=== PATIENT | female | born 1935 | race Caucasian/White ===

== ENCOUNTER → 2016-05-16 | Outpatient (CLI) | payer MEDICARE ==
[2016-05-16 10:50] LABS: ANION GAP 11 (5-19); BLOOD UREA NITROGEN 20 mg/dL (7-20); CALCIUM 9.3 mg/dL (8.4-10.2); CARBON DIOXIDE 30 mmol/L (22-30); CHLORIDE 89 mmol/L (98-107); CHOLESTEROL 194.05 mg/dL (0-200); CREATININE RESULT 0.63 mg/dL (0.52-1.25); Direct HDL 91 mg/dL (>40); GLUCOSE 81 mg/dL (75-110); POTASSIUM 4.8 mmol/L (3.6-5.0); SODIUM 129.7 mmol/L (137-145); TRIGLYCERIDES 104 mg/dL (<150)
[2016-05-16 11:01] LABS: DIRECT LDL 84 mg/dL (<100)
== END ==
LOC: OD 08:13
PROVIDERS: ATTEND Internal Medicine Cardiovascular Disease
DX: Z79.899 Other long term (current) drug therapy (principal)
CPT/HCPCS: 36415; 80048; 80061

== ENCOUNTER → 2016-06-08 | Outpatient (CLI) | payer MEDICARE | LOC: WI 14:21 | PROVIDERS: ATTEND Family Medicine | DX: Z12.31 Encounter for screening mammogram for malignant neoplasm of breast (principal) | CPT/HCPCS: 77067; G0202 ==

== ENCOUNTER 2016-06-21 21:18 | Emergency (ER) | payer MEDICARE ==
[2016-06-21 22:17] LABS: HEMATOCRIT 33.5 % (36.0-47.0); HEMOGLOBIN 11.6 g/dL (12.0-15.5); HGB HCT DIFFERENCE 1.3
[2016-06-21 22:37] LABS: MEAN CORPUSCULAR HEMOGLOBIN 34.2 pg (27.0-33.4); MEAN CORPUSCULAR HGB CONC 34.7 g/dL (32.0-36.0); MEAN CORPUSCULAR VOLUME 99 fl (80-97); RED CELL DISTRIBUTION WIDTH 12.6 % (11.5-14.0); WHITE BLOOD COUNT 9.6 10^3/uL (4.0-10.5)
[2016-06-21 22:41] LABS: BAND NEUTROPHILS % (MANUAL) 1 % (3-5); BASOPHILS % (MANUAL) 0 % (0-2); EOSINOPHILS % (MANUAL) 1 % (0-6); LYMPHOCYTES % (MANUAL) 15 % (13-45); TOTAL CELLS COUNTED 100
[2016-06-21 22:43] LABS: PLATELET CLUMPS PRESENT; RBC MORPHOLOGY COMMENT NORMO-CYTIC/CHROMIC
[2016-06-21 23:32] LABS: ALANINE AMINOTRANSFERASE 41 U/L (9-52); ALBUMIN 3.8 g/dL (3.5-5.0); ALKALINE PHOSPHATASE 106 U/L (38-126); ANION GAP 10 (5-19); ASPARTATE AMINO TRANSFERASE 29 U/L (14-36); BILIRUBIN,TOTAL 0.3 mg/dL (0.2-1.3); BLOOD UREA NITROGEN 22 mg/dL (7-20); CALCIUM 9.5 mg/dL (8.4-10.2); CARBON DIOXIDE 28 mmol/L (22-30); CHLORIDE 87 mmol/L (98-107); CREATINE KINASE 39 U/L (30-135); CREATININE RESULT 0.75 mg/dL (0.52-1.25); GLUCOSE 132 mg/dL (75-110); POTASSIUM 4.3 mmol/L (3.6-5.0); SODIUM 125.2 mmol/L (137-145); TOTAL PROTEIN 6.5 g/dL (6.3-8.2)
[2016-06-21 23:44] LABS: TROPONIN I < 0.012 ng/mL
[2016-06-22] MEDS ORDERED: NORMAL SALINE 1000 ML 1,000 ML IV ONE (01:01)
[2016-06-22 01:37] LABS: APPEARANCE,URINE CLOUDY; BILIRUBIN,URINE NEGATIVE (NEGATIVE); GLUCOSE, URINE NEGATIVE (NEGATIVE); KETONES,URINE NEGATIVE (NEGATIVE); LEUKOCYTE ESTERASE,URINE MODERATE (NEGATIVE); NITRITE,URINE NEGATIVE (NEGATIVE); PROTEIN,URINE 100 mg/dL (NEGATIVE); URINE SPECIFIC GRAVITY 1.009; UROBILINOGEN,URINE NEGATIVE mg/dL (<2.0)
[2016-06-22] MEDS ORDERED: CEPHALEXIN 500 MG CAPSULE PO ONE (03:54)
--- NOTE | 2016-06-22 03:57 | ER Document Report ---
ED General - General Chief Complaint: Syncope Stated Complaint: DIZZY Notes: Patient is an 80-year-old female with past medical history of hyponatremia, seizures, hypertension and paroxysmal atrial fibrillation who presents after an episode of syncope today. States this she was going from a sitting to standing position after urinating. Her states that she then began to lose consciousness and he helped her slide down a wall and gently sit on the floor. She's had multiple episodes of similar syncope in the past. This episode did occur approximately 45 minutes to one hour after taking her dose of metoprolol. She denies any preceding symptoms of chest pain, shortness of breath nausea or vomiting. States is identical to her prior episodes of passing out. At the time of my evaluation she denies any acute complaints. She has not seen her primary care doctor regarding today's concerns. Nothing is noted to increase the frequency of these episodes of syncope or prevent them. States that she's been eating and drinking adequately at home. TRAVEL OUTSIDE OF THE [place] IN LAST 30 DAYS: No - Related Data Allergies/Adverse Reactions: lisinopril Adverse Reaction (Verified 06/21/16 23:05) cough Past Medical History - General Information source: Patient, Parent - Social History Smoking Status: Never Smoker Frequency of alcohol use: None Drug Abuse: None Lives with: Spouse/Significant other Family History: Reviewed & Not Pertinent - Past Medical History Cardiac Medical History: Reports: Hx Atrial Fibrillation, Hx Hypercholesterolemia, Hx Hypertension Denies: Hx Congestive Heart Failure, Hx DVT, Hx Pulmonary Embolism Pulmonary Medical History: Denies: Hx Asthma, Hx COPD Neurological Medical History: Reports: Hx Seizures Endocrine Medical History: Reports: Hx Hypothyroidism. Denies: Hx Diabetes Mellitus Type 1, Hx Diabetes Mellitus Type 2, Hx Hyperthyroidism GI Medical History: Denies: Hx Cirrhosis, Hx Gastroesophageal Reflux Disease, Hx Hepatitis Musculoskeltal Medical History: Reports Hx Arthritis Psychiatric Medical History: Denies: Hx Depression Infectious Medical History: Denies: Hx Hepatitis Past Surgical History: Reports: Hx Cholecystectomy, Hx Hysterectomy, Hx Orthopedic Surgery - bilateral knee - Immunizations Immunizations up to date: Yes Hx Diphtheria, Pertussis, Tetanus Vaccination: Yes Hx Pneumococcal Vaccination: 02/11/14 Review of Systems - Review of Systems Notes: Constitutional: Negative for fever. HENT: Negative for sore throat. Eyes: Negative for visual changes. Cardiovascular: Negative for chest pain. Positive for syncope Respiratory: Negative for shortness of breath. Gastrointestinal: Negative for abdominal pain, vomiting or diarrhea. Genitourinary: Negative for dysuria. Musculoskeletal: Negative for back pain. Skin: Negative for rash. Neurological: Negative for headaches, weakness or numbness. 10 point ROS negative except as marked above and in HPI. Physical Exam - Vital signs Vitals: Temp 98.3 F 06/21/16 21:20 Interpretation: Normal Notes: PHYSICAL EXAMINATION: GENERAL: Well-appearing, well-nourished and in no acute distress. HEAD: Atraumatic, normocephalic. EYES: Pupils equal round and reactive to light, extraocular movements intact, sclera anicteric, conjunctiva are normal. ENT: nares patent, oropharynx clear without exudates. Moist mucous membranes. NECK: Normal range of motion, supple without lymphadenopathy LUNGS: Breath sounds clear to auscultation bilaterally and equal. No wheezes rales or rhonchi. HEART: Regular rate and rhythm without murmurs ABDOMEN: Soft, nontender, normoactive bowel sounds. No guarding, no rebound. No masses appreciated. EXTREMITIES: Normal range of motion, no pitting or edema. No cyanosis. NEUROLOGICAL: No focal neurological deficits. Moves all extremities spontaneously and on command. PSYCH: Normal mood, normal affect. SKIN: Warm, Dry, normal turgor, no rashes or lesions noted. Course - Re-evaluation Re-evalutation: 06/22/16 03:51 Presentation of syncope of unclear etiology. Patient normotensive, alert, without focal neurologic deficits at time of arrival. Denies syncope was during exertion. No preceding symptoms of palpitations, chest pain, or shortness of breath. Patient asymptomatic at time of arrival. EKG is without evidence of HCOM , right heart strain, ST changes to suggest ischemia, prolong QTc, delta wave, epsilon wave, or Brugada syndrome. Patient denies any family history of sudden cardiac , personal history of of structural heart disease. Patient denies any symptoms to suggest an acute PE, CO, TAD, SAH, seizure, or acute GI bleed as the etiology of their syncope today. On exam, no murmurs to suggest critical aortic stenosis as possible etiology. Of note, patient's symptoms occurred approximately one hour after taking metoprolol and I suspect this medication is likely contributed to her repeated episodes of syncope. I've encouraged the family discussed with the primary care doctor with discontinuing this medication as opposed to attempting aggressive blood pressure control. Based on overall clinical history, exam findings, vitals, and patients appearance, I feel it is safe for patient to be discharged home at this time with close outpatient follow-up and strict return precautions. Patient is in agreement with this plan, has verbalized indications for return to ED, and questions have been answered. - Vital Signs Vital signs: Temp Pulse Resp BP Pulse Ox 97.7 F 64 12 131/66 H 100 06/22/16 03:45 06/21/16 23:55 06/22/16 03:01 06/22/16 03:01 06/22/16 03:01 - Laboratory Result Diagrams: 06/21/16 22:08 06/21/16 23:12 Laboratory results interpreted by me: 06/21/16 06/21/16 06/22/16 22:08 23:12 01:10 RBC 3.40 L Hgb 11.6 L Hct 33.5 L MCV 99 H MCH 34.2 H Band Neutrophils % 1 L Sodium 125.2 L Chloride 87 L BUN 22 H Glucose 132 H Urine Protein 100 H Urine Blood SMALL H Ur Leukocyte Esterase MODERATE H - EKG Interpretation by Me Additional EKG results interpreted by me: 06/22/16 03:52 Sinus rhythm. Rate 67. No ST elevations or depressions. QTC is 427. Discharge - Discharge Clinical Impression: Hyponatremia, Medication adverse effect Syncope Qualifiers: Syncope type: unspecified Qualified Code(s): R55 - Syncope and collapse Urinary tract infection Qualifiers: Urinary tract infection type: acute cystitis Hematuria presence: without hematuria Qualified Code(s): N30.00 - Acute cystitis without hematuria Condition: Good Disposition: HOME, SELF-CARE Additional Instructions: You were seen today after an episode of passing out. Your EKG here is normal. At this time, we do not feel that your episode of passing out was from any life- threatening cause. I do believe the medication your taking call metoprolol is john to your episodes of passing out and you should discuss with your primary doctor about discontinuing this medicine. Please drink plenty of fluids over the next several days. Return to emergency department if you have any further episodes of syncope, headache, weakness, numbness, chest pain, or shortness of breath. Please follow up closely with your primary care physician. Prescriptions: Cephalexin Monohydrate [Keflex 500 mg Capsule] 500 mg PO QID #20 capsule Referrals: BENOIT DUPONT MD [Primary Care Provider] - Follow up tomorrow
[2016-06-22 04:36] VITALS: BP 158/76
--- NOTE | 2016-06-22 08:20 | EKG REPORT ---
SEVERITY:- OTHERWISE NORMAL ECG - SINUS OR ECTOPIC ATRIAL RHYTHM BORDERLINE LEFT AXIS DEVIATION : Confirmed by: Usha Root MD 22-Jun-2016 08:19:23
== END 2016-06-22 04:10 | disposition home or self-care (01) ==
LOC: ER 21:18
DX: E87.1 Hypo-osmolality and hyponatremia (principal); N30.00 Acute cystitis without hematuria; R55 Syncope and collapse; T50.995A Adverse effect of other drugs, medicaments and biological substances, initial encounter; R42 Dizziness and giddiness; I48.91 Unspecified atrial fibrillation; E78.00 Pure hypercholesterolemia, unspecified; I10 Essential (primary) hypertension; E03.9 Hypothyroidism, unspecified; Z90.49 Acquired absence of other specified parts of digestive tract; Z90.710 Acquired absence of both cervix and uterus
CPT/HCPCS: 93005; 99284; 36415; 87086; 82553; 82550; 85025; 80053; 81001; 84484; 93010; J7030

== ENCOUNTER → 2016-07-03 | Outpatient (CLI) | payer MEDICARE ==
[2016-07-03 09:40] LABS: ALANINE AMINOTRANSFERASE 44 U/L (9-52); ALBUMIN 3.9 g/dL (3.5-5.0); ALKALINE PHOSPHATASE 115 U/L (38-126); ASPARTATE AMINO TRANSFERASE 31 U/L (14-36); BILIRUBIN,TOTAL 0.4 mg/dL (0.2-1.3); TOTAL PROTEIN 6.9 g/dL (6.3-8.2); TRIGLYCERIDES 79 mg/dL (<150)
[2016-07-03 09:46] LABS: ANION GAP 11 (5-19); BLOOD UREA NITROGEN 18 mg/dL (7-20); CALCIUM 9.8 mg/dL (8.4-10.2); CARBON DIOXIDE 29 mmol/L (22-30); CHLORIDE 89 mmol/L (98-107); CREATININE RESULT 0.63 mg/dL (0.52-1.25); GLUCOSE 88 mg/dL (75-110); POTASSIUM 4.8 mmol/L (3.6-5.0); SODIUM 128.9 mmol/L (137-145)
[2016-07-03 09:50] LABS: DIRECT LDL 53 mg/dL (<100)
[2016-07-03 09:55] LABS: Direct HDL 113 mg/dL (>40)
== END ==
LOC: OD 08:23
PROVIDERS: ATTEND Internal Medicine Cardiovascular Disease
DX: E78.00 Pure hypercholesterolemia, unspecified (principal); Z79.899 Other long term (current) drug therapy
CPT/HCPCS: 36415; 80048; 80061; 80076

== ENCOUNTER 2016-07-09 21:19 | Inpatient (IN) | payer MEDICARE ==
--- NOTE | 2016-07-09 21:37 | ER Document Report ---
ED Medical Screen (RME) - General Stated Complaint: RAPID HEART RATE Mode of Arrival: Wheelchair Information source: Patient Notes: Patient presents to the emergency department with reports of rapid heart rate that started last afternoon. She denies chest pain. Denies fever vomiting diarrhea. Reports shortness of breath. History of A. fib. EKG ST. HR 150-160' s. I have greeted and performed a rapid initial assessment of this patient. A comprehensive ED assessment and evaluation of the patient, analysis of test results and completion of the medical decision making process will be conducted by additional ED providers. TRAVEL OUTSIDE OF THE [place] IN LAST 30 DAYS: No - Related Data Allergies/Adverse Reactions: lisinopril Adverse Reaction (Verified 06/21/16 23:05) cough Past Medical History - Past Medical History Cardiac Medical History: Reports: Hx Atrial Fibrillation, Hx Hypercholesterolemia, Hx Hypertension Denies: Hx Congestive Heart Failure, Hx DVT, Hx Pulmonary Embolism Pulmonary Medical History: Denies: Hx Asthma, Hx COPD Neurological Medical History: Reports: Hx Seizures Endocrine Medical History: Reports: Hx Hypothyroidism. Denies: Hx Diabetes Mellitus Type 1, Hx Diabetes Mellitus Type 2, Hx Hyperthyroidism GI Medical History: Denies: Hx Cirrhosis, Hx Gastroesophageal Reflux Disease, Hx Hepatitis Musculoskeltal Medical History: Reports Hx Arthritis Psychiatric Medical History: Denies: Hx Depression Infectious Medical History: Denies: Hx Hepatitis Past Surgical History: Reports: Hx Cholecystectomy, Hx Hysterectomy, Hx Orthopedic Surgery - bilateral knee - Immunizations Immunizations up to date: Yes Hx Diphtheria, Pertussis, Tetanus Vaccination: Yes
[2016-07-09] MEDS ORDERED: DILTIAZEM HCL INJ 25 MG/5 ML VIAL IV ONE (21:48)
[2016-07-09] MEDS ORDERED: DILTIAZEM HCL/D5W 125 ML IV PRN (21:48)
[2016-07-09] MEDS ORDERED: NORMAL SALINE 1000 ML 1,000 ML IV ONE (21:48)
--- NOTE | 2016-07-09 21:54 | ER Document Report ---
ED Cardiac <RENATA DENNEY - Last Filed: 07/10/16 02:07> - General Mode of Arrival: Wheelchair Information source: Patient, Relative - TRAVEL OUTSIDE OF THE [place] IN LAST 30 DAYS: No - HPI Patient complains to provider of: Other - rapid heart rate Associated symptoms: Other - See above <PEREZPARISAKISHORE - Last Filed: 07/15/16 10:15> - General Chief Complaint: Irregular Pulse Stated Complaint: RAPID HEART RATE Notes: This 80-year-old female patient comes to the emergency room with rapid heart rate that started around 7 PM this evening. Her gave her diltiazem 120 mg prior to arrival. She does have a history of paroxysmal atrial fibrillation. She has some mild dementia and tremor without a diagnosis for the tremor yet. It may well be Parkinson's. She denies any chest pain, or shortness of breath. EKG in the emergency room shows atrial fibrillation with a ventricular response rate of 154. She was given IV fluids, 15 mg of Cardizem IV bolus, and converted to normal sinus rhythm. Her primary care provider is Dr. Apodaca in her information systems coordinator is Dr. Edilberto Koo. (RENAAT DENNEY) Patient is an 80 year old female, with a past medical history including dementia , HTN and A-Fib, who presents to the emergency department complaining of rapid heart rate onset at 1900 this evening. reports he administered 120mg of Diltiazem at 2000. Patient denies any chest pain or chest pressure. Patient denies being on any fluid pills and has no history of CHF. Patient does not know what her tremor is diagnosed as, is unsure if it is Parkinson's. Per patient saw Dr. Franklin last week and was told she was normal. PCP: Dr. Apodaca Cash Van Salesperson: Dr. Franklin (PEREZKISHORE) - Related Data Allergies/Adverse Reactions: lisinopril Adverse Reaction (Verified 07/10/16 02:34) cough Home Medications: Current Home Medications Aspirin [Aspirin 81 mg Chewable Tablet] 81 mg PO QAM 07/10/16 [History] Carbamazepine [Tegretol 200 mg Tablet] 200 mg PO TID@0800,1500,2200 07/10/16 [ History] Docusate Sodium [Colace 100 mg Capsule] 100 mg PO BID@0800,2200 07/10/16 [ History] Ezetimibe [Zetia 10 mg Tablet] 10 mg PO DAILY@1900 07/10/16 [History] Gabapentin [Neurontin 100 mg Capsule] 100 mg PO TID@0800,1500,2200 07/10/16 [ History] Levothyroxine Sodium [Synthroid 0.05 mg Tablet] 50 mcg PO DAILY@0700 07/10/16 [ History] Memantine HCl [Namenda Xr] 7 mg PO QHS 07/10/16 [History] Rosuvastatin Calcium [Crestor 20 mg Tablet] 20 mg PO Q48H 07/10/16 [History] Zinc Sulfate [Zinc-220 Capsule] 220 mg PO QAM 07/10/16 [History] Past Medical History - General Information source: Patient - Social History Smoking Status: Never Smoker Chew tobacco use (# tins/day): No Frequency of alcohol use: None Drug Abuse: None Family History: Reviewed & Not Pertinent Patient has suicidal ideation: No Patient has homicidal ideation: No - Past Medical History Cardiac Medical History: Reports: Hx Atrial Fibrillation, Hx Hypercholesterolemia, Hx Hypertension Neurological Medical History: Reports: Hx Seizures Endocrine Medical History: Reports: Hx Hypothyroidism Musculoskeltal Medical History: Reports Hx Arthritis Past Surgical History: Reports: Hx Cholecystectomy, Hx Hysterectomy, Hx Orthopedic Surgery - bilateral knee replacement - Immunizations Immunizations up to date: Yes Hx Diphtheria, Pertussis, Tetanus Vaccination: Yes Hx Pneumococcal Vaccination: 02/11/14 <KISHORE PEREZ - Last Filed: 07/15/16 10:15> Review of Systems - Review of Systems Constitutional: No symptoms reported EENT: No symptoms reported Cardiovascular: See HPI, Heart racing. denies: Chest pain Respiratory: No symptoms reported Gastrointestinal: No symptoms reported Genitourinary: No symptoms reported Female Genitourinary: No symptoms reported Musculoskeletal: No symptoms reported Skin: No symptoms reported Hematologic/Lymphatic: No symptoms reported Neurological/Psychological: No symptoms reported -: Yes All other systems reviewed and negative <KISHORE PEREZ - Last Filed: 07/15/16 10:15> Physical Exam - Vital signs Interpretation: Tachycardic - General General appearance: Appears well, Alert - HEENT Head: Normocephalic, Atraumatic - Respiratory Respiratory status: No respiratory distress Chest status: Nontender Breath sounds: Normal Chest palpation: Normal - Cardiovascular Rhythm: Tachycardia Heart sounds: Normal auscultation Murmur: No - Abdominal Inspection: Normal Distension: No distension Bowel sounds: Normal Tenderness: Nontender - soft Organomegaly: No organomegaly - Extremities General upper extremity: Normal inspection General lower extremity: Normal inspection. No: Edema - Neurological Neuro grossly intact: Yes Cognition: Normal Orientation: AAOx4 - mildly demented Dora Coma Scale Eye Opening: Spontaneous Dora Coma Scale Verbal: Oriented Dory Coma Scale Motor: Obeys Commands Dory Coma Scale Total: 15 Speech: Normal - Psychological Associated symptoms: Normal affect, Normal mood - Skin Skin Temperature: Warm Skin Moisture: Dry Skin Color: Normal <KISHORE PEREZ - Last Filed: 07/15/16 10:15> - Vital signs Vitals: Temp Pulse Resp BP Pulse Ox 98.3 F 158 H 16 101/68 98 07/09/16 21:35 07/09/16 21:35 07/09/16 21:35 07/09/16 21:35 07/09/16 21:35 Course - Laboratory Result Diagrams: 07/09/16 21:53 07/09/16 21:53 - EKG Interpretation by Me EKG shows normal: [place], Intervals, QRS Complexes. abnormal: ST-T Waves - Minimal inferior ST depression Rate: Tachycardia - 154 Rhythm: A.Fib - Consults Dr. Pierce Time consulted: 02:00 Consulted provider: will come to ER <RENATA DENNEY - Last Filed: 07/10/16 02:07> - Laboratory Result Diagrams: 07/12/16 05:49 07/12/16 05:49 <KISHORE PEREZ - Last Filed: 07/15/16 10:15> - Re-evaluation Re-evalutation: 07/10/16 02:03 After the patient received 15 mg of Cardizem IV, she converted to a normal sinus rhythm with an EKG eventually done about 2 hours later which showed a normal sinus rhythm with a rate of 68 and a completely normal EKG. (RENATA DENNEY) - Vital Signs Vital signs: Temp Pulse Resp BP Pulse Ox 98.3 F 74 16 122/48 L 99 07/12/16 09:45 07/12/16 09:45 07/12/16 09:45 07/12/16 09:45 07/12/16 09:45 - Laboratory Laboratory results interpreted by me: 07/09/16 07/09/16 07/10/16 21:53 21:53 02:15 MCV 100 H Seg Neutrophils % 83.1 H Lymphocytes % 12.0 L Sodium 126.0 L Chloride 91 L BUN 22 H Glucose 145 H Urine Protein 100 H Urine Glucose (UA) 50 H Ur Leukocyte Esterase TRACE H 07/10/16 05:15 MCV Seg Neutrophils % Lymphocytes % Sodium 127.7 L Chloride 96 L BUN Glucose Urine Protein Urine Glucose (UA) Ur Leukocyte Esterase Critical Care Note - Critical Care Note Total time excluding time spent on procedures (mins): 30 <RENATA DENNEY - Last Filed: 07/10/16 02:07> Discharge - Discharge Admitting Provider: Hospitalist Unit Admitted: IMCU <RENATA DENNEY - Last Filed: 07/10/16 02:07> <KISHORE PEREZ - Last Filed: 07/15/16 10:15> - Discharge Clinical Impression: Atrial fibrillation with rapid ventricular response, Elevated troponin Disposition: ADMITTED OBSERVATION Scribe Attestation: 07/10/16 02:07 I personally performed the services described in the documentation, reviewed and edited the documentation which was dictated to the scribe in my presence, and it accurately records my words and actions. (RENATA DENNEY) Scribe Documentation - Scribe Written by Monserrat:: [email or web address] Gilbert, 07/09/16, [id number] acting as scribe for :: Samir <KISHORE PEREZ - Last Filed: 07/15/16 10:15>
[2016-07-09 22:10] LABS: PROTHROMBIN TIME 11.8 SEC (11.4-15.4)
[2016-07-09 22:12] LABS: ABSOLUTE LYMPHOCYTES (AUTO) 0.8 10^3/uL (0.5-4.7); ABSOLUTE MONOCYTES (AUTO) 0.3 10^3/uL (0.1-1.4); ABSOLUTE NEUT (AUTO) 5.7 10^3/uL (1.7-8.2); BASOPHILS % (AUTO) 0.6 % (0-2); EOSINOPHILS % (AUTO) 0.2 % (0-6); HEMATOCRIT 37.8 % (36.0-47.0); HEMOGLOBIN 12.5 g/dL (12.0-15.5); HGB HCT DIFFERENCE -0.3; MEAN CORPUSCULAR HEMOGLOBIN 33.1 pg (27.0-33.4); MEAN CORPUSCULAR HGB CONC 33.2 g/dL (32.0-36.0); MEAN CORPUSCULAR VOLUME 100 fl (80-97); MONOCYTES % (AUTO) 4.1 % (3-13); RED BLOOD COUNT 3.79 10^6/uL (3.72-5.28); SEGMENTED NEUTROPHILS % (AUTO) 83.1 % (42-78); WHITE BLOOD COUNT 6.9 10^3/uL (4.0-10.5)
[2016-07-09 22:24] LABS: ALANINE AMINOTRANSFERASE 46 U/L (9-52); ALKALINE PHOSPHATASE 110 U/L (38-126); ANION GAP 11 (5-19); ASPARTATE AMINO TRANSFERASE 35 U/L (14-36); BILIRUBIN,TOTAL 0.4 mg/dL (0.2-1.3); BLOOD UREA NITROGEN 22 mg/dL (7-20); CALCIUM 9.3 mg/dL (8.4-10.2); CARBON DIOXIDE 24 mmol/L (22-30); CHLORIDE 91 mmol/L (98-107); CREATINE KINASE 36 U/L (30-135); CREATININE RESULT 0.66 mg/dL (0.52-1.25); GLUCOSE 145 mg/dL (75-110); POTASSIUM 4.7 mmol/L (3.6-5.0); TOTAL PROTEIN 7.3 g/dL (6.3-8.2)
[2016-07-09 22:34] LABS: CREATINE KINASE MB 1.41 ng/mL (<4.55)
[2016-07-09 22:42] LABS: TROPONIN I 0.086 ng/mL
--- NOTE | 2016-07-09 23:50 | EKG REPORT ---
SEVERITY:- ABNORMAL ECG - SUPRAVENTRICULAR TACHYCARDIA MINIMAL ST DEPRESSION, INFERIOR LEADS : Confirmed by: Rosaura Loera 09-Jul-2016 23:49:35
[2016-07-10 01:47] LABS: CREATINE KINASE MB 1.8 ng/mL (<4.55)
[2016-07-10 01:54] LABS: TROPONIN I 0.207 ng/mL
[2016-07-10 02:52] LABS: APPEARANCE,URINE CLEAR; BILIRUBIN,URINE NEGATIVE (NEGATIVE); GLUCOSE, URINE 50 mg/dL (NEGATIVE); KETONES,URINE NEGATIVE (NEGATIVE); LEUKOCYTE ESTERASE,URINE TRACE (NEGATIVE); NITRITE,URINE NEGATIVE (NEGATIVE); PROTEIN,URINE 100 mg/dL (NEGATIVE); URINE SPECIFIC GRAVITY 1.009; UROBILINOGEN,URINE NEGATIVE mg/dL (<2.0)
[2016-07-10] MEDS ORDERED: ACETAMINOPHEN 325 MG TABLET PO PRN (04:52)
--- NOTE | 2016-07-10 05:17 | PDOC H&P ---
History of Present Illness Admission Date/PCP: 07/10/16 04:[address] Neuro Patient complains of: rapid heart rate History of Present Illness: CHARLES LEBRON is a 80 year old female with underlying known paroxysmal atrial fibrillation, not on chronic anticoagulation, with last episode of rapid ventricular rate 3 years ago, along with underlying history of recurrent syncopal episodes, trigeminal neuralgia, questionable seizure disorder , hypothyroidism, hyperlipidemia, hypertension, who presents to the emergency room for evaluation of above complaint. Noted the onset of rapid heart rate approximately 7 PM the evening of the . At 8 PM, administered 120 mg of oral diltiazem. This is previous prescription, with patient actually having been instructed to stop taking this medication, due to the above-noted history of syncopal episodes. No associated chest pain or chest pressure, nausea vomiting, fever chills, diarrhea or dysuria. Was noted be quite tachycardic upon arrival in the emergency room, felt to be in atrial fibrillation. Was given a 15 mg Cardizem IV bolus in the emergency room, with subsequent conversion to normal sinus rhythm. Has remained in sinus rhythm, again chest pain and pressure free. Concern is for her rising troponin levels. Patient has been discussed with emergency room physician who evaluated the patient. . Laboratory results are listed in [employer] and are reviewed. X-ray summary results are listed below, with full report(s) reviewed. . EKG's reviewed. And compared to a prior tracing from June 21 of this year. Social history/personal habits: . Has children. Lives with . Housewife. No use of alcohol tobacco or illicit drugs. Allergies/adverse reactions are listed in [employer] and are reviewed. Home medications are reviewed from a typed list of medications provided by patient and and [facility]. Home medications initially autopopulated into [email or web address] may not accurately reflect patient's true medications, dosages, and/or frequencies. Compliant with medications. No recent medication changes. REVIEW OF SYSTEMS: Constitutional: No fever or chills. Eyes: Wears glasses. ENT: No swallowing problems or complaints. No hearing problems or complaints. Pulmonary: No current complaints. Cardiovascular: See history and present illness. Gastrointestinal: No current complaints, including nausea or vomiting. Skin: No current complaints, including rashes. Hematologic: Easy bruising. Neurologic: No current complaints, including numbness or tingling. Musculoskeletal: Joint pain from arthritis. Psychiatric: No current complaints, including anxiety or depression. Endocrine: No current complaints, including polyuria. Genitourinary: No current complaints, including dysuria. PHYSICAL EXAMINATION: Temperature 98.3. 5 feet tall. 78.3 kg. BMI 33.7 kg/m. Blood pressure 139/ 65. Pulse 64 and regular. 98 percent saturation on room air. Respirations are 12 and unlabored. Somewhat obese otherwise well-developed elderly female who appears a bit younger than her stated age. Pleasant awake alert and cooperative. No obvious distress other than perhaps mildly anxious. is present at her side with her approval. Skin is warm and dry. No grossly obvious evidence of rash in areas of skin examined. No subcutaneous nodules palpated. ENT: Hearing grossly normal to normal conversation. Tongue midline on protrusion pink and slightly tacky. Eyes: No scleral icterus. Pupils equal and reactive to light at 4 mm. [place] conjunctivae. Neck is supple and nontender to gentle active range of motion and palpation. Midline trachea. No palpable thyroid nodule mass enlargement or tenderness. Lymphatic: No palpable cervical or clavicular nodes. Neck and lymphatic exams limited by patient body habitus. Psychiatric: Reasonable insight into acute and chronic medical issues. Oriented to time location and why here. Lungs: Auscultation reveals clear and equal breath sounds bilaterally. No use of accessory respiratory muscles. Cardiovascular: Heart regular rate and rhythm, without gallop murmur or rub. No carotid or abdominal aortic bruits. No ankle or pedal edema. Faintly palpable dorsalis pedis pulses. Abdomen: soft, slightly obese, nontender with positive bowel sounds. Unable to adequately evaluate abdomen for masses or organomegaly due to body habitus. Extremities: Feet are warm and dry. No calf tenderness to compression. No grossly obvious visual evidence of calf swelling. Gentle manipulation of lower extremities fails to reveal any obvious evidence of injury or instability to knees hips or ankles. Neurologic: Moves upper extremities grossly normally. Patellar reflexes absent. Absent Babinski. Light touch is intact at feet. Dorsiflexion and plantarflexion of feet 5 / 5 and symmetric. Past Medical History Medical History: Other - Please refer to history and physical exam from 2015 for additional information concerning past medical history. Cardiac Medical History: Reports: Atrial Fibrillation, Hyperlipidema, Hypertension Denies: Congestive Heart Failure, DVT, Pulmonary Embolism Pulmonary Medical History: Denies: Asthma, Chronic Obstructive Pulmonary Disease (COPD) Neurological Medical History: Reports: Seizures Endocrine Medical History: Reports: Hypothyroidism Denies: Diabetes Mellitus Type 1, Diabetes Mellitus Type 2, Hyperthyroidism GI Medical History: Denies: Cirrhosis, Gastroesophageal Reflux Disease, Hepatitis Musculoskeltal Medical History: Reports: Arthritis Psychiatric Medical History: Denies: Alcohol Dependency, Depression, General Anxiety Disorder, Substance Abuse, Tobacco Dependency Hematology: Reports: Anemia Past Surgical History Past Surgical History: Reports: Cholecystectomy, Hysterectomy, Orthopedic Surgery - bilateral knee replacement Social History Information Source: Patient, Emergency Med Personnel, [facility] Records Lives with: Spouse/Significant other Smoking Status: Never Smoker Frequency of Alcohol Use: None Hx Recreational Drug Use: No Hx Prescription Drug Abuse: No - Advance Directive Resuscitation Status: Full Code Surrogate healthcare decision maker:: Family History Family History: Reviewed & Not Pertinent Parental Family History Reviewed: Yes Children Family History Reviewed: Yes Sibling(s) Family History Reviewed.: Yes Medication/Allergy Home Medications: RX: Aspirin [Aspirin 81 mg Chewable Tablet] 81 mg PO QAM 07/10/16 RX: Carbamazepine [Tegretol 200 mg Tablet] 200 mg PO TID@0800,1500,2200 RX: Docusate Sodium [Colace 100 mg Capsule] 100 mg PO BID@0800,2200 07/10/16 RX: Ezetimibe [Zetia 10 mg Tablet] 10 mg PO DAILY@1900 07/10/16 RX: Gabapentin [Neurontin 100 mg Capsule] 100 mg PO TID@0800,1500,2200 07/10/16 RX: Levothyroxine Sodium [Synthroid 0.05 mg Tablet] 50 mcg PO DAILY@0700 RX: Memantine HCl [Namenda Xr] 7 mg PO QHS 07/10/16 RX: Rosuvastatin Calcium [Crestor 20 mg Tablet] 20 mg PO Q48H 07/10/16 RX: Zinc Sulfate [Zinc-220 Capsule] 220 mg PO QAM 07/10/16 RX: Metoprolol Tartrate [Lopressor 25 mg Tablet] 25 mg PO DAILY@1900 30 Days Allergies/Adverse Reactions: lisinopril Adverse Reaction (Verified 07/10/16 02:34) cough Physical Exam Vital Signs: Temp Pulse Resp BP Pulse Ox 98.3 F 158 H 19 135/64 H 100 07/09/16 21:35 07/09/16 21:35 07/10/16 02:26 07/10/16 02:26 07/10/16 02:26 Results Impressions: Chest X-Ray 07/10/16 02:02 IMPRESSION: No acute radiographic finding in the chest. Assessment & Plan - Diagnosis (2) Seizure disorder Is this a current diagnosis for this admission?: YesPlan: No recent episode. Seizure precautions.Resume home medications as appropriate once these have been reviewed. (3) Abnormal urinalysis Is this a current diagnosis for this admission?: YesPlan: Urine culture. Will forego antibiotics at this point in time. Treated 3 weeks ago for urinary tract infection with a 5 day regimen of Ceftin. Recent subsequent urine culture at primary care provider's office was negative , according to . (4) Elevated troponin Is this a current diagnosis for this admission?: YesPlan: Not unexpected, given her presenting problem. However, will trend troponins to ensure these begin to decline. Again, remains chest pain-free. I have strongly encouraged patient not to get out of bed without notifying staff , to avoid a fall with injury. Knee high SCDs for DVT prophylaxis, along with subcutaneous Lovenox . Impression and plans were discussed with patient, and , both of whom concur. Time spent in evaluation and management of patient: 63 minutes. (5) HTN (hypertension) Qualifiers: Hypertension type: essential hypertension Qualified Code(s): I10 - Essential (primary) hypertension Is this a current diagnosis for this admission?: YesPlan: Resume home medications as appropriate once these have been reviewed. (6) Hyponatremia Is this a current diagnosis for this admission?: YesPlan: Long-standing problem for patient. Follow-up chemistry. (7) Hypothyroidism Qualifiers: Hypothyroidism type: unspecified Qualified Code(s): E03.9 - Hypothyroidism, unspecified Is this a current diagnosis for this admission?: YesPlan: Will repeat TSH, given patient's episode of SVT. Resume home medications as appropriate once these have been reviewed.
[2016-07-10 05:45] LABS: ANION GAP 8 (5-19); BLOOD UREA NITROGEN 18 mg/dL (7-20); CALCIUM 9.1 mg/dL (8.4-10.2); CARBON DIOXIDE 24 mmol/L (22-30); CHLORIDE 96 mmol/L (98-107); CREATININE RESULT 0.54 mg/dL (0.52-1.25); GLUCOSE 90 mg/dL (75-110); MAGNESIUM 1.9 mg/dL (1.6-2.3); POTASSIUM 4.8 mmol/L (3.6-5.0); SODIUM 127.7 mmol/L (137-145)
[2016-07-10] MEDS ORDERED: (PENDING PHARMACY ID) (Rosuvastatin Calcium [Crestor 20 Mg Tablet] 20 MG) PO SCH (05:45)
[2016-07-10] MEDS: GABAPENTIN 100 MG CAPSULE PO SCH ×3 (05:59→21:52)
[2016-07-10 07:54] LABS: ADD ON TESTING BLD IN LAB ACKNOWLEDGE
[2016-07-10] MEDS ORDERED: CARBAMAZEPINE 100 MG TAB.CHEW PO ONE (08:00)
[2016-07-10] MEDS: ENOXAPARIN SODIUM INJ 40 MG/0.4 ML DISP.SYRIN SUBCUT SCH (08:03)
[2016-07-10] MEDS: LEVOTHYROXINE SODIUM 0.05 MG TABLET PO SCH (08:03)
--- NOTE | 2016-07-10 08:15 | Physician Advisory Note ---
Physician Advisor ProgressNote .: Pursuant to the plan for [facility], I have reviewed the medical record for this patient. Physician Advisor Statement: Possible documentation opportunities if attending agrees: 1. Status - possible change - see below. 2. "Hyponatremia, chronic, likely due to " As always, if concerned about any unstable VS or abnormal labs, please comment on them & note what doing about them, & please document each day the potential clinical problems you are concerned could occur if pt not kept in hospital for tx at this time. Discussion: 80yo female w/ chronic co-morbidities including PAfib, recurrent syncope for which she was taken off Cardizem in past, chr hyponatremia, dementia, HTN, tremor, hypothyroidism, possible sz d/o - presented 3/12 PM to ED w/rapid HR. gave her a dose of Cardizem po prior to arrival. (+) HR 150s, R10, Na 126, BUN 22, Cr 0.66, trop I 0.080, initial EKG looks like SVT at 154. U/A w/tr LE, (+)glc/pro. Attending ordered tele, sz prec.s, serial cardiac enzymes, metoprolol 25mg daily (?new or chronic med?), I/Os. Status: Appropriately brought in as Outpt Obs for Afib RVR, elevated trop I's, for monitoring & serial cardiac enzymes. She was brought in with order for Metoprolol 25mg daily (?chronic med or new? - home meds list not yet in H&P or computer), but no further CCB. Since coming in, she has had rising trop I's, recurrent bradypnea, with occasional O2 sats listed in 80s but without report of increased work of breathing or distress. Repeat EKG in AM shows HR about 60, possible flutter waves. If attending finds these points concerning enough to need further tx/eval in hospital setting for at least another MN to protect pt's health, safety, & medical condition, then pt may be appropriately changed to Inpatient status with clear documentation of attending concerns. If, however, attending determines, after review of today's information, that pt is sufficiently stabilized to safely go home today, she should remain Outpt Obs status. Thanks for your help with documentation accuracy/specificity improvement! Maida Chin MD [facility] Physician Advisor, Fellow of [facility]
[2016-07-10 08:25] LABS: CREATINE KINASE 49 U/L (30-135)
[2016-07-10] MEDS ORDERED: CARBAMAZEPINE 100 MG TAB.CHEW PO SCH (10:00)
[2016-07-10] MEDS: EZETIMIBE 10 MG TABLET PO SCH (10:59)
[2016-07-10] MEDS: ASPIRIN 81 MG TABLET, CHEWABLE PO SCH (10:59)
[2016-07-10] MEDS: DOCUSATE SODIUM 100 MG CAPSULE PO SCH ×2 (11:00→18:48)
[2016-07-10] MEDS: METOPROLOL SUCCINATE 25 MG TAB.SR.24H PO SCH (11:02)
[2016-07-10 11:13] LABS: CREATINE KINASE MB 3.41 ng/mL (<4.55)
[2016-07-10 11:27] LABS: TROPONIN I 0.271 ng/mL
--- NOTE | 2016-07-10 13:56 | EKG REPORT ---
SEVERITY:- ABNORMAL ECG - SINUS RHYTHM : Confirmed by: Rosaura Loera 10-Jul-2016 13:56:03
--- NOTE | 2016-07-10 13:56 | EKG REPORT ---
SEVERITY:- NORMAL ECG - SINUS RHYTHM : Confirmed by: Rosaura Loera 10-Jul-2016 13:56:09
[2016-07-10] MEDS: CARBAMAZEPINE 100 MG TAB.CHEW PO SCH ×2 (14:51→21:52)
[2016-07-10] MEDS: CEFTRIAXONE 1 GM/D5W RTU 1 GM/50 ML RTUPB IV SCH (18:48)
[2016-07-10] MEDS ORDERED: ATORVASTATIN CALCIUM 20 MG TABLET PO SCH (22:00)
[2016-07-10] MEDS ORDERED: MEMANTINE HCL 7 MG PO SCH (22:00)
[2016-07-11] MEDS: CARBAMAZEPINE 100 MG TAB.CHEW PO SCH ×3 (06:00→22:03)
[2016-07-11] MEDS: GABAPENTIN 100 MG CAPSULE PO SCH ×3 (06:00→22:03)
[2016-07-11] MEDS: DOCUSATE SODIUM 100 MG CAPSULE PO SCH ×2 (09:48→18:43)
[2016-07-11] MEDS: ASPIRIN 81 MG TABLET, CHEWABLE PO SCH (09:48)
[2016-07-11] MEDS: LEVOTHYROXINE SODIUM 0.05 MG TABLET PO SCH (09:48)
[2016-07-11] MEDS: EZETIMIBE 10 MG TABLET PO SCH (09:48)
[2016-07-11] MEDS: METOPROLOL SUCCINATE 25 MG TAB.SR.24H PO SCH (09:49)
[2016-07-11] MEDS: ENOXAPARIN SODIUM INJ 40 MG/0.4 ML DISP.SYRIN SUBCUT SCH (09:49)
--- NOTE | 2016-07-11 09:53 | CONSULTATION REPORT E ---
Consultation Report NAME: CHARLES LEBRON : 1935 AGE: 80Y DATE: 07/11/2016 304 A TO: ORLANDO RAMÍREZ M.D. FROM: CARMEN CASANOVA M.D. Requesting Physician CHIEF COMPLAINT: Right heart palpitations. HISTORY OF PRESENT ILLNESS: This 80-year-old female is known to have narrow complex tachycardia on metoprolol 25 mg extended release once daily. She was doing well with last attack being 2-3 years ago when on the day of admission 2016, while resting after dinner, she felt sudden onset of rapid palpitations with a heart rate of 160 and a blood pressure of 157/137 according to the . The gave her 1 STAT dose of Cardizem 120 mg (outdated)and subsequent serial blood pressures went down to 130 systolic. Rapid heart rate never changed and was still going 150 times a minute. She was therefore brought to the ER. In the ER, she was found to have narrow complex tachycardia at 154 BPM and the tentative diagnosis was atrial fibrillation (but this is not atrial fibrillation). She was given IV Cardizem 15 mg bolus and she spontaneously converted to normal sinus rhythm 68 BPM, subsequently admitted for further treatment. She denied any associated symptoms of chest pain, shortness of breath, dizziness, or syncope. No preceding fever, sore throat, or urinary infection or cough. She had no stroke symptoms and no myalgias. It is recorded that patient was last seen on 07/04/2016 in my office for regular followup. At that time, I noted that she had a neuroxardiogenic syncopal episode. On 06/21/2016, she went to the ER and was admitted overnight for observation and was diagnosed as having "dehydration and postural hypotension", none of which could be confirmed on review of her medical records. She was told to stop metoprolol, so she did stop the metoprolol from 06/21/2016 to 07/04/2016. At her office visit I told both patient and that it is unwise and without evidence that her syncopal attack was due to her small dose of metoprolol 25 mg, which she has been taking for years, especially for controlling her PSVT. Moreover, a recent Holter about 4 months ago showed that her heart rate ranged on that Holter monitoring day was between 57 and 107 per minute showing no evidence of severe bradycardia to have caused her dizziness or syncope. Therefore I urged them to resume taking the metoprolol 25mg qd and patient did resume taking the metoprolol either on the or the 8th of this month, 6-7 days prior to this admission. On her admission, patient's vital signs were normal. She did not have any ventricular or atrial ectopies. She stayed in normal sinus rhythm throughout. However, it was noted that her troponin I initially in the ER was 0.086, minimally elevated, and subsequent troponin I went up to 0.207 to 0.307 and then trending down to 0.271. Dr. Cody called me regarding the elevated troponin I. It is recalled the patient denied ever having any chest pains during this episode. In 2007, patient did have a cardiac catheterization for atypical chest pain in the form of chest tightness and underwent cardiac catheterization that showed that she had a 30% lesion in the mid LAD, therefore, patient was treated with medical therapy, including statins and Crestor 20 mg and Zetia 10 mg with good suppression of her cholesterol down to 52 on this combination. Given the fact that it has been 9 years since her last catheterization, it is possible that even with perfect cholesterol suppression the lesion could have become more stenotic continued and she likely had small degree of myocardial necrosis a Type II VT from supply/demand imbalance due to tachycardia mediated CM resulting in ischemia and therefore some myocardial necrosis evidence by cardiac biomarkers. Therefore, I recommended Dr. Cody to order an IV Lexiscan stress MPI since patient is unable to walk on a treadmill. This will be done today. PAST MEDICAL HISTORY: Other medical problems include: 1. Hypertension. 2. Syncopal episodes 1 or 2 times a year usually due to neurocardiogenic syncope. 3. Hypercholesterolemia. 4. No diabetes. No previous VT. No previous stroke. 5. Hypothyroidism. 6. No peripheral artery disease. 7. dementia. 8. Intentional tremors. 9. History of seizures. 10. Trigeminal neuralgia. PREVIOUS SURGERIES: Include: 1. Cholecystectomy. 2. Hysterectomy. 3. Bilateral knee replacements. SOCIAL HISTORY: Patient does not smoke, does not drink, and no use of illicit substances. CURRENT MEDICATIONS: Include: 1. Aspirin. 2. Cholesterol 20 mg. 3. Zocor 10 mg. 4. Tegretol. 5. Neurontin. 6. Toprol XR 25 mg daily. 7. Losartan 100 mg daily. 8. Nitroglycerin p.r.n. 9. Cardizem 120 plain p.r.n. for right heart palpitations. FAMILY HISTORY: Noncontributory. REVIEW OF SYSTEMS: As above in HPI. PHYSICAL EXAMINATION: GENERAL: Finds her to be in no acute distress. VITAL SIGNS: On arrival in the ER the blood pressure is 106/68, heart rate 150 BPM, saturation 99%, temperature 98.3, respirations 10. Most recent blood pressure this morning was 139/61, heart rate 64. No respiratory distress. HEENT: She has a normocephalic skull. Pupils equal and reactive to light and accommodation. Ears, nose, and throat normal. The patient's memory is impaired. History mostly obtained from her at the bedside. NECK: No carotid or vertebral bruits. JVP was not distended. HEART: PMI not palpable. S4 present, sounds normal. Grade 2/6 systolic ejection murmur heard left lower sternal border. CHEST: Normal breath sounds. No adventitious sounds. ABDOMEN: Obesity. No abdominal bruit. No hepatosplenomegaly. EXTREMITIES: Legs showed no edema, there was tibial tenderness on palpation for ankle edema, this is chronic for her. NEUROLOGICAL: Entirely normal. LABORATORY TESTING: Hemoglobin 12.5, white cell count 6.9, platelets 239. The renal function showed BUN 22, creatinine 0.66. Sodium 126-127 and potassium was 4.7. Her TSH was 0.87 on 0.05 mg Synthroid. Her magnesium level was 1.9. Her nonfasting blood sugar was 145. The troponin I was 0.086, increasing to 0.207, increasing to 0.307 and then trending down to 0.271 as of yesterday. 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 Mild ST depression was seen in the inferolateral leads. Subsequently, EKG showed conversion to normal sinus rhythm [address] changes. Chest x-ray showed no cardiomegaly, no congestive heart failure, and no pneumonic consolidation. ASSESSMENT: 1. 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 This is the first recurrence in the last 2-3 years, according to the . It was partly triggered by the withholding of her metoprolol succinate 25 mg for 2 weeks before I found out and recommended they start her back on her Toprol XL. Given the fact that patient's rapid palpitations occurred so rarely, I reserved the option for radiofrequency ablation until her attacks become uncontrollable or become more frequent and more clinically symptomatic. 2. Rising troponin I, trending down. This is most likely a type 2 VT. There is no ST elevation. 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 3. History of syncope, mostly neurocardiogenic syncope, no treatment. Her most recent syncopal attack was misdiagnosed as dehydration, hypovolemia secondary to her small dose of Toprol XL, upon which she was told to stop her metoprolol, but her metoprolol has since been resumed after found out and should be continued for prevention. 4. Hypercholesterolemia, under control. 5. Hypertension, under control. 6. History of trigeminal neuralgia. 7. Dementia. 8. Hypothyroidism, with TSH of 0.87, there is no iatrogenic hyperthyroidism to incite this narrow complex PSVT. RECOMMENDATIONS: 1. Patient will undergo IV Lexiscan MPI, to rule out significant LAD ischemia or progression of other minor coronary arteries in the last 9 years. Further recommendation to follow once we know the result of the stress test. 2. Patient is to continue with metoprolol succinate sustained release 25 mg daily plus her statins and blood pressure medication. DICTATING PHYSICIAN: ORLANDO RAMÍREZ M.D. [id number] PHY#: [id number] ID: [id number] JOB#: [id number] ACCT: [id number] cc:ORLANDO RAMÍREZ M.D. > [facility] CENTERBrown
--- NOTE | 2016-07-11 11:26 | Physician Advisory Note ---
Physician Advisor ProgressNote .: Pursuant to the plan for [facility], I have reviewed the medical record for this patient. Physician Advisor Statement: Summary PA note, including info from PA note: Possible documentation opportunities if attending agrees: 1. Status / Medical necessity - please document clinical reasons pt needed 2nd MN - see below (fitness consultant documentation needs to be echoed by attending for coders to picker / packer dx.s). 2. "Hyponatremia, chronic, likely due to " 3. "PSVT" 4. "Acute Cardiac Ischemia, type 2 (demand ischemia) involving inf-lat wall of heart (likely the ___ artery/-ies)" 5. Did the bradypnea & dropped O2 sats concern attending, too? As always, if concerned about any unstable VS or abnormal labs, please comment on them & note what doing about them, & please document each day the potential clinical problems you are concerned could occur if pt not kept in hospital for tx at this time. Discussion: 80yo female w/ chronic co-morbidities including PAfib, recurrent syncope for which she was taken off Cardizem in past, chr hyponatremia, dementia, HTN, tremor, hypothyroidism, possible sz d/o - presented 3/12 PM to ED w/rapid HR. gave her a dose of Cardizem po prior to arrival. (+) HR 150s, R10, Na 126, BUN 22, Cr 0.66, trop I 0.080, initial EKG looks like SVT at 154. U/A w/tr LE, (+)glc/pro. Attending ordered tele, sz prec.s, serial cardiac enzymes, metoprolol 25mg daily (?new or chronic med?), I/Os. Status: Appropriately brought in as Outpt Obs for Afib RVR, elevated trop I's, for monitoring & serial cardiac enzymes. She was brought in with order for Metoprolol 25mg daily (chronic med), but no further CCB. Since coming in, she had rising & falling trop I's, recurrent bradypnea, with occasional O2 sats listed in 80s but without report of increased work of breathing or distress. Freelance Photographer documents PSVT, likely an AV Ember reentrant tachycardia, with mild ST depreession in inf-lat leads, past mild underlying CAD, possible acute cardiac ischemia, needing to stay another night to get stress testing before determination of safe d/c plan. Pt required continued hospital care & monitoring for a 2nd MN to protect pt's health, safety, & medical condition. Pt appropriate for Inpatient status with clear documentation of concerns by attending. Thanks for your help with documentation accuracy/specificity improvement! Maida Chin MD [facility] Physician Advisor, Fellow of [facility]
[2016-07-11] MEDS ORDERED: REGADENOSON INJ 0.4 MG/5 ML DISP.SYRIN IV ONE (12:43)
--- NOTE | 2016-07-11 17:59 | PDOC PROGRESS REPORT ---
Subjective Progress Note for:: 07/11/16 Subjective:: Patient denies any chest pain however she has had some shortness of breath intermittently. She is scheduled to get a stress test today. Physical Exam Vital Signs: Temp Pulse Resp BP Pulse Ox 98.8 F 70 16 151/60 H 99 07/11/16 15:49 07/11/16 15:49 07/11/16 15:49 07/11/16 15:49 07/11/16 15:49 Intake & Output 07/10/16 07/11/16 07/12/16 06:59 06:59 06:59 Intake Total 1162 100 Output Total 400 Balance 1162 -300 Weight 74.9 kg General appearance: PRESENT: no acute distress Eye exam: PRESENT: conjunctiva pink. ABSENT: scleral icterus Ear exam: PRESENT: normal external ear exam Mouth exam: PRESENT: moist, tongue midline Neck exam: ABSENT: carotid bruit, JVD, lymphadenopathy, thyromegaly Respiratory exam: PRESENT: clear to auscultation herbert. ABSENT: rales, rhonchi, wheezes Cardiovascular exam: PRESENT: RRR. ABSENT: diastolic murmur, rubs, systolic murmur GI/Abdominal exam: PRESENT: normal bowel sounds, soft. ABSENT: distended, guarding, mass, organolmegaly, rebound, tenderness Rectal exam: PRESENT: deferred Extremities exam: ABSENT: calf tenderness, clubbing, pedal edema Neurological exam: PRESENT: awake, oriented to person, oriented to place, oriented to time Psychiatric exam: PRESENT: appropriate affect Skin exam: PRESENT: dry, intact, warm. ABSENT: cyanosis, rash Results Impressions: Chest X-Ray 07/10/16 02:02 IMPRESSION: No acute radiographic finding in the chest. Assessment & Plan - Diagnosis (1) Atrial fibrillation Is this a current diagnosis for this admission?: YesPlan: The patient has had atrial fibrillation along with paroxysmal ventricular tachycardia. She has positive troponins and I'm concerned about whether this may represent cardiac ischemia. The patient has been evaluated by cardiology and we appreciate their input. Patient is scheduled for stress test today. I feel this patient is not safe to go home until the results of the stress test are normal because of her high risk for decompensation especially in light of her episodes of hypoxia. (2) Elevated troponin Is this a current diagnosis for this admission?: YesPlan: This may be related to the tachycardia however patient has a stress test scheduled. (3) Seizure disorder Is this a current diagnosis for this admission?: YesPlan: Patient has remained seizure-free. (4) ARF (acute renal failure) Qualifiers: Acute renal failure type: unspecified Qualified Code(s): N17.9 - Acute kidney failure, unspecified Is this a current diagnosis for this admission?: YesPlan: Resolved (5) Mild dementia Is this a current diagnosis for this admission?: Yes (6) HTN (hypertension) Qualifiers: Hypertension type: essential hypertension Qualified Code(s): I10 - Essential (primary) hypertension Is this a current diagnosis for this admission?: YesPlan: Patient has had episodes of bradycardia and she has been on a beta sim previously. We'll follow cardiology's recommendations regarding beta sim usage (7) Hyponatremia Is this a current diagnosis for this admission?: YesPlan: Patient's sodium has increased overnight. We'll continue to monitor. (8) Hypothyroidism Qualifiers: Hypothyroidism type: unspecified Qualified Code(s): E03.9 - Hypothyroidism, unspecified Is this a current diagnosis for this admission?: YesPlan: Continue with Synthroid. (9) UTI (lower urinary tract infection) Is this a current diagnosis for this admission?: YesPlan: She has been started on Rocephin for the urinary tract infection. Will follow urine cultures. - Time Time Spent with patient: 25-34 minutes - Inpatient Certification Medical Necessity: Need Close Monitoring Due to Risk of Patient Decompensation - Plan Summary Plan Summary: Concerned about the risk for decompensation given the patient's positive troponins and episodes of bradycardia and hypotension. Because of this we will monitor for at least one more midnight hospital.
[2016-07-11] MEDS: CEFTRIAXONE 1 GM/D5W RTU 1 GM/50 ML RTUPB IV SCH (18:43)
[2016-07-11] MEDS ORDERED: ATORVASTATIN CALCIUM 40 MG TABLET PO SCH (22:00)
[2016-07-12 06:02] LABS: ABSOLUTE BASOPHILS # (AUTO) 0.1 10^3/uL (0.0-0.2); ABSOLUTE EOSINOPHILS # (AUTO) 0.1 10^3/uL (0.0-0.6); ABSOLUTE LYMPHOCYTES (AUTO) 0.9 10^3/uL (0.5-4.7); ABSOLUTE MONOCYTES (AUTO) 0.7 10^3/uL (0.1-1.4); ABSOLUTE NEUT (AUTO) 3.6 10^3/uL (1.7-8.2); BASOPHILS % (AUTO) 1.2 % (0-2); EOSINOPHILS % (AUTO) 2.7 % (0-6); HEMATOCRIT 33.6 % (36.0-47.0); HEMOGLOBIN 11.7 g/dL (12.0-15.5); HGB HCT DIFFERENCE 1.5; LYMPHOCYTES % (AUTO) 16.8 % (13-45); MEAN CORPUSCULAR HEMOGLOBIN 34.2 pg (27.0-33.4); MEAN CORPUSCULAR HGB CONC 34.8 g/dL (32.0-36.0); MEAN CORPUSCULAR VOLUME 98 fl (80-97); MONOCYTES % (AUTO) 12.1 % (3-13); RED BLOOD COUNT 3.41 10^6/uL (3.72-5.28); RED CELL DISTRIBUTION WIDTH 12.8 % (11.5-14.0); SEGMENTED NEUTROPHILS % (AUTO) 67.2 % (42-78); WHITE BLOOD COUNT 5.4 10^3/uL (4.0-10.5)
[2016-07-12 06:36] LABS: ANION GAP 9 (5-19); BLOOD UREA NITROGEN 19 mg/dL (7-20); CALCIUM 9.3 mg/dL (8.4-10.2); CARBON DIOXIDE 25 mmol/L (22-30); CHLORIDE 88 mmol/L (98-107); CREATININE RESULT 0.59 mg/dL (0.52-1.25); GLUCOSE 99 mg/dL (75-110); POTASSIUM 4.3 mmol/L (3.6-5.0)
[2016-07-12] MEDS: CARBAMAZEPINE 100 MG TAB.CHEW PO SCH (06:36)
[2016-07-12] MEDS: GABAPENTIN 100 MG CAPSULE PO SCH (06:36)
[2016-07-12 09:51] VITALS: BP 122/48
[2016-07-12] MEDS: ENOXAPARIN SODIUM INJ 40 MG/0.4 ML DISP.SYRIN SUBCUT SCH (10:03)
[2016-07-12] MEDS: DOCUSATE SODIUM 100 MG CAPSULE PO SCH (10:05)
[2016-07-12] MEDS: LEVOTHYROXINE SODIUM 0.05 MG TABLET PO SCH (10:06)
[2016-07-12] MEDS: METOPROLOL SUCCINATE 25 MG TAB.SR.24H PO SCH (10:07)
[2016-07-12] MEDS: ASPIRIN 81 MG TABLET, CHEWABLE PO SCH (10:07)
[2016-07-12] MEDS: EZETIMIBE 10 MG TABLET PO SCH (10:07)
--- NOTE | 2016-07-12 11:53 | PDOC DISCHARGE SUMMARY ---
General - Admit/Disc Date/PCP Admission Date/Primary Care Provider: 07/10/16 14:26 BENOIT DUPONT MD Discharge Date: 07/12/16 - Discharge Diagnosis (1) Atrial fibrillation Is this a current diagnosis for this admission?: Yes (2) Elevated troponin Is this a current diagnosis for this admission?: Yes (3) Seizure disorder Is this a current diagnosis for this admission?: Yes (4) ARF (acute renal failure) Is this a current diagnosis for this admission?: Yes (5) Mild dementia Is this a current diagnosis for this admission?: Yes (6) HTN (hypertension) Is this a current diagnosis for this admission?: Yes (7) Hyponatremia Is this a current diagnosis for this admission?: Yes (8) Hypothyroidism Is this a current diagnosis for this admission?: Yes - Additional Information Resuscitation Status: Full Code Discharge Diet: Cardiac Discharge Activity: Activity As Tolerated, Balance Activity w/Rest Home Medications: Aspirin [Aspirin 81 mg Chewable Tablet] 81 mg PO QAM 07/10/16 Carbamazepine [Tegretol 200 mg Tablet] 200 mg PO TID@0800,1500,0 07/10/16 Docusate Sodium [Colace 100 mg Capsule] 100 mg PO BID@0800,2200 07/10/16 Ezetimibe [Zetia 10 mg Tablet] 10 mg PO DAILY@1900 07/10/16 Gabapentin [Neurontin 100 mg Capsule] 100 mg PO TID@0800,1500,2200 07/10/16 Levothyroxine Sodium [Synthroid 0.05 mg Tablet] 50 mcg PO DAILY@0700 07/10/16 Memantine HCl [Namenda Xr] 7 mg PO QHS 07/10/16 Rosuvastatin Calcium [Crestor 20 mg Tablet] 20 mg PO Q48H 07/10/16 Zinc Sulfate [Zinc-220 Capsule] 220 mg PO QAM 07/10/16 Metoprolol Tartrate [Lopressor 25 mg Tablet] 25 mg PO DAILY@1900 30 Days History of Present Illness History of Present Illness: CHARLES LEBRON is a 80 year old female with a history of atrial fibrillation who presented with tachycardia. The patient prior to this presentation had went to the emergency room and her beta sim was stopped because of a recent episode of near-syncope and questionable hypotension. The patient was found to be in atrial fibrillation when she arrived and had palpitations but did not have any chest pain. She also is noted have elevation of her troponin. Hospital Course Hospital Course: 80-year-old female with a history of paroxysmal atrial fibrillation who presented with tachycardia. The patient had recently stopped her metoprolol 25 cm from physician she saw for a near syncopal episode. She presented and tachycardia and was found to be atrial fibrillation with a rapid ventricular rate. She was treated with diltiazem with resolution of her symptoms. She was restarted back on her metoprolol. She was noted have slight elevation in her troponins although she did not have any chest pain. Patient was seen by Dr. Koo of cardiology in consultation and he ordered a stress test which was negative for any ischemia. He recommended the patient remain on the metoprolol as she had done previously. Patient was thought to possibly have a urinary tract infection of her cultures were negative. Physical Exam Vital Signs: Temp Pulse Resp BP Pulse Ox 98.3 F 74 16 122/48 L 99 07/12/16 09:45 07/12/16 09:45 07/12/16 09:45 07/12/16 09:45 07/12/16 09:45 Intake & Output 07/11/16 07/12/16 07/13/16 06:59 06:59 06:59 Intake Total 1162 1522 Output Total 400 Balance 1162 1122 Weight 74.9 kg 73.1 kg General appearance: PRESENT: no acute distress Eye exam: PRESENT: conjunctiva pink. ABSENT: scleral icterus Mouth exam: PRESENT: moist, tongue midline Neck exam: ABSENT: JVD Respiratory exam: PRESENT: clear to auscultation herbert. ABSENT: rales, rhonchi, wheezes Cardiovascular exam: PRESENT: RRR. ABSENT: diastolic murmur, rubs, systolic murmur GI/Abdominal exam: PRESENT: normal bowel sounds, soft. ABSENT: distended, guarding, mass, organolmegaly, rebound, tenderness Extremities exam: ABSENT: calf tenderness, clubbing, pedal edema Neurological exam: PRESENT: alert, awake, oriented to person, oriented to place Psychiatric exam: PRESENT: appropriate affect Skin exam: PRESENT: dry, intact, warm. ABSENT: cyanosis, rash Results Laboratory Results: 07/12/16 05:49 07/12/16 05:49 07/12/16 07/12/16 05:49 05:49 WBC 5.4 RBC 3.41 L Hgb 11.7 L Hct 33.6 L MCV 98 H MCH 34.2 H MCHC 34.8 RDW 12.8 Plt Count 187 Seg Neutrophils % 67.2 Lymphocytes % 16.8 Monocytes % 12.1 Eosinophils % 2.7 Basophils % 1.2 Absolute Neutrophils 3.6 Absolute Lymphocytes 0.9 Absolute Monocytes 0.7 Absolute Eosinophils 0.1 Absolute Basophils 0.1 Sodium 122.0 L Potassium 4.3 Chloride 88 L Carbon Dioxide 25 Anion Gap 9 BUN 19 Creatinine 0.59 Est GFR ( Amer) > 60 Est GFR (Non-Af Amer) > 60 Glucose 99 Calcium 9.3 Impressions: Chest X-Ray 07/10/16 02:02 IMPRESSION: No acute radiographic finding in the chest. Qualifiers PATEINT BEING DISCHARGED WITH ANY OF THE FOLLOWING DIAGNOSIS?: No Plan Discharge Plan: she is discharged to home in stable condition. She will follow up with her primary care as well as her full time babysitter in 2 weeks. Time Spent: Less than 30 Minutes
--- NOTE | 2016-07-13 15:41 | RADIOLOGY REPORT ---
STRESS TEST REPORT PATIENT NAME: CHARLES LEBRON ROOM#: [id number] DATE OF SERVICE: 07/11/2016 AGE: 80Y ORDER#: [id number] REFERRING MD: REMY MARTINEZ MD INDICATION: Assessment of elevated Troponin I, history of coronary disease, status post spontaneous conversion of AVNRT, rate 158 per minute. PROCEDURE PERFORMED: REST/STRESS SINGLE ISOTOPE CARDIOLITE SPECT IMAGING WITH IV LEXISCAN STRESS AND GATED SPECT IMAGING. CLINICAL HISTORY: This 80-year-old female with known coronary artery disease, with cardiac risk factors of hypertension and hypercholesterolemia, and a history of paroxysmal supraventricular tachycardia 158, post spontaneous conversion, Troponin I was elevated to 0.3, therefore need to assess for coronary artery disease. REPORT: Patient received IV Lexiscan 0.4 mg infused over 10 seconds and flushed. The resting heart rate was 70 bpm and increased to 86 bpm at end infusion. The resting blood pressure was 136/78 and increased to 162/80 at end infusion. Patient had no chest pain symptoms and no shortness of breath. Resting 12-lead EKG showed normal sinus rhythm, 70 bpm, nonspecific T inversions were seen. At end infusion, no increased T inversions were seen in AVL. Myocardial perfusion imaging was performed at rest 60 minutes following the injection of 13.31 mCi of Cardiolite. Ten seconds after the IV Lexiscan injection, patient was injected with 40 mCi of Cardiolite and flushed. Gated post-stress tomographic imaging was performed 60 minutes after stress. FINDINGS: The overall quality of the study is good. The left ventricular cavity is noted to be normal in size on both the rest and stress studies. There is no evidence of abnormal transient ischemic dilatation of the left ventricle. The TID ratio was normal at 0.98. SPECT images showed no evidence of IV Lexiscan induced reversible perfusion defect, and no fixed perfusion defect. The gated SPECT imaging showed normal motion and contraction of all LV segments. The left ventricular ejection fraction was calculated to be 56%. IMPRESSION: MYOCARDIAL PERFUSION IMAGING IS NORMAL. THERE IS NO EVIDENCE OF IV LEXISCAN INDUCED REVERSIBLE PERFUSION DEFECT AND NO FIXED PERFUSION DEFECT. OVERALL LEFT VENTRICULAR SYSTOLIC FUNCTION WAS NORMAL WITH NO REGIONAL WALL MOTION ABNORMALITY. NO PRIOR STUDIES FOR COMPARISON. INTERPRETING PHYSICIAN: ORLANDO RAMÍREZ M.D. /: RUTH TT: [id number] ID: [id number] /: [id number] TD: [id number] JOB: [id number] cc:Yang ERICKSON M.D. > MTDD
== END 2016-07-12 11:35 | disposition home or self-care (01) | DRG 309 ==
LOC: ER 21:19 → UNDOADMOB 07-10 04:05 → EH 07-10 04:05 → UNDOADMOB 07-10 04:53 → EH 07-10 04:53 → 3N 07-10 06:50 → EH 07-10 06:50 → OBSVTOIN 07-10 14:26 → 3N 07-10 14:26
PROVIDERS: ADMIT Family Medicine; ATTEND Family Medicine
DX: I48.0 Paroxysmal atrial fibrillation (principal); E87.1 Hypo-osmolality and hyponatremia; N17.9 Acute kidney failure, unspecified; E03.9 Hypothyroidism, unspecified; E78.5 Hyperlipidemia, unspecified; I10 Essential (primary) hypertension; G40.909 Epilepsy, unspecified, not intractable, without status epilepticus; R74.8 Abnormal levels of other serum enzymes; F03.90 Unspecified dementia, unspecified severity, without behavioral disturbance, psychotic disturbance, mood disturbance, and anxiety; M19.90 Unspecified osteoarthritis, unspecified site; G25.2 Other specified forms of tremor; Z96.653 Presence of artificial knee joint, bilateral; Z90.49 Acquired absence of other specified parts of digestive tract; Z90.710 Acquired absence of both cervix and uterus; Z79.82 Long term (current) use of aspirin; Z79.899 Other long term (current) drug therapy; Z88.8 Allergy status to other drugs, medicaments and biological substances
CPT/HCPCS: 36415; 71010; 78452; 80048; 80053; 81001; 82550; 82553; 83735; 84443; 84484; 85025; 85610; 87086; 93005; 93010; 93017; 96361; 96374; 99291; A9500; G0378; J0696; J1650; J2785; J3490; J7030; Q9969

== ENCOUNTER → 2016-10-25 | Outpatient (CLI) | payer MEDICARE ==
[2016-10-25 16:22] LABS: HEMATOCRIT 35.3 % (36.0-47.0); HGB HCT DIFFERENCE 0.7; MEAN CORPUSCULAR HEMOGLOBIN 32.8 pg (27.0-33.4); MEAN CORPUSCULAR HGB CONC 33.9 g/dL (32.0-36.0); MEAN CORPUSCULAR VOLUME 97 fl (80-97); RED BLOOD COUNT 3.65 10^6/uL (3.72-5.28); RED CELL DISTRIBUTION WIDTH 12.5 % (11.5-14.0); WHITE BLOOD COUNT 6.9 10^3/uL (4.0-10.5)
[2016-10-25 16:44] LABS: ANION GAP 13 (5-19); BLOOD UREA NITROGEN 21 mg/dL (7-20); CALCIUM 9.6 mg/dL (8.4-10.2); CARBON DIOXIDE 26 mmol/L (22-30); CHLORIDE 87 mmol/L (98-107); CREATININE RESULT 0.72 mg/dL (0.52-1.25); GLUCOSE 103 mg/dL (75-110); POTASSIUM 5.1 mmol/L (3.6-5.0); SODIUM 125.6 mmol/L (137-145)
== END ==
LOC: OD 14:53
PROVIDERS: ATTEND Internal Medicine Cardiovascular Disease
DX: R60.9 Edema, unspecified (principal)
CPT/HCPCS: 36415; 80048; 83880; 84443; 85027

== ENCOUNTER → 2016-10-30 | Outpatient (CLI) | payer MEDICARE ==
[2016-10-30 15:35] LABS: ANION GAP 12 (5-19); BLOOD UREA NITROGEN 23 mg/dL (7-20); CALCIUM 9.3 mg/dL (8.4-10.2); CARBON DIOXIDE 28 mmol/L (22-30); CHLORIDE 91 mmol/L (98-107); CREATININE RESULT 0.79 mg/dL (0.52-1.25); GLUCOSE 86 mg/dL (75-110); POTASSIUM 4.5 mmol/L (3.6-5.0); SODIUM 130.7 mmol/L (137-145)
== END ==
LOC: OD 13:37
PROVIDERS: ATTEND Internal Medicine Cardiovascular Disease
DX: R00.2 Palpitations (principal)
CPT/HCPCS: 36415; 80048

== ENCOUNTER → 2016-12-04 | Outpatient (CLI) | payer MEDICARE | LOC: OD 15:40 | PROVIDERS: ATTEND Family Medicine | DX: E03.9 Hypothyroidism, unspecified (principal); Z79.899 Other long term (current) drug therapy | CPT/HCPCS: 36415; 84436; 84443 ==

== ENCOUNTER → 2017-04-26 | Outpatient (CLI) | payer MEDICARE ==
[2017-04-26 13:09] LABS: ANION GAP 9 (5-19); BLOOD UREA NITROGEN 20 mg/dL (7-20); CARBON DIOXIDE 30 mmol/L (22-30); CHLORIDE 94 mmol/L (98-107); GLUCOSE 91 mg/dL (75-110); POTASSIUM 5.2 mmol/L (3.6-5.0); SODIUM 133.1 mmol/L (137-145)
== END ==
LOC: OD 12:19
PROVIDERS: ATTEND Family Medicine
DX: E03.9 Hypothyroidism, unspecified (principal); I10 Essential (primary) hypertension; G50.0 Trigeminal neuralgia; E87.6 Hypokalemia; Z79.899 Other long term (current) drug therapy
CPT/HCPCS: 36415; 80048; 83036

== ENCOUNTER → 2017-06-11 | Outpatient (CLI) | payer MEDICARE ==
--- NOTE | 2017-06-12 06:36 | WOMENS IMAGING REPORT ---
EXAM DESCRIPTION: 3D SCREENING MAMMO BILAT COMPLETED DATE/TIME: 06/11/2017 1:28 pm REASON FOR STUDY: SCREENING MAMMO Z12.31 ENCNTR SCREEN MAMMOGRAM FOR MALIGNANT NEOPLASM OF LACHELLE COMPARISON: 06/08/2016 and 12/25/2012. TECHNIQUE: Standard craniocaudal and mediolateral oblique views of each breast recorded using digita l acquisition and breast tomosynthesis. LIMITATIONS: None. FINDINGS: No masses, calcifications or architectural distortion. No areas of suspicion. Read with the assistance of CAD. .[facility] - R2 Cenova Version 1.3 .[facility] - R2 Cenova Version 1.3 .[facility] - R2 Cenova Version 2.4 .[facility] [place] - R2 Cenova Version 2.4 .[facility] - R2 Speech Pathologist Version 9.2 IMPRESSION: NORMAL MAMMOGRAM. BIRADS 1. BREAST DENSITY: c. The breasts are heterogeneously dense, which may obscure small masses. BIRAD: 1 NEGATIVE RECOMMENDATION: ROUTINE SCREENING COMMENT: The patient has been notified of the results by letter per MQSA requirements. Additional no tification policies are in place for contacting patient with suspicious or incomplete findings. Quality ID #225: The [employer] [place] [employer] recommends an annual screening mammogram for women aged 40 years or over. This facility utilizes a reminder system to ensure that all patients receive reminder letters, and/or direct phone calls for appointments. This includes reminders for routine scr eening mammograms, diagnostic mammograms, or other Breast Imaging Interventions when appropriate. Th is patient will be placed in the appropriate reminder system. The [place] [employer] (ACR) has developed recommendations for screening MRI of the breast s in certain patient populations, to be used in conjunction with mammography. Breast MRI surveillanc e may be appropriate for women with more than 20% lifetime risk of developing breast cancer as deter mined by genetic testing, significant family history of the disease, or history of mantle radiation f or Hodgkins Disease. ACR Practice Guidelines 2008. DBT Technology DBT is a type of tomographic mammography. With conventional mammography, overlapping breast tissue ma y make lesions difficult to detect, even with good compression. DBT uses an x-ray tube that rotates a round the breast, taking images at different angles. These images are then combined to create thin sl ices of the breast that the radiologist can view as a 3D reconstruction. The [employer] unit can perform full-field digital mammograms (2D imaging); or DBT (3D imaging); or both, in a combination mode that quickly performs both the mammogram and the tomosynthesis scan while the breast is still compressed. PQRS 6045F: Fluoroscopic imaging is not utilized for breast tomosynthesis. TECHNICAL DOCUMENTATION: FINDING NUMBER: (1) ASSESSMENT: (1) JOB ID: [id number] [email or web address]- All Rights Reserved
== END ==
LOC: WI 12:57
PROVIDERS: ATTEND Family Medicine
DX: Z12.31 Encounter for screening mammogram for malignant neoplasm of breast (principal)
CPT/HCPCS: 77063; 77067

== ENCOUNTER 2017-06-14 15:28 | Inpatient (IN) | payer MEDICARE ==
--- NOTE | 2017-06-14 15:43 | ER Document Report ---
ED General - General Stated Complaint: WEAKNESS Time Seen by Provider: 06/14/17 15:41 TRAVEL OUTSIDE OF THE [place] IN LAST 30 DAYS: No - HPI Patient complains to provider of: Weakness, fatigue, , fever, cough Notes: 81-year-old female who presents with 1 day history of increasing work of breathing, cough, fever weakness and myalgias. Patient got the flu shot this year but has not been feeling well since yesterday afternoon. Presents with her equally as elderly concern for her well-being. Patient febrile 101.2 prehospital given Tylenol by EMS. Patient not requiring any supplemental oxygen per - Related Data Allergies/Adverse Reactions: lisinopril Adverse Reaction (Verified 06/14/17 16:56) cough Past Medical History - Social History Smoking Status: Unknown if Ever Smoked Family History: Reviewed & Not Pertinent - Past Medical History Cardiac Medical History: Reports: Hx Atrial Fibrillation, Hx Hypercholesterolemia, Hx Hypertension Denies: Hx Congestive Heart Failure, Hx DVT, Hx Pulmonary Embolism Pulmonary Medical History: Denies: Hx Asthma, Hx COPD Neurological Medical History: Reports: Hx Seizures Endocrine Medical History: Reports: Hx Hypothyroidism. Denies: Hx Diabetes Mellitus Type 1, Hx Diabetes Mellitus Type 2, Hx Hyperthyroidism Renal/ Medical History: Denies: Hx Peritoneal Dialysis GI Medical History: Denies: Hx Cirrhosis, Hx Gastroesophageal Reflux Disease, Hx Hepatitis Musculoskeltal Medical History: Reports Hx Arthritis Psychiatric Medical History: Denies: Hx Depression Infectious Medical History: Denies: Hx Hepatitis Past Surgical History: Reports: Hx Cholecystectomy, Hx Hysterectomy, Hx Orthopedic Surgery - bilateral knee replacement - Immunizations Immunizations up to date: Yes Hx Diphtheria, Pertussis, Tetanus Vaccination: Yes Hx Pneumococcal Vaccination: 02/11/14 Review of Systems - Review of Systems Constitutional: Fever, Weakness. denies: No symptoms reported EENT: No symptoms reported Cardiovascular: No symptoms reported Respiratory: Cough Gastrointestinal: No symptoms reported Genitourinary: No symptoms reported Female Genitourinary: No symptoms reported Musculoskeletal: No symptoms reported Skin: No symptoms reported Hematologic/Lymphatic: No symptoms reported Neurological/Psychological: No symptoms reported Physical Exam - Notes Notes: PHYSICAL EXAMINATION: GENERAL: Well-appearing, well-nourished and in mild acute distress. HEAD: Atraumatic, normocephalic. EYES: Pupils equal round and reactive to light, extraocular movements intact, sclera anicteric, conjunctiva are normal. ENT: nares patent, oropharynx clear without exudates. Moist mucous membranes. NECK: Normal range of motion, supple without lymphadenopathy LUNGS: Breath sounds clear to auscultation bilaterally and equal. No wheezes rales or rhonchi. HEART: Regular rate and rhythm without murmurs ABDOMEN: Soft, nontender, normoactive bowel sounds. No guarding, no rebound. No masses appreciated. EXTREMITIES: Normal range of motion, no pitting or edema. No cyanosis. NEUROLOGICAL: Cranial nerves grossly intact. Normal speech, normal gait. Normal sensory and motor exams. PSYCH: Normal mood, normal affect. SKIN: Warm, Dry, normal turgor, no rashes or lesions noted. Course - Re-evaluation Re-evalutation: 06/14/17 15:49 Elderly female presents febrile with productive cough. Will order sepsis workup including appropriate fluid resuscitation. 06/14/17 17:07 Elderly female presents febrile and tachycardic. Given fluid resuscitation blood cultures drawn. Patient's lactic acid 2.3 no leukocytosis. Patient's chest x-ray does not get read as a focal infiltrate but she auscultates if she has a pneumonia. Patient be started on ceftriaxone and azithromycin and admitted to the hospital for close management of her pneumonia. - Laboratory Result Diagrams: 06/14/17 16:19 06/14/17 16:19 Laboratory results interpreted by me: 06/14/17 06/14/17 06/14/17 16:19 16:19 16:19 RBC 3.31 L Hgb 11.0 L Hct 32.2 L MCV 98 H Seg Neutrophils % 80.0 H Lymphocytes % 9.9 L Sodium 127.3 L Chloride 92 L Est GFR (Non-Af Amer) 58 L Glucose 170 H Lactic Acid 2.5 H - EKG Interpretation by Me Additional EKG results interpreted by me: 06/14/17 16:32 Normal sinus rhythm 94 bpm, no ST elevations or depressions, no pathologic T- wave inversions. Discharge - Discharge Clinical Impression: Pneumonia Clinical Impression: (Ruled Out): Pneumonia allergic Condition: Stable Disposition: ADMITTED INPATIENT Admitting Provider: Errol Figueroa Onime
[2017-06-14] MEDS ORDERED: NORMAL SALINE 1000 ML 1,000 ML IV ONE (15:47)
[2017-06-14] MEDS ORDERED: IPRATROPIUM/ALBUTEROL 0.5-2.5 MG/3 ML AMPUL NEB ONE (15:47)
[2017-06-14 16:36] LABS: ABSOLUTE LYMPHOCYTES (AUTO) 0.7 10^3/uL (0.5-4.7); ABSOLUTE MONOCYTES (AUTO) 0.6 10^3/uL (0.1-1.4); ABSOLUTE NEUT (AUTO) 5.5 10^3/uL (1.7-8.2); BASOPHILS % (AUTO) 0.5 % (0-2); EOSINOPHILS % (AUTO) 0.2 % (0-6); HEMATOCRIT 32.2 % (36.0-47.0); LYMPHOCYTES % (AUTO) 9.9 % (13-45); MEAN CORPUSCULAR HEMOGLOBIN 33.1 pg (27.0-33.4); MEAN CORPUSCULAR VOLUME 98 fl (80-97); MONOCYTES % (AUTO) 9.4 % (3-13); PLATELET COUNT 176 10^3/uL (150-450); RED BLOOD COUNT 3.31 10^6/uL (3.72-5.28); RED CELL DISTRIBUTION WIDTH 13.1 % (11.5-14.0); TOTAL CELLS COUNTED % (AUTO) 100 %; WHITE BLOOD COUNT 6.8 10^3/uL (4.0-10.5)
--- NOTE | 2017-06-14 16:40 | RADIOLOGY REPORT (SQ) ---
EXAM DESCRIPTION: CHEST SINGLE VIEW COMPLETED DATE/TIME: 06/14/2017 4:11 pm REASON FOR STUDY: fever COMPARISON: June 2016 EXAM PARAMETERS: NUMBER OF VIEWS: One view. TECHNIQUE: Single frontal radiographic view of the chest acquired. RADIATION DOSE: NA LIMITATIONS: Patient has made a lesser inspiration. FINDINGS: LUNGS AND PLEURA: No opacities, masses or pneumothorax. No pleural effusion. MEDIASTINUM AND HILAR STRUCTURES: No masses. Contour normal. HEART AND VASCULAR STRUCTURES: Heart normal in size. Normal vasculature. BONES: No acute findings. HARDWARE: None in the chest. OTHER: No other significant finding. IMPRESSION: NO ACUTE RADIOGRAPHIC FINDING IN THE CHEST. TECHNICAL DOCUMENTATION: JOB ID: [id number] [employer]- All Rights Reserved
[2017-06-14 16:48] LABS: A TYPE INFLUENZA AG NEGATIVE (NEGATIVE); B INFLUENZA AG NEGATIVE (NEGATIVE)
[2017-06-14 16:52] LABS: ALANINE AMINOTRANSFERASE 31 U/L (9-52); ALBUMIN 3.8 g/dL (3.5-5.0); ALKALINE PHOSPHATASE 90 U/L (38-126); ANION GAP 10 (5-19); ASPARTATE AMINO TRANSFERASE 28 U/L (14-36); BILIRUBIN,DIRECT 0.2 mg/dL (0.0-0.4); BILIRUBIN,TOTAL 0.2 mg/dL (0.2-1.3); BLOOD UREA NITROGEN 19 mg/dL (7-20); CALCIUM 9.3 mg/dL (8.4-10.2); CARBON DIOXIDE 25 mmol/L (22-30); CHLORIDE 92 mmol/L (98-107); GLUCOSE 170 mg/dL (75-110); POTASSIUM 4.3 mmol/L (3.6-5.0); SODIUM 127.3 mmol/L (137-145); TOTAL PROTEIN 6.7 g/dL (6.3-8.2)
[2017-06-14] MEDS ORDERED: CEFTRIAXONE INJ 1000 MG VIAL IV ONE (17:02)
[2017-06-14] MEDS ORDERED: AZITHROMYCIN INJ 500 MG VIAL IV ONE (17:03)
[2017-06-14] MEDS: NORMAL SALINE 1000 ML 1,000 ML IV PRN (20:22)
[2017-06-14] MEDS ORDERED: ENOXAPARIN SODIUM INJ 40 MG/0.4 ML DISP.SYRIN SUBCUT ONE (20:30)
[2017-06-14] MEDS: GABAPENTIN 300 MG CAPSULE PO SCH (21:10)
[2017-06-14] MEDS: METOPROLOL TARTRATE 25 MG TABLET PO SCH (21:10)
[2017-06-14 22:57] LABS: APPEARANCE,URINE SLIGHTLY-CLOUDY; BILIRUBIN,URINE NEGATIVE (NEGATIVE); COLOR,URINE YELLOW; GLUCOSE, URINE 50 mg/dL (NEGATIVE); KETONES,URINE NEGATIVE (NEGATIVE); LEUKOCYTE ESTERASE,URINE MODERATE (NEGATIVE); NITRITE,URINE NEGATIVE (NEGATIVE); PROTEIN,URINE 100 mg/dL (NEGATIVE); UROBILINOGEN,URINE NEGATIVE mg/dL (<2.0)
[2017-06-15] MEDS ORDERED: ACETAMINOPHEN 325 MG TABLET PO STA (04:58)
[2017-06-15] MEDS: GABAPENTIN 300 MG CAPSULE PO SCH ×3 (05:08→22:05)
[2017-06-15 07:50] LABS: ABSOLUTE LYMPHOCYTES (AUTO) 0.8 10^3/uL (0.5-4.7); ABSOLUTE MONOCYTES (AUTO) 0.5 10^3/uL (0.1-1.4); ABSOLUTE NEUT (AUTO) 2.9 10^3/uL (1.7-8.2); BASOPHILS % (AUTO) 0.7 % (0-2); EOSINOPHILS % (AUTO) 0.2 % (0-6); HEMOGLOBIN 9.7 g/dL (12.0-15.5); LYMPHOCYTES % (AUTO) 18.1 % (13-45); MEAN CORPUSCULAR HEMOGLOBIN 33.4 pg (27.0-33.4); MEAN CORPUSCULAR HGB CONC 34.6 g/dL (32.0-36.0); MEAN CORPUSCULAR VOLUME 97 fl (80-97); MONOCYTES % (AUTO) 12.1 % (3-13); PLATELET COUNT 160 10^3/uL (150-450); RED CELL DISTRIBUTION WIDTH 12.8 % (11.5-14.0); SEGMENTED NEUTROPHILS % (AUTO) 68.9 % (42-78); TOTAL CELLS COUNTED % (AUTO) 100 %; WHITE BLOOD COUNT 4.2 10^3/uL (4.0-10.5)
[2017-06-15 08:14] LABS: ALANINE AMINOTRANSFERASE 33 U/L (9-52); ALBUMIN 3.3 g/dL (3.5-5.0); ALKALINE PHOSPHATASE 85 U/L (38-126); ANION GAP 8 (5-19); ASPARTATE AMINO TRANSFERASE 28 U/L (14-36); BILIRUBIN,DIRECT 0.1 mg/dL (0.0-0.4); BILIRUBIN,TOTAL 0.1 mg/dL (0.2-1.3); BLOOD UREA NITROGEN 14 mg/dL (7-20); CALCIUM 8.3 mg/dL (8.4-10.2); CARBON DIOXIDE 24 mmol/L (22-30); CHLORIDE 99 mmol/L (98-107); GLUCOSE 102 mg/dL (75-110); POTASSIUM 3.9 mmol/L (3.6-5.0); SODIUM 130.7 mmol/L (137-145); TOTAL PROTEIN 5.8 g/dL (6.3-8.2)
--- NOTE | 2017-06-15 08:34 | RADIOLOGY REPORT (SQ) ---
EXAM DESCRIPTION: CHEST PA/LAT COMPLETED DATE/TIME: 06/15/2017 8:13 am REASON FOR STUDY: suspected pneumonia COMPARISON: 03/17/2016 EXAM PARAMETERS: NUMBER OF VIEWS: two views TECHNIQUE: Digital Frontal and Lateral radiographic views of the chest acquired. RADIATION DOSE: NA LIMITATIONS: none FINDINGS: LUNGS AND PLEURA: No opacities, masses or pneumothorax. No pleural effusion. MEDIASTINUM AND HILAR STRUCTURES: No masses or contour abnormalities. HEART AND VASCULAR STRUCTURES: Heart normal size. No evidence for failure. BONES: No acute findings. HARDWARE: None in the chest. OTHER: No other significant finding. IMPRESSION: NO SIGNIFICANT RADIOGRAPHIC FINDING IN THE CHEST. TECHNICAL DOCUMENTATION: JOB ID: [id number] [email or web address]- All Rights Reserved
[2017-06-15] MEDS ORDERED: CEFTRIAXONE 1 GM/D5W RTU 1 GM/50 ML RTUPB IV SCH (10:00)
--- NOTE | 2017-06-15 11:08 | EKG REPORT ---
SEVERITY:- OTHERWISE NORMAL ECG - SINUS OR ECTOPIC ATRIAL RHYTHM : Confirmed by: Rosaura Loera 15-Jun-2017 11:07:38
[2017-06-15] MEDS: ENOXAPARIN SODIUM INJ 40 MG/0.4 ML DISP.SYRIN SUBCUT SCH (12:04)
[2017-06-15] MEDS: IPRATROPIUM/ALBUTEROL 0.5-2.5 MG/3 ML AMPUL NEB PRN ×2 (14:27→22:15)
[2017-06-15] MEDS: ACETAMINOPHEN 325 MG TABLET PO PRN ×2 (15:46→23:40)
[2017-06-15] MEDS ORDERED: CEFTRIAXONE SODIUM 1,000 MG in DEXTROSE 5%-WATER 100 ML IV SCH (18:00)
[2017-06-15] MEDS: AZITHROMYCIN 500 MG in DEXTROSE 5%-WATER 250 ML IV SCH (19:24)
--- NOTE | 2017-06-15 20:56 | PDOC PROGRESS REPORT ---
Subjective Progress Note for:: 06/15/17 Subjective:: Patient states she is doing better than when she came in. She is still with recurrent fevers. Still with cough, dry. No chest pain or significant shortness of breath, no diarrhea, denies dysuria or urinary frequency. Reason For Visit: SUSPECTED PNEUMONIA,HYPONATREMIA Physical Exam Vital Signs: Temp Pulse Resp BP Pulse Ox 103.0 F H 95 19 167/75 H 95 06/15/17 15:45 06/15/17 15:45 06/15/17 15:45 06/15/17 15:45 06/15/17 15:45 Intake & Output 06/14/17 06/15/17 06/16/17 06:59 06:59 06:59 Intake Total 200 1200 Output Total 250 Balance -50 1200 Weight 58.3 kg GEN: NAD, well-developed, well-nourished CV: RRR, NL S1S2 LUNGS: Right basilar crackles, decreased breath sounds left base; good air movement bilaterally ABDOMEN Soft, NT, +BS EXTERMITIES: No e/c/c NEURO: Alert, oriented 3, no focal weakness Results Laboratory Results: 06/15/17 07:27 06/15/17 07:27 06/14/17 06/14/17 06/15/17 22:15 22:35 07:27 WBC 4.2 RBC 2.90 L Hgb 9.7 L Hct 28.0 L MCV 97 MCH 33.4 MCHC 34.6 RDW 12.8 Plt Count 160 Seg Neutrophils % 68.9 Lymphocytes % 18.1 Monocytes % 12.1 Eosinophils % 0.2 Basophils % 0.7 Absolute Neutrophils 2.9 Absolute Lymphocytes 0.8 Absolute Monocytes 0.5 Absolute Eosinophils 0.0 Absolute Basophils 0.0 Sodium Potassium Chloride Carbon Dioxide Anion Gap BUN Creatinine Est GFR ( Amer) Est GFR (Non-Af Amer) Glucose Lactic Acid 1.9 Calcium Total Bilirubin AST ALT Alkaline Phosphatase Total Protein Albumin TSH Urine Color YELLOW Urine Appearance SLIGHTLY-CLOUDY Urine pH 5.0 Ur Specific [place] 1.010 Urine Protein 100 H Urine Glucose (UA) 50 H Urine Ketones NEGATIVE Urine Blood NEGATIVE Urine Nitrite NEGATIVE Ur Leukocyte Esterase MODERATE H Urine WBC (Auto) 54 Urine RBC (Auto) 2 06/15/17 06/15/17 07:27 07:27 WBC RBC Hgb Hct MCV MCH MCHC RDW Plt Count Seg Neutrophils % Lymphocytes % Monocytes % Eosinophils % Basophils % Absolute Neutrophils Absolute Lymphocytes Absolute Monocytes Absolute Eosinophils Absolute Basophils Sodium 130.7 L Potassium 3.9 Chloride 99 Carbon Dioxide 24 Anion Gap 8 BUN 14 Creatinine 0.72 Est GFR ( Amer) > 60 Est GFR (Non-Af Amer) > 60 Glucose 102 Lactic Acid Calcium 8.3 L Total Bilirubin 0.1 L AST 28 ALT 33 Alkaline Phosphatase 85 Total Protein 5.8 L Albumin 3.3 L TSH 0.64 Urine Color Urine Appearance Urine pH Ur Specific [place] Urine Protein Urine Glucose (UA) Urine Ketones Urine Blood Urine Nitrite Ur Leukocyte Esterase Urine WBC (Auto) Urine RBC (Auto) Impressions: Chest X-Ray 06/15/17 07:00 IMPRESSION: NO SIGNIFICANT RADIOGRAPHIC FINDING IN THE CHEST. Assessment & Plan - Diagnosis (1) Sepsis Is this a current diagnosis for this admission?: Yes Plan: This is suspected, but becoming less likely. Follow-up chest x-ray negative. Patient may very well have a viral syndrome. Will continue empiric Levaquin and Zithromax for now. Blood and urine cultures negative to date. Will continue to follow. (2) Pneumonia Qualifiers: Pneumonia type: due to unspecified organism Is this a current diagnosis for this admission?: Yes Plan: As in sepsis above. This is also suspected. (3) Hyponatremia Is this a current diagnosis for this admission?: Yes Plan: Improvement. Continue normal saline IV. Follow-up Chem-7 in a.m.
[2017-06-15] MEDS: NORMAL SALINE 1000 ML 1,000 ML IV PRN (22:05)
[2017-06-15] MEDS: METOPROLOL TARTRATE 25 MG TABLET PO SCH (23:38)
[2017-06-16] MEDS: IPRATROPIUM/ALBUTEROL 0.5-2.5 MG/3 ML AMPUL NEB PRN ×2 (03:07→11:57)
[2017-06-16 05:10] LABS: ABSOLUTE LYMPHOCYTES (AUTO) 1.2 10^3/uL (0.5-4.7); ABSOLUTE MONOCYTES (AUTO) 0.6 10^3/uL (0.1-1.4); ABSOLUTE NEUT (AUTO) 3.5 10^3/uL (1.7-8.2); BASOPHILS % (AUTO) 0.5 % (0-2); EOSINOPHILS % (AUTO) 0.2 % (0-6); HEMATOCRIT 28.5 % (36.0-47.0); HEMOGLOBIN 9.8 g/dL (12.0-15.5); LYMPHOCYTES % (AUTO) 21.7 % (13-45); MEAN CORPUSCULAR HEMOGLOBIN 33.4 pg (27.0-33.4); MEAN CORPUSCULAR HGB CONC 34.4 g/dL (32.0-36.0); MEAN CORPUSCULAR VOLUME 97 fl (80-97); MONOCYTES % (AUTO) 11.6 % (3-13); PLATELET COUNT 159 10^3/uL (150-450); RED BLOOD COUNT 2.94 10^6/uL (3.72-5.28); RED CELL DISTRIBUTION WIDTH 12.8 % (11.5-14.0); TOTAL CELLS COUNTED % (AUTO) 100 %; WHITE BLOOD COUNT 5.3 10^3/uL (4.0-10.5)
[2017-06-16 05:25] LABS: ANION GAP 7 (5-19); BLOOD UREA NITROGEN 11 mg/dL (7-20); CALCIUM 8.7 mg/dL (8.4-10.2); CARBON DIOXIDE 27 mmol/L (22-30); CHLORIDE 100 mmol/L (98-107); GLUCOSE 107 mg/dL (75-110); POTASSIUM 3.8 mmol/L (3.6-5.0); SODIUM 134.2 mmol/L (137-145)
[2017-06-16] MEDS: GABAPENTIN 300 MG CAPSULE PO SCH ×3 (06:50→21:26)
[2017-06-16] MEDS: ENOXAPARIN SODIUM INJ 40 MG/0.4 ML DISP.SYRIN SUBCUT SCH (10:34)
[2017-06-16] MEDS: CARBAMAZEPINE 200 MG TABLET PO SCH ×2 (11:15→17:20)
[2017-06-16] MEDS: CEFTRIAXONE SODIUM 1,000 MG in NORMAL SALINE 100 ML IV SCH (17:20)
[2017-06-16] MEDS: AZITHROMYCIN 500 MG in DEXTROSE 5%-WATER 250 ML IV SCH (17:21)
--- NOTE | 2017-06-16 18:10 | PDOC PROGRESS REPORT ---
Subjective Progress Note for:: 06/16/17 Subjective:: Continues to improve slowly. No f/c. at bedside. No more fevers. No n/v. Reason For Visit: SUSPECTED PNEUMONIA,HYPONATREMIA Physical Exam Vital Signs: Temp Pulse Resp BP Pulse Ox 99.9 F 96 18 144/74 H 96 06/16/17 15:35 06/16/17 15:35 06/16/17 15:35 06/16/17 15:35 06/16/17 15:35 Intake & Output 06/15/17 06/16/17 06/17/17 06:59 06:59 06:59 Intake Total 200 1200 2234 Output Total 250 Balance -50 1200 2234 Weight 58.3 kg 58.3 kg GEN: NAD, well-developed, well-nourished CV: RRR, NL S1S2 LUNGS: Right basilar crackles, decreased breath sounds left base; good air movement bilaterally ABDOMEN Soft, NT, +BS EXTERMITIES: No e/c/c NEURO: Alert, oriented 3, no focal weakness Results Laboratory Results: 06/16/17 04:49 06/16/17 04:49 06/16/17 06/16/17 04:49 04:49 WBC 5.3 RBC 2.94 L Hgb 9.8 L Hct 28.5 L MCV 97 MCH 33.4 MCHC 34.4 RDW 12.8 Plt Count 159 Seg Neutrophils % 66.0 Lymphocytes % 21.7 Monocytes % 11.6 Eosinophils % 0.2 Basophils % 0.5 Absolute Neutrophils 3.5 Absolute Lymphocytes 1.2 Absolute Monocytes 0.6 Absolute Eosinophils 0.0 Absolute Basophils 0.0 Sodium 134.2 L Potassium 3.8 Chloride 100 Carbon Dioxide 27 Anion Gap 7 BUN 11 Creatinine 0.70 Est GFR ( Amer) > 60 Est GFR (Non-Af Amer) > 60 Glucose 107 Calcium 8.7 Impressions: Chest X-Ray 06/15/17 07:00 IMPRESSION: NO SIGNIFICANT RADIOGRAPHIC FINDING IN THE CHEST. Assessment & Plan - Diagnosis (1) Sepsis Is this a current diagnosis for this admission?: Yes Plan: This is suspected, but now less likely. Follow-up chest x-ray was negative. Patient may very well have a viral syndrome. Will continue empiric Ceftriaxone and Zithromax for now. Blood and urine cultures negative to date. Will continue to follow. (2) Pneumonia Qualifiers: Pneumonia type: due to unspecified organism Is this a current diagnosis for this admission?: Yes Plan: As in sepsis above. This is also suspected. (3) Hyponatremia Is this a current diagnosis for this admission?: Yes Plan: Improvement. Continue normal saline IV. Follow-up Chem-7 in a.m.
[2017-06-16] MEDS: METOPROLOL TARTRATE 25 MG TABLET PO SCH (21:27)
[2017-06-17] MEDS: CARBAMAZEPINE 200 MG TABLET PO SCH ×5 (00:01→23:22)
[2017-06-17] MEDS: GABAPENTIN 300 MG CAPSULE PO SCH ×3 (05:55→21:02)
[2017-06-17] MEDS: NORMAL SALINE 1000 ML 1,000 ML IV PRN (05:56)
[2017-06-17 06:02] LABS: ABSOLUTE LYMPHOCYTES (AUTO) 0.9 10^3/uL (0.5-4.7); ABSOLUTE MONOCYTES (AUTO) 0.5 10^3/uL (0.1-1.4); BASOPHILS % (AUTO) 0.7 % (0-2); EOSINOPHILS % (AUTO) 0.9 % (0-6); HEMATOCRIT 29.3 % (36.0-47.0); HEMOGLOBIN 10.2 g/dL (12.0-15.5); LYMPHOCYTES % (AUTO) 26.4 % (13-45); MEAN CORPUSCULAR HEMOGLOBIN 33.3 pg (27.0-33.4); MEAN CORPUSCULAR HGB CONC 34.7 g/dL (32.0-36.0); MEAN CORPUSCULAR VOLUME 96 fl (80-97); MONOCYTES % (AUTO) 14.3 % (3-13); PLATELET COUNT 158 10^3/uL (150-450); RED BLOOD COUNT 3.05 10^6/uL (3.72-5.28); RED CELL DISTRIBUTION WIDTH 12.6 % (11.5-14.0); SEGMENTED NEUTROPHILS % (AUTO) 57.7 % (42-78); TOTAL CELLS COUNTED % (AUTO) 100 %; WHITE BLOOD COUNT 3.5 10^3/uL (4.0-10.5)
[2017-06-17 06:35] LABS: ANION GAP 8 (5-19); BLOOD UREA NITROGEN 9 mg/dL (7-20); CALCIUM 8.6 mg/dL (8.4-10.2); CARBON DIOXIDE 26 mmol/L (22-30); CHLORIDE 98 mmol/L (98-107); GLUCOSE 97 mg/dL (75-110); POTASSIUM 3.5 mmol/L (3.6-5.0)
[2017-06-17] MEDS: ENOXAPARIN SODIUM INJ 40 MG/0.4 ML DISP.SYRIN SUBCUT SCH (09:39)
[2017-06-17] MEDS: IPRATROPIUM/ALBUTEROL 0.5-2.5 MG/3 ML AMPUL NEB PRN ×2 (10:40→21:33)
[2017-06-17] MEDS ORDERED: LOSARTAN POTASSIUM 50 MG TABLET PO ONE (12:30)
[2017-06-17] MEDS: AZITHROMYCIN 500 MG in DEXTROSE 5%-WATER 250 ML IV SCH (17:09)
[2017-06-17] MEDS: CEFTRIAXONE SODIUM 1,000 MG in NORMAL SALINE 100 ML IV SCH (17:09)
--- NOTE | 2017-06-17 17:27 | PDOC PROGRESS REPORT ---
Subjective Progress Note for:: 06/17/17 Subjective:: Continues to improve. No more fevers. No n/v. Blood pressure was running high and will medication was not resumed. Tolerating some p.o.'s, will decrease IV fluid. Reason For Visit: SUSPECTED PNEUMONIA,HYPONATREMIA Physical Exam Vital Signs: Temp Pulse Resp BP Pulse Ox 98.6 F 82 16 167/84 H 94 06/17/17 15:45 06/17/17 15:45 06/17/17 15:45 06/17/17 15:45 06/17/17 15:45 Intake & Output 06/16/17 06/17/17 06/18/17 06:59 06:59 06:59 Intake Total 1200 2634 354 Balance 1200 2634 354 Weight 58.3 kg 58.4 kg GEN: NAD, well-developed, well-nourished CV: RRR, NL S1S2 LUNGS: Few basilar crackles, good air movement ABDOMEN Soft, NT, +BS EXTERMITIES: No e/c/c NEURO: Alert, oriented to name and place, no focal weakness Results Laboratory Results: 06/17/17 05:14 06/17/17 05:14 06/17/17 06/17/17 05:14 05:14 WBC 3.5 L RBC 3.05 L Hgb 10.2 L Hct 29.3 L MCV 96 MCH 33.3 MCHC 34.7 RDW 12.6 Plt Count 158 Seg Neutrophils % 57.7 Lymphocytes % 26.4 Monocytes % 14.3 H Eosinophils % 0.9 Basophils % 0.7 Absolute Neutrophils 2.0 Absolute Lymphocytes 0.9 Absolute Monocytes 0.5 Absolute Eosinophils 0.0 Absolute Basophils 0.0 Sodium 132.0 L Potassium 3.5 L Chloride 98 Carbon Dioxide 26 Anion Gap 8 BUN 9 Creatinine 0.64 Est GFR ( Amer) > 60 Est GFR (Non-Af Amer) > 60 Glucose 97 Calcium 8.6 Impressions: Chest X-Ray 06/15/17 07:00 IMPRESSION: NO SIGNIFICANT RADIOGRAPHIC FINDING IN THE CHEST. Assessment & Plan - Diagnosis (1) Sepsis Is this a current diagnosis for this admission?: Yes Plan: This is suspected, but now less likely. Follow-up chest x-ray was negative. Patient may very well have a viral illness. Will continue empiric Ceftriaxone and Zithromax for now. Blood cultures were negative after 48 hours. (2) Pneumonia Qualifiers: Pneumonia type: due to unspecified organism Is this a current diagnosis for this admission?: Yes Plan: As in sepsis above. This is also suspected. (3) Hyponatremia Is this a current diagnosis for this admission?: Yes Plan: Improved. Continue normal saline IV, but I have decreased dose. Potassium borderline normal. Will treat with KCl follow-up Chem-7 in a.m. (4) Fever Plan: Improved, continue to monitor. Supportive care. (5) Viral syndrome Is this a current diagnosis for this admission?: Yes Plan: Suspect, continue supportive care.
[2017-06-17] MEDS ORDERED: POTASSIUM CHLORIDE 20 MEQ/15 ML UDCUP PO ONE (18:00)
[2017-06-17] MEDS: METOPROLOL TARTRATE 25 MG TABLET PO SCH (21:02)
[2017-06-17] MEDS ORDERED: NORMAL SALINE 1000 ML 1,000 ML IV PRN (22:44)
[2017-06-18] MEDS: CARBAMAZEPINE 200 MG TABLET PO SCH ×2 (05:14→11:09)
[2017-06-18] MEDS: GABAPENTIN 300 MG CAPSULE PO SCH (05:15)
[2017-06-18 05:27] LABS: ABSOLUTE LYMPHOCYTES (AUTO) 1.1 10^3/uL (0.5-4.7); ABSOLUTE MONOCYTES (AUTO) 0.4 10^3/uL (0.1-1.4); ABSOLUTE NEUT (AUTO) 2.3 10^3/uL (1.7-8.2); BASOPHILS % (AUTO) 0.8 % (0-2); EOSINOPHILS % (AUTO) 1.1 % (0-6); HEMATOCRIT 28.7 % (36.0-47.0); HEMOGLOBIN 9.9 g/dL (12.0-15.5); LYMPHOCYTES % (AUTO) 28.9 % (13-45); MEAN CORPUSCULAR HEMOGLOBIN 33.1 pg (27.0-33.4); MEAN CORPUSCULAR HGB CONC 34.6 g/dL (32.0-36.0); MEAN CORPUSCULAR VOLUME 96 fl (80-97); MONOCYTES % (AUTO) 10.3 % (3-13); PLATELET COUNT 147 10^3/uL (150-450); RED BLOOD COUNT 2.99 10^6/uL (3.72-5.28); RED CELL DISTRIBUTION WIDTH 12.9 % (11.5-14.0); SEGMENTED NEUTROPHILS % (AUTO) 58.9 % (42-78); TOTAL CELLS COUNTED % (AUTO) 100 %; WHITE BLOOD COUNT 3.9 10^3/uL (4.0-10.5)
[2017-06-18 05:43] LABS: ANION GAP 9 (5-19); BLOOD UREA NITROGEN 11 mg/dL (7-20); CALCIUM 8.4 mg/dL (8.4-10.2); CARBON DIOXIDE 28 mmol/L (22-30); CHLORIDE 98 mmol/L (98-107); GLUCOSE 100 mg/dL (75-110); POTASSIUM 3.3 mmol/L (3.6-5.0)
[2017-06-18] MEDS ORDERED: LEVOTHYROXINE SODIUM 0.05 MG TABLET PO SCH (06:00)
[2017-06-18 08:03] VITALS: BP 150/66
[2017-06-18] MEDS: ENOXAPARIN SODIUM INJ 40 MG/0.4 ML DISP.SYRIN SUBCUT SCH (09:35)
[2017-06-18] MEDS ORDERED: LOSARTAN POTASSIUM 50 MG TABLET PO SCH (10:00)
[2017-06-18] MEDS ORDERED: POTASSIUM CHLORIDE 20 MEQ/15 ML UDCUP PO ONE (10:41)
[2017-06-18] MEDS: IPRATROPIUM/ALBUTEROL 0.5-2.5 MG/3 ML AMPUL NEB PRN (10:42)
--- NOTE | 2017-07-30 11:08 | PDOC DISCHARGE SUMMARY ---
General - Admit/Disc Date/PCP Admission Date/Primary Care Provider: 06/14/17 17:39 BENOIT DUPONT MD Discharge Date: 06/18/17 - Discharge Diagnosis (1) Sepsis Is this a current diagnosis for this admission?: Yes (2) Pneumonia Is this a current diagnosis for this admission?: Yes (3) Hyponatremia Is this a current diagnosis for this admission?: Yes (5) Viral syndrome Is this a current diagnosis for this admission?: Yes - Additional Information Resuscitation Status: Full Code Discharge Diet: Cardiac Discharge Activity: Activity As Tolerated Prescriptions: Albuterol Sulfate [Proair HFA] 2 puff IH Q4 PRN #1 inhaler PRN Reason: Azithromycin 500 mg PO DAILY #3 tablet Prednisone 20 mg PO DAILY #5 tablet Home Medications: Benzonatate [Tessalon Perles 100 mg Capsule] 200 mg PO Q8HP PRN 06/14/17 Carbamazepine [Tegretol 200 mg Tablet] 200 mg PO Q6 06/14/17 Docusate Sodium [Colace 100 mg Capsule] 100 mg PO BIDP PRN 06/14/17 Ezetimibe [Zetia 10 mg Tablet] 10 mg PO DAILY 06/14/17 Gabapentin [Neurontin 300 mg Capsule] 300 mg PO Q8 06/14/17 Ketoconazole [Nizoral 2% Shampoo 120 ml Bottle] 1 applic TP Q7D 06/14/17 Levothyroxine Sodium [Synthroid] 50 mcg PO QAM 06/14/17 Losartan Potassium [Cozaar 100 mg Tablet] 100 mg PO DAILY 06/14/17 Metoprolol Tartrate [Lopressor 25 mg Tablet] 25 mg PO QPM 06/14/17 Rosuvastatin Calcium [Crestor 20 mg Tablet] 20 mg PO DAILY 06/14/17 Acetaminophen [Tylenol 325 mg Tablet] 650 mg PO Q4HP PRN tablet 06/18/17 Albuterol Sulfate [Proair HFA] 2 puff IH Q4 PRN #1 inhaler 06/18/17 Azithromycin 500 mg PO DAILY #3 tablet 06/18/17 Prednisone 20 mg PO DAILY #5 tablet 06/18/17 History of Present Illness History of Present Illness: Patient presented as in HPI by admission below: "CHARLES LEBRON is a 81 year old female who presented with shortness of breath for 1-2 days. She reports cough, that is intermittently productive. Reports weakness and myalgia and some dizziness. No chest pain or palpitations. She reports fever. She reports getting the flu shot. No clear sick contacts. She presented to the ED where evaluation significant for hyponatremia and abnormal lung exam, although chest x-ray and white blood cell is currently appear normal. Patient also has an abnormal lactic acid level. She was suspected of having pneumonia and possible sepsis and received a dose of Rocephin and Zithromax as well as IV fluid bolus. She was referred to the hospitalist for admission. She denies orthopnea or PND or lower extremity swelling." Hospital Course Hospital Course: Patient was admitted to the hospitalist service and managed as follows: (3) Hyponatremia Is this a current diagnosis for this admission?: Yes Plan: Improved. Likely secondary to dehydration and was treated with normal saline IV. (4) Fever Plan: Improved, likely secondary to viral illness. (5) Viral syndrome Is this a current diagnosis for this admission?: Yes Plan: Suspect cause of symptoms, treated with supportive care. (1) Sepsis Is this a current diagnosis for this admission?: Yes Plan: This was suspected, but now less likely. Follow-up chest x-ray was negative. Patient may very well have had a viral illness. In any case, was managed with empiric Ceftriaxone and Zithromax. Blood cultures were negative after 72 hours. (2) Pneumonia Qualifiers: Pneumonia type: due to unspecified organism Is this a current diagnosis for this admission?: Yes Plan: Was suspected by admission but now less likely as in sepsis above. Physical Exam Vital Signs: Temp Pulse Resp BP Pulse Ox 98.0 F 75 20 150/66 H 96 06/18/17 10:53 06/18/17 10:53 06/18/17 10:53 06/18/17 10:53 06/18/17 10:53 GEN: NAD, well-developed, well-nourished CV: RRR, NL S1S2 LUNGS: CTA bilaterally, good air movement ABDOMEN Soft, NT, +BS EXTERMITIES: No e/c/c NEURO: Alert, oriented to name and place, no focal weakness Results Laboratory Results: 06/18/17 05:00 06/18/17 05:00 Impressions: Chest X-Ray 06/15/17 07:00 IMPRESSION: NO SIGNIFICANT RADIOGRAPHIC FINDING IN THE CHEST. Qualifiers - * PATEINT BEING DISCHARGED WITH ANY OF THE FOLLOWING DIAGNOSIS?: No Plan Discharge Plan: Patient discharged in stable condition. F/u with pcp within 1 week. Time Spent: Greater than 30 Minutes
== END 2017-06-18 11:38 | disposition home or self-care (01) | DRG 871 ==
LOC: ER 15:28 → EH 17:39 → 4W 19:57
PROVIDERS: ADMIT Family Medicine; ATTEND Family Medicine
DX: A41.89 Other specified sepsis (principal); J18.9 Pneumonia, unspecified organism; E87.1 Hypo-osmolality and hyponatremia; I48.91 Unspecified atrial fibrillation; E78.00 Pure hypercholesterolemia, unspecified; I10 Essential (primary) hypertension; E03.9 Hypothyroidism, unspecified; B34.9 Viral infection, unspecified
CPT/HCPCS: 36415; 71045; 71046; 80048; 80053; 81001; 83605; 84443; 84484; 85025; 87040; 87804; 93005; 93010; 94640; 96360; 99285; J0456; J0696; J1650; J7030; J7060; J7620

== ENCOUNTER → 2017-07-19 | Outpatient (CLI) | payer MEDICARE ==
[2017-07-19 10:42] LABS: ANION GAP 7 (5-19); BLOOD UREA NITROGEN 17 mg/dL (7-20); CALCIUM 9.6 mg/dL (8.4-10.2); CARBON DIOXIDE 29 mmol/L (22-30); CHLORIDE 94 mmol/L (98-107); CHOLESTEROL 175.99 mg/dL (0-200); GLUCOSE 94 mg/dL (75-110); POTASSIUM 5.2 mmol/L (3.6-5.0); SODIUM 129.5 mmol/L (137-145); TRIGLYCERIDES 96 mg/dL (<150)
[2017-07-19 10:52] LABS: DIRECT LDL 61 mg/dL (<100)
== END ==
LOC: OD 09:22
PROVIDERS: ATTEND Internal Medicine Cardiovascular Disease
DX: E78.00 Pure hypercholesterolemia, unspecified (principal); I10 Essential (primary) hypertension; E87.1 Hypo-osmolality and hyponatremia; E87.5 Hyperkalemia
CPT/HCPCS: 36415; 80048; 80061

== ENCOUNTER → 2017-12-25 | Outpatient (CLI) | payer MEDICARE ==
[2017-12-25 12:18] LABS: HEMATOCRIT 36.5 % (36.0-47.0); HEMOGLOBIN 12.4 g/dL (12.0-15.5); MEAN CORPUSCULAR HEMOGLOBIN 32.3 pg (27.0-33.4); MEAN CORPUSCULAR VOLUME 95 fl (80-97); PLATELET COUNT 243 10^3/uL (150-450); RED BLOOD COUNT 3.84 10^6/uL (3.72-5.28); RED CELL DISTRIBUTION WIDTH 13.1 % (11.5-14.0); WHITE BLOOD COUNT 4.8 10^3/uL (4.0-10.5)
[2017-12-25 12:49] LABS: ALANINE AMINOTRANSFERASE 33 U/L (9-52); ALBUMIN 4.5 g/dL (3.5-5.0); ALKALINE PHOSPHATASE 143 U/L (38-126); ANION GAP 15 (5-19); ASPARTATE AMINO TRANSFERASE 31 U/L (14-36); BILIRUBIN,DIRECT 0.4 mg/dL (0.0-0.4); BILIRUBIN,TOTAL 0.4 mg/dL (0.2-1.3); BLOOD UREA NITROGEN 18 mg/dL (7-20); CALCIUM 9.5 mg/dL (8.4-10.2); CARBON DIOXIDE 27 mmol/L (22-30); CHLORIDE 89 mmol/L (98-107); CHOLESTEROL 175.83 mg/dL (0-200); GLUCOSE 101 mg/dL (75-110); POTASSIUM 4.7 mmol/L (3.6-5.0); TOTAL PROTEIN 8.2 g/dL (6.3-8.2); TRIGLYCERIDES 103 mg/dL (<150)
[2017-12-25 13:00] LABS: DIRECT LDL 56 mg/dL (<100)
[2017-12-25 13:06] LABS: ANION GAP 15 (5-19); BLOOD UREA NITROGEN 18 mg/dL (7-20); CALCIUM 9.5 mg/dL (8.4-10.2); CARBON DIOXIDE 27 mmol/L (22-30); CHLORIDE 89 mmol/L (98-107); CHOLESTEROL 175.83 mg/dL (0-200); DIRECT LDL 56 mg/dL (<100); GLUCOSE 101 mg/dL (75-110); POTASSIUM 4.7 mmol/L (3.6-5.0); TRIGLYCERIDES 103 mg/dL (<150)
== END ==
LOC: OD 10:42
PROVIDERS: ATTEND Family Medicine
DX: E03.9 Hypothyroidism, unspecified (principal); I10 Essential (primary) hypertension; E87.6 Hypokalemia; Z79.899 Other long term (current) drug therapy; E78.00 Pure hypercholesterolemia, unspecified; E87.5 Hyperkalemia; R22.40 Localized swelling, mass and lump, unspecified lower limb; R06.02 Shortness of breath; R07.89 Other chest pain
CPT/HCPCS: 36415; 80048; 80061; 80076; 83036; 83880; 84436; 84443; 85027

== ENCOUNTER → 2018-02-19 | Outpatient (CLI) | payer MEDICARE ==
[2018-02-19 10:59] LABS: ANION GAP 11 (5-19); BLOOD UREA NITROGEN 20 mg/dL (7-20); CALCIUM 9.4 mg/dL (8.4-10.2); CARBON DIOXIDE 26 mmol/L (22-30); CHLORIDE 95 mmol/L (98-107); GLUCOSE 95 mg/dL (75-110); SODIUM 131.5 mmol/L (137-145)
== END ==
LOC: OD 09:15
PROVIDERS: ATTEND Family Medicine
DX: G50.0 Trigeminal neuralgia (principal); E87.1 Hypo-osmolality and hyponatremia; R55 Syncope and collapse; Z79.899 Other long term (current) drug therapy
CPT/HCPCS: 36415; 80048; 80156

== ENCOUNTER → 2018-04-25 | Outpatient (CLI) | payer MEDICARE ==
[2018-04-25 11:12] LABS: ALANINE AMINOTRANSFERASE 26 U/L (9-52); ALBUMIN 4.2 g/dL (3.5-5.0); ALKALINE PHOSPHATASE 123 U/L (38-126); ASPARTATE AMINO TRANSFERASE 33 U/L (14-36); BILIRUBIN,DIRECT 0.3 mg/dL (0.0-0.4); BILIRUBIN,TOTAL 0.3 mg/dL (0.2-1.3); TOTAL PROTEIN 7.5 g/dL (6.3-8.2)
== END ==
LOC: OD 08:35
PROVIDERS: ATTEND Internal Medicine Cardiovascular Disease
DX: I10 Essential (primary) hypertension (principal); R94.5 Abnormal results of liver function studies
CPT/HCPCS: 36415; 80076

== ENCOUNTER → 2018-06-26 | Outpatient (CLI) | payer MEDICARE ==
--- NOTE | 2018-06-26 13:59 | WOMENS IMAGING REPORT ---
EXAM DESCRIPTION: 3D SCREENING MAMMO BILAT COMPLETED DATE/TIME: 06/26/2018 1:30 pm REASON FOR STUDY: Z12.31 ENCOUNTER FOR SCREENING MAMMOGRAM FOR MALIGNANT NEOPLASM OF BREAST Z12.31 ENCNTR SCREEN MAMMOGRAM FOR MALIGNANT NEOPLASM OF LACHELLE COMPARISON: 2012- 2017 TECHNIQUE: Standard craniocaudal and mediolateral oblique views of each breast recorded using digita l acquisition and breast tomosynthesis. LIMITATIONS: None. FINDINGS: Findings present which are benign by mammographic criteria. No suspicious masses, calcifi cations or architectural distortion. Pertinent benign findings: Stable calcifications. Read with the assistance of CAD. .[facility] - R2 Cenova Version 1.3 .[facility] - R2 Cenova Version 2.1 .[facility] - R2 Cenova Version 2.4 .[facility] [place] - R2 Cenova Version 2.4 .[facility] - R2 [employer] Specialist Version 9.2 Benign mammographic findings may include one or more of the following: Smooth masses, popcorn/rim/co arse calcifications, asymmetries, post-procedure changes, and lesions with long-standing stability. IMPRESSION: BENIGN MAMMOGRAPHIC FINDINGS. BIRADS 2 BREAST DENSITY: b. There are scattered areas of fibroglandular density. BIRAD: 2 BENIGN FINDING(S) RECOMMENDATION: RECOMMENDATION: ROUTINE SCREENING COMMENT: The patient has been notified of the results by letter per [place] requirements. Additional no tification policies are in place for contacting patient with suspicious or incomplete findings. Quality ID #[id number]: The [employer] recommends an annual screening mammogram for women aged 40 years or over. This facility utilizes a reminder system to ensure that all patients receive reminder letters, and/or direct phone calls for appointments. This includes reminders for routine scr eening mammograms, diagnostic mammograms, or other Breast Imaging Interventions when appropriate. Th is patient will be placed in the appropriate reminder system. The [employer] (ACR) has developed recommendations for screening MRI of the breast s in certain patient populations, to be used in conjunction with mammography. Breast MRI surveillanc e may be appropriate for women with more than 20% lifetime risk of developing breast cancer as deter mined by genetic testing, significant family history of the disease, or history of mantle radiation f or Hodgkins Disease. ACR Practice Guidelines 2008. DBT Technology DBT is a type of tomographic mammography. With conventional mammography, overlapping breast tissue ma y make lesions difficult to detect, even with good compression. DBT uses an x-ray tube that rotates a round the breast, taking images at different angles. These images are then combined to create thin sl ices of the breast that the radiologist can view as a 3D reconstruction. The [employer] unit can perform full-field digital mammograms (2D imaging); or DBT (3D imaging); or both, in a combination mode that quickly performs both the mammogram and the tomosynthesis scan while the breast is still compressed. PQRS 6045F: Fluoroscopic imaging is not utilized for breast tomosynthesis. TECHNICAL DOCUMENTATION: FINDING NUMBER: (1) ASSESSMENT: (1) JOB ID: [id number] [employer]- All Rights Reserved Reading location - IP/workstation name: [email or web address]
== END ==
LOC: WI 13:05
PROVIDERS: ATTEND Family Medicine
DX: Z12.31 Encounter for screening mammogram for malignant neoplasm of breast (principal)
CPT/HCPCS: 77063; 77067

== ENCOUNTER → 2018-07-27 | Outpatient (CLI) | payer MEDICARE ==
[2018-07-27 11:39] LABS: HEMATOCRIT 32.9 % (36.0-47.0); HEMOGLOBIN 11.5 g/dL (12.0-15.5); MEAN CORPUSCULAR HEMOGLOBIN 33.6 pg (27.0-33.4); MEAN CORPUSCULAR HGB CONC 35.1 g/dL (32.0-36.0); MEAN CORPUSCULAR VOLUME 96 fl (80-97); PLATELET COUNT 214 10^3/uL (150-450); RED BLOOD COUNT 3.44 10^6/uL (3.72-5.28); RED CELL DISTRIBUTION WIDTH 12.7 % (11.5-14.0); WHITE BLOOD COUNT 4.5 10^3/uL (4.0-10.5)
[2018-07-27 11:52] LABS: BLOOD UREA NITROGEN 18 mg/dL (7-20); CALCIUM 9.4 mg/dL (8.4-10.2); GLUCOSE 97 mg/dL (75-110)
[2018-07-27 11:53] LABS: ALANINE AMINOTRANSFERASE 26 U/L (9-52); ALBUMIN 3.8 g/dL (3.5-5.0); ALKALINE PHOSPHATASE 120 U/L (38-126); ANION GAP 8 (5-19); ASPARTATE AMINO TRANSFERASE 25 U/L (14-36); BILIRUBIN,DIRECT 0.3 mg/dL (0.0-0.4); BILIRUBIN,TOTAL 0.4 mg/dL (0.2-1.3); CARBON DIOXIDE 28 mmol/L (22-30); CHLORIDE 95 mmol/L (98-107); CHOLESTEROL 163.07 mg/dL (0-200); TOTAL PROTEIN 6.9 g/dL (6.3-8.2); TRIGLYCERIDES 87 mg/dL (<150)
[2018-07-27 12:03] LABS: DIRECT LDL 62 mg/dL (<100)
== END ==
LOC: OD 10:33
PROVIDERS: ATTEND Internal Medicine Cardiovascular Disease
DX: R00.2 Palpitations (principal); E78.00 Pure hypercholesterolemia, unspecified; Z79.899 Other long term (current) drug therapy
CPT/HCPCS: 36415; 80048; 80061; 80076; 85027

== ENCOUNTER → 2018-08-16 | Outpatient (CLI) | payer MEDICARE ==
[2018-08-16 10:37] LABS: ABSOLUTE RETICS # 0.042 10^6/uL (0.028-0.122); HEMATOCRIT 35.1 % (36.0-47.0); HEMOGLOBIN 11.8 g/dL (12.0-15.5); MEAN CORPUSCULAR HEMOGLOBIN 32.5 pg (27.0-33.4); MEAN CORPUSCULAR HGB CONC 33.7 g/dL (32.0-36.0); MEAN CORPUSCULAR VOLUME 96 fl (80-97); PLATELET COUNT 222 10^3/uL (150-450); RED BLOOD COUNT 3.65 10^6/uL (3.72-5.28); RED CELL DISTRIBUTION WIDTH 12.9 % (11.5-14.0); RETICULOCYTE COUNT (AUTO) 1.14 % (0.66-2.85); WHITE BLOOD COUNT 3.8 10^3/uL (4.0-10.5)
[2018-08-16 11:06] LABS: ANION GAP 11 (5-19); BLOOD UREA NITROGEN 21 mg/dL (7-20); CALCIUM 9.6 mg/dL (8.4-10.2); CARBON DIOXIDE 28 mmol/L (22-30); CHLORIDE 94 mmol/L (98-107); GLUCOSE 94 mg/dL (75-110); POTASSIUM 4.9 mmol/L (3.6-5.0)
== END ==
LOC: OD 09:36
PROVIDERS: ATTEND Internal Medicine Cardiovascular Disease
DX: D64.9 Anemia, unspecified (principal); E87.5 Hyperkalemia
CPT/HCPCS: 36415; 80048; 85027; 85045

== ENCOUNTER → 2018-09-28 | Outpatient (CLI) | payer MEDICARE ==
[2018-09-28 10:59] LABS: HEMATOCRIT 34.4 % (36.0-47.0); HEMOGLOBIN 11.6 g/dL (12.0-15.5); MEAN CORPUSCULAR HEMOGLOBIN 32.5 pg (27.0-33.4); MEAN CORPUSCULAR HGB CONC 33.8 g/dL (32.0-36.0); MEAN CORPUSCULAR VOLUME 96 fl (80-97); PLATELET COUNT 226 10^3/uL (150-450); RED BLOOD COUNT 3.58 10^6/uL (3.72-5.28); RED CELL DISTRIBUTION WIDTH 13.5 % (11.5-14.0); WHITE BLOOD COUNT 3.8 10^3/uL (4.0-10.5)
== END ==
LOC: OD 09:52
PROVIDERS: ATTEND Physician Assistant
DX: D64.9 Anemia, unspecified (principal)
CPT/HCPCS: 36415; 85027

== ENCOUNTER → 2018-11-02 | Outpatient (CLI) | payer MEDICARE ==
[2018-11-02 09:49] LABS: HEMATOCRIT 35.1 % (36.0-47.0); HEMOGLOBIN 11.8 g/dL (12.0-15.5); MEAN CORPUSCULAR HEMOGLOBIN 32.3 pg (27.0-33.4); MEAN CORPUSCULAR HGB CONC 33.7 g/dL (32.0-36.0); MEAN CORPUSCULAR VOLUME 96 fl (80-97); PLATELET COUNT 201 10^3/uL (150-450); RED BLOOD COUNT 3.65 10^6/uL (3.72-5.28); RED CELL DISTRIBUTION WIDTH 13.4 % (11.5-14.0); WHITE BLOOD COUNT 3.6 10^3/uL (4.0-10.5)
[2018-11-02 10:00] LABS: APPEARANCE,URINE CLEAR; BILIRUBIN,URINE NEGATIVE (NEGATIVE); COLOR,URINE STRAW; GLUCOSE, URINE NEGATIVE (NEGATIVE); KETONES,URINE NEGATIVE (NEGATIVE); PROTEIN,URINE 30 mg/dL (NEGATIVE); URINE SPECIFIC GRAVITY 1.013; UROBILINOGEN,URINE NEGATIVE mg/dL (<2.0)
[2018-11-02 10:01] LABS: LEUKOCYTE ESTERASE,URINE NEGATIVE (NEGATIVE); NITRITE,URINE NEGATIVE (NEGATIVE)
[2018-11-02 10:10] LABS: IRON(TIBC) 103.3 ug/dL (37-170)
== END ==
LOC: OD 08:49
PROVIDERS: ATTEND Internal Medicine Cardiovascular Disease
DX: D64.9 Anemia, unspecified (principal)
CPT/HCPCS: 36415; 81001; 82272; 82728; 83540; 83550; 84466; 85027

== ENCOUNTER 2019-02-16 13:17 | Emergency (ER) | payer MEDICARE ==
[2019-02-16] MEDS ORDERED: ONDANSETRON HCL INJ/PF 4 MG/2 ML SDV IV ONE (14:17)
[2019-02-16] MEDS ORDERED: NORMAL SALINE 1000 ML 1,000 ML IV ONE ×2 (14:17→15:56)
[2019-02-16 14:25] LABS: ABSOLUTE EOSINOPHILS # (AUTO) 0.1 10^3/uL (0.0-0.6); ABSOLUTE LYMPHOCYTES (AUTO) 1.5 10^3/uL (0.5-4.7); ABSOLUTE MONOCYTES (AUTO) 0.3 10^3/uL (0.1-1.4); ABSOLUTE NEUT (AUTO) 6.7 10^3/uL (1.7-8.2); BASOPHILS % (AUTO) 0.5 % (0-2); EOSINOPHILS % (AUTO) 0.8 % (0-6); HEMATOCRIT 37.7 % (36.0-47.0); HEMOGLOBIN 12.6 g/dL (12.0-15.5); MEAN CORPUSCULAR HEMOGLOBIN 32.3 pg (27.0-33.4); MEAN CORPUSCULAR HGB CONC 33.6 g/dL (32.0-36.0); MEAN CORPUSCULAR VOLUME 96 fl (80-97); MONOCYTES % (AUTO) 3.5 % (3-13); RED BLOOD COUNT 3.91 10^6/uL (3.72-5.28); RED CELL DISTRIBUTION WIDTH 13.9 % (11.5-14.0); SEGMENTED NEUTROPHILS % (AUTO) 78.2 % (42-78); TOTAL CELLS COUNTED % (AUTO) 100 %; WHITE BLOOD COUNT 8.6 10^3/uL (4.0-10.5)
--- NOTE | 2019-02-16 14:27 | ER Document Report ---
ED General - General Chief Complaint: Nausea/Vomiting Stated Complaint: NAUSEA,VOMITING Time Seen by Provider: 02/16/19 14:13 TRAVEL OUTSIDE OF THE [place] IN LAST 30 DAYS: No - HPI Notes: Patient is an 83-year-old female with a history of dementia, paroxysmal atrial Fibrillation (on baby asa), Hyperlipidema, Hypertension who presents with complaining of nausea and vomiting after she ate around 1130 this morning. states that she is otherwise been well and just finished a course of steroids for a rash yesterday. She has been sleeping well with normal urinations/BM's. She has not been complaining of any pain or discomfort. Denies any headache, fever, neck pain, changes in vision/sp eech/mentation/hearing, URI, sore throat, chest pain, palpitations, syncope, cough, shortness of breath, wheeze, dyspnea, abdominal pain, diarrhea, urinary retention, dysuria, hematuria, back pain, or rash. - Related Data Allergies/Adverse Reactions: lisinopril Adverse Reaction (Verified 06/14/17 16:56) cough Home Medications: Namenda. Carbamzapine. Gabapentin. Losartan. Metoprolol. Rosuvastatin. Ezetimibe. Lasix. Colace. Flonase. Cozaae. Lofibra. Microzide. Atorvastatin Past Medical History - Social History Smoking Status: Unknown if Ever Smoked Family History: Reviewed & Not Pertinent Patient has suicidal ideation: No Patient has homicidal ideation: No - Past Medical History Cardiac Medical History: Reports: Hx Atrial Fibrillation, Hx Hypercholesterolemia, Hx Hypertension Denies: Hx Congestive Heart Failure, Hx DVT, Hx Pulmonary Embolism Pulmonary Medical History: Denies: Hx Asthma, Hx COPD Neurological Medical History: Reports: Hx Seizures Endocrine Medical History: Reports: Hx Hypothyroidism. Denies: Hx Diabetes Mellitus Type 1, Hx Diabetes Mellitus Type 2, Hx Hyperthyroidism Renal/ Medical History: Denies: Hx Peritoneal Dialysis GI Medical History: Denies: Hx Cirrhosis, Hx Gastroesophageal Reflux Disease, Hx Hepatitis Musculoskeletal Medical History: Reports Hx Arthritis Psychiatric Medical History: Denies: Hx Depression Infectious Medical History: Denies: Hx Hepatitis Past Surgical History: Reports: Hx Cholecystectomy, Hx Hysterectomy, Hx Orthopedic Surgery - bilateral knee replacement - Immunizations Immunizations up to date: Yes Hx Diphtheria, Pertussis, Tetanus Vaccination: Yes Hx Pneumococcal Vaccination: 02/11/14 Review of Systems - Review of Systems -: Yes All other systems reviewed and negative Physical Exam - Vital signs Vitals: Temp Pulse Resp BP Pulse Ox 98 F 72 12 132/49 H 96 02/16/19 13:30 02/16/19 13:30 02/16/19 13:30 02/16/19 13:30 02/16/19 13:30 - Notes Notes: PHYSICAL EXAMINATION: GENERAL: no acute distress. A&O. Answers questions appropriately. Baseline per spouse. HEAD: Atraumatic, normocephalic. EYES: Pupils equal round and reactive to light, extraocular movements intact, sclera anicteric, conjunctiva are normal. ENT: Nares patent and without discharge. oropharynx clear without exudates. No tonsilar hypertrophy or erythema. Moist mucous membranes. NECK: Normal range of motion, supple without lymphadenopathy LUNGS: Breath sounds clear to auscultation bilaterally and equal. No wheezes rales or rhonchi. HEART: Regular rate and rhythm without murmurs, rubs, gallops. ABDOMEN: Soft, nontender, nondistended abdomen. No guarding, no rebound. Normal bowel sounds present. No CVA tenderness bilaterally. Marley neg. No tenderness at [place]. Musculoskeletal: FROM to passive/active. Strength 5+/5. Extremities: No cyanosis, clubbing, or edema b/l. Peripheral pulses 2+. Capillary refill less than 3 seconds. NEUROLOGICAL: Cranial nerves grossly intact. Normal speech, normal gait. PSYCH: Normal mood, normal affect. SKIN: Warm, Dry, normal turgor, no rashes or lesions noted. Course - Re-evaluation Re-evalutation: 02/16/19 18:28 Patient is an afebrile, well-hydrated, 83-year-old female who presents to the emergency department with nausea and vomiting, since resolved. She was also found to have red blood in her stool while here in the emergency department. It was somewhat mixed with the brown stool otherwise. Vitals are currently accepta ble without significant tachycardia, tachypnea, or hypoxia. Pt's abd soft and non-tender throughout. Patient is nontoxic-appearing and is tolerating p.o. without difficulty. She has not had any episodes of emesis throughout her stay. Patient was given fluids as well as nausea medicines. Patient states that she is feeling much better. Labs are otherwise acceptable and is hemodynamically stable. Patient has not had constant rectal bleeding. I have reviewed options with the patient and spouse and they would prefer to call her family doctor in the morning as well as a GI doctor for possible outpatient colonoscopy. They are aware that with any worsening bleeding, fatigue, dizziness, fever, or any other worsening symptoms to return the emergency department. Both are in agreement. Low suspicion/risk for acute appendicitis, bowel obstruction, acute cholecystitis, acute cholangitis, perforated diverticulitis, incarcerated hernia, pancreatitis, perforated ulcer, peritonitis, sepsis, pelvic inflammatory disease, tubo-ovarian abscess, or other systemic emergent condition at this time. Patient is aware that her condition can change from initial presentation and she needs to monitor symptoms closely and seek medical attention if any acute changes. Conservative measures otherwise for symptoms. Recheck with your PCM tomorrow. Call GI for consult and probable colonoscopy. Return to the ED with any worsening/concerning symptoms otherwise as reviewed in discharge. Spouse/Patient in agreement. - Vital Signs Vital signs: Temp Pulse Resp BP Pulse Ox 98 F 72 12 140/75 H 71 L 02/16/19 13:30 02/16/19 13:30 02/16/19 16:04 02/16/19 16:04 02/16/19 16:04 - Laboratory Result Diagrams: 02/16/19 13:45 02/16/19 13:45 Laboratory results interpreted by me: 02/16/19 02/16/19 02/16/19 13:45 13:45 17:08 Seg Neutrophils % 78.2 H Sodium 128.7 L Chloride 92 L BUN 26 H Est GFR (MDRD) Non-Af 53 L Glucose 168 H Urine Protein 100 H Discharge - Discharge Clinical Impression: Hematochezia Nausea and vomiting Qualifiers: Vomiting type: unspecified Vomiting Intractability: non-intractable Qualified Code(s): R11.2 - Nausea with vomiting, unspecified Condition: Stable Disposition: HOME, SELF-CARE Instructions: Vomiting ([facility]) Additional Instructions: Maintain adequate fluid and food intake [place] diet ([employer] Bananas, rice, apples, toast, etc Zofran as needed tylenol if needed Monitor for any worsening symptoms or worsening bleeding Make sure you are staying hydrated enough to urinate and have normal BM's Recheck with your PCM tomorrow* Call and schedule consult with Gastroenterology for probable outpatient colonoscopy* Return to the ED with any worsening symptoms and/or development of fever, headache, chest pain, palpitations, syncope, shortness of breath, trouble breathing, abdominal pain, n/v/d, worsening blood in stool/urine, weakness, dizziness, or other worsening symptoms that are concerning to you. Prescriptions: Ondansetron [Zofran Odt 4 mg Tablet] 1 - 2 tab PO Q4H PRN #15 tab.rapdis PRN Reason: For Nausea/Vomiting Forms: Elevated Blood Pressure Referrals: JEFF LOMAX MD [ACTIVE STAFF] - Follow up as needed ESTIVEN VANCE MD [ACTIVE STAFF] - Follow up as needed BENOIT DUPONT MD [HONORARY] - Follow up tomorrow
[2019-02-16 14:44] LABS: PLATELET COUNT 268 10^3/uL (150-450)
[2019-02-16 14:57] LABS: ALBUMIN 4.2 g/dL (3.5-5.0); ALKALINE PHOSPHATASE 90 U/L (38-126); ANION GAP 11 (5-19); ASPARTATE AMINO TRANSFERASE 35 U/L (14-36); BILIRUBIN,DIRECT 0.2 mg/dL (0.0-0.4); BILIRUBIN,TOTAL 0.5 mg/dL (0.2-1.3); BLOOD UREA NITROGEN 26 mg/dL (7-20); CARBON DIOXIDE 26 mmol/L (22-30); CHLORIDE 92 mmol/L (98-107); GLUCOSE 168 mg/dL (75-110); POTASSIUM 4.2 mmol/L (3.6-5.0)
--- NOTE | 2019-02-16 15:24 | RADIOLOGY REPORT (SQ) ---
EXAM DESCRIPTION: CHEST SINGLE VIEW COMPLETED DATE/TIME: 02/16/2019 3:07 pm REASON FOR STUDY: n/v COMPARISON: 06/15/2017. EXAM PARAMETERS: NUMBER OF VIEWS: One view. TECHNIQUE: Single frontal radiographic view of the chest acquired. RADIATION DOSE: NA LIMITATIONS: None. FINDINGS: LUNGS AND PLEURA: No opacities, masses or pneumothorax. No pleural effusion. MEDIASTINUM AND HILAR STRUCTURES: No masses. Contour normal. HEART AND VASCULAR STRUCTURES: Heart normal in size. Normal vasculature. BONES: No acute findings. Degenerative changes in the spine and shoulders. HARDWARE: None in the chest. OTHER: No other significant finding. IMPRESSION: NO ACUTE RADIOGRAPHIC FINDING IN THE CHEST. TECHNICAL DOCUMENTATION: JOB ID: [id number] [employer]- All Rights Reserved Reading location - IP/workstation name: [email or web address]
[2019-02-16] MEDS ORDERED: METOCLOPRAMIDE HCL INJ/PF 10 MG/2 ML SDV IV ONE (15:57)
[2019-02-16 17:22] LABS: APPEARANCE,URINE SLIGHTLY-CLOUDY; BILIRUBIN,URINE NEGATIVE (NEGATIVE); COLOR,URINE YELLOW; GLUCOSE, URINE NEGATIVE (NEGATIVE); KETONES,URINE NEGATIVE (NEGATIVE); PROTEIN,URINE 100 mg/dL (NEGATIVE); URINE SPECIFIC GRAVITY 1.014; UROBILINOGEN,URINE NEGATIVE mg/dL (<2.0)
[2019-02-16 19:19] VITALS: BP 142/60
== END 2019-02-16 19:21 | disposition home or self-care (01) ==
LOC: ER 13:17
DX: K92.1 Melena (principal); R11.2 Nausea with vomiting, unspecified; I48.91 Unspecified atrial fibrillation; I10 Essential (primary) hypertension; E03.9 Hypothyroidism, unspecified; Z90.49 Acquired absence of other specified parts of digestive tract; Z90.710 Acquired absence of both cervix and uterus
CPT/HCPCS: 99284; 96361; 96374; 36415; 83690; 85025; 80053; 81001; 71045; J2765; J7030

== ENCOUNTER 2019-08-28 16:33 | Emergency (ER) | payer MEDICARE ==
[2019-08-28] MEDS ORDERED: ACETAMINOPHEN 325 MG SUPP.RECT PR ONE (16:49)
--- NOTE | 2019-08-28 16:54 | ER Document Report ---
ED General - General Stated Complaint: GENERAL WEAKNESS Mode of Arrival: Medic Information source: Patient, Emergency Med Personnel Cannot obtain history due to: Altered mental status Notes: Patient is an 83-year-old female presenting to the emergency department via EMS from home chief complaint of syncopal episode. When speaking with the patient she is slightly confused unsure if this is baseline or not patient states that she does not know why she passed out she cannot relate activities prior to or after the event. EMS state that the patient did have a mild fever of 100.6 in route and she received Tylenol. Remainder of history of present illness and review of systems is limited secondary to patient's confusion. TRAVEL OUTSIDE OF THE [place] IN LAST 30 DAYS: No - HPI Onset: Just prior to arrival Onset/Duration: Sudden Quality of pain: No pain Severity: None Pain Level: 0 Associated symptoms: Fever Exacerbated by: Denies Relieved by: Denies Similar symptoms previously: No Recently seen / treated by doctor: No - Related Data Allergies/Adverse Reactions: lisinopril Adverse Reaction (Verified 06/14/17 16:56) cough Past Medical History - General Information source: Patient Cannot obtain history due to: Altered mental status - Social History Smoking Status: Unknown if Ever Smoked Chew tobacco use (# tins/day): No Frequency of alcohol use: None Drug Abuse: None Family History: Reviewed & Not Pertinent Patient has suicidal ideation: No Patient has homicidal ideation: No - Past Medical History Cardiac Medical History: Reports: Hx Atrial Fibrillation, Hx Hypercholesterolemia, Hx Hypertension Denies: Hx Congestive Heart Failure, Hx DVT, Hx Pulmonary Embolism Pulmonary Medical History: Denies: Hx Asthma, Hx COPD Neurological Medical History: Reports: Hx Seizures, Other - Dementia Endocrine Medical History: Reports: Hx Hypothyroidism. Denies: Hx Diabetes Mellitus Type 1, Hx Diabetes Mellitus Type 2, Hx Hyperthyroidism Renal/ Medical History: Denies: Hx Peritoneal Dialysis GI Medical History: Denies: Hx Cirrhosis, Hx Gastroesophageal Reflux Disease, Hx Hepatitis Musculoskeletal Medical History: Reports Hx Arthritis Psychiatric Medical History: Denies: Hx Depression Infectious Medical History: Denies: Hx Hepatitis Past Surgical History: Reports: Hx Cholecystectomy, Hx Hysterectomy, Hx Orthopedic Surgery - bilateral knee replacement - Immunizations Immunizations up to date: Yes Hx Diphtheria, Pertussis, Tetanus Vaccination: Yes Hx Pneumococcal Vaccination: 02/11/14 Review of Systems - Review of Systems -: Yes ROS unobtainable due to patient's medical condition Physical Exam - Vital signs Vitals: Temp 98.9 F 08/28/19 16:33 - Notes Notes: PHYSICAL EXAMINATION: GENERAL: Patient is an 83-year-old female presenting to the emergency department secondary to syncopal episode able to answer basic questions appropriately in no acute distress HEAD: Atraumatic, normocephalic. EYES: Pupils equal round and reactive to light, extraocular movements intact, sclera anicteric, conjunctiva are normal. ENT: nares patent, oropharynx clear without exudates. Tachy mucous membranes. NECK: Normal range of motion, supple without lymphadenopathy, no appreciable JVD LUNGS: Lungs clear to auscultation bilaterally and equal. No wheezes rales or rhonchi. HEART: Regular rate and rhythm without murmurs ABDOMEN: Soft, nontender, normal bowel sounds. No guarding, no rebound. No masses appreciated. EXTREMITIES: Active full range of motion, no pitting or edema. No cyanosis. 2+ pulses x4 NEUROLOGICAL: Patient answers basic questions as to name and month and day but is confused as to year and her overall age. She does follow commands intermittently correctly. Patient has not ambulated because of history of syncopal episode. Patient has no focal neurologic deficits other than as stated above SKIN: Warm, Dry, and intact. Normal turgor, no rashes or lesions noted. Course - Re-evaluation Re-evalutation: 08/28/19 20:07 Nursing staff advised me that they are able to contact the patient's family members and found out the patient does have a history of dementia. When they discussed with the family the patient's presenting behaviors of confusion they state that this is her baseline they just wanted the patient evaluated because of the fall. Patient does continue to rest comfortably in hospital bed I have reviewed EKG radiologic studies and laboratory studies and find no significant abnormalities. At this point in time the patient will be discharged back home. I recommend that the family follow-up with the patient's primary care provider in the next several days. - Vital Signs Vital signs: Temp Pulse Resp BP Pulse Ox 98.9 F 13 134/71 H 08/28/19 16:59 08/28/19 17:00 08/28/19 16:45 - Laboratory Result Diagrams: 08/28/19 17:01 04/30/20 17:01 Laboratory results interpreted by me: 08/28/19 08/28/19 08/28/19 17:01 17:01 17:01 RBC 3.33 L Hgb 10.9 L Hct 31.0 L Lymph % (Auto) 11.8 L Seg Neutrophils % 78.3 H Sodium 128.8 L Chloride 91 L BUN 26 H Est GFR (MDRD) Non-Af 54 L Glucose 123 H AST 42 H Alkaline Phosphatase 141 H NT-Pro-B Natriuret Pep 496 H Urine Blood 08/28/19 17:01 RBC Hgb Hct Lymph % (Auto) Seg Neutrophils % Sodium Chloride BUN Est GFR (MDRD) Non-Af Glucose AST Alkaline Phosphatase NT-Pro-B Natriuret Pep Urine Blood SMALL H - Diagnostic Test Radiology reviewed: Reports reviewed - EKG Interpretation by Me EKG shows normal: Sinus rhythm Rate: Normal Rhythm: NSR When compared to previous EKG there are: Previous EKG unavailable Discharge - Discharge Clinical Impression: Mild dementia Syncope Qualifiers: Syncope type: unspecified Qualified Code(s): R55 - Syncope and collapse Condition: Stable Disposition: HOME, SELF-CARE Additional Instructions: Please follow-up with your primary care provider in the next several days. Return to the emergency department for worsening symptoms.
[2019-08-28 17:44] LABS: ABSOLUTE BASOPHILS # (AUTO) 0.1 10^3/uL (0.0-0.2); ABSOLUTE EOSINOPHILS # (AUTO) 0.1 10^3/uL (0.0-0.6); ABSOLUTE LYMPHOCYTES (AUTO) 0.8 10^3/uL (0.5-4.7); ABSOLUTE MONOCYTES (AUTO) 0.5 10^3/uL (0.1-1.4); ABSOLUTE NEUT (AUTO) 5.2 10^3/uL (1.7-8.2); BASOPHILS % (AUTO) 1.6 % (0-2); HEMOGLOBIN 10.9 g/dL (12.0-15.5); LYMPHOCYTES % (AUTO) 11.8 % (13-45); MEAN CORPUSCULAR HEMOGLOBIN 32.6 pg (27.0-33.4); MEAN CORPUSCULAR HGB CONC 35.1 g/dL (32.0-36.0); MEAN CORPUSCULAR VOLUME 93 fl (80-97); MONOCYTES % (AUTO) 7.3 % (3-13); PLATELET COUNT 316 10^3/uL (150-450); RED BLOOD COUNT 3.33 10^6/uL (3.72-5.28); SEGMENTED NEUTROPHILS % (AUTO) 78.3 % (42-78); TOTAL CELLS COUNTED % (AUTO) 100 %; WHITE BLOOD COUNT 6.7 10^3/uL (4.0-10.5)
--- NOTE | 2019-08-28 17:45 | RADIOLOGY REPORT (SQ) ---
EXAM DESCRIPTION: CT HEAD WITHOUT IMAGES COMPLETED DATE/TIME: 08/28/2019 5:32 pm REASON FOR STUDY: Altered Mental Status s/p Fall COMPARISON: 03/17/2016 TECHNIQUE: Axial images acquired through the brain without intravenous contrast. Images reviewed wi th bone, brain and subdural windows. Additional sagittal and coronal reconstructions were generated. Images stored on PACS. All CT scanners at this facility use dose modulation, iterative reconstruction, and/or weight based d osing when appropriate to reduce radiation dose to as low as reasonably achievable (ALARA). [facility]: Dose Right [facility]: CareDose [facility]: Dose Right [facility]: Teradose 4D [facility]: mediaBunker RADIATION DOSE: CT Rad equipment meets quality standard of care and radiation dose reduction techniq ues were employed. CTDIvol: 53.2 mGy. DLP: 964 mGy-cm.mGy. LIMITATIONS: None. FINDINGS: VENTRICLES: Prominent. CEREBRUM: No masses. No hemorrhage. No midline shift. Areas of low density in the white matter mos t likely due to chronic micro-vascular ischemic change. No evidence for acute infarction. CEREBELLUM: No masses. No hemorrhage. No alteration of density. No evidence for acute infarction. EXTRAAXIAL SPACES: Age-related involutional change. No fluid collections. No masses. ORBITS AND GLOBE: No intra- or extraconal masses. Normal contour of globe without masses. CALVARIUM: No acute fracture. Postsurgical changes in the right occipital bone. PARANASAL SINUSES: No fluid or mucosal thickening. SOFT TISSUES: No mass or hematoma. OTHER: No other significant finding. IMPRESSION: CHRONIC CHANGES OF ATROPHY AND MICROVASCULAR ISCHEMIA. NO ACUTE PROCESS. EVIDENCE OF ACUTE STROKE: NO. TECHNICAL DOCUMENTATION: JOB ID: [id number] Quality ID # [id number]: Final reports with documentation of one or more dose reduction techniques (e.g., Au tomated exposure control, adjustment of the mA and/or kV according to patient size, use of iterative reconstruction technique) 2010 [employer]- All Rights Reserved Reading location - IP/workstation name: [email or web address]
[2019-08-28 17:46] LABS: PARTIAL THROMBOPLASTIN TIME 29.5 SEC (23.5-35.8); PROTHROMBIN TIME 14.2 SEC (11.4-15.4)
--- NOTE | 2019-08-28 17:50 | RADIOLOGY REPORT (SQ) ---
EXAM DESCRIPTION: CHEST SINGLE VIEW IMAGES COMPLETED DATE/TIME: 08/28/2019 5:38 pm REASON FOR STUDY: fever ams COMPARISON: 02/16/2019. EXAM PARAMETERS: NUMBER OF VIEWS: One view. TECHNIQUE: Single frontal radiographic view of the chest acquired. RADIATION DOSE: NA LIMITATIONS: None. FINDINGS: LUNGS AND PLEURA: No opacities, masses or pneumothorax. No pleural effusion. MEDIASTINUM AND HILAR STRUCTURES: No masses. Contour normal. HEART AND VASCULAR STRUCTURES: Heart upper limits of normal in size. Normal vasculature. BONES: No acute findings. Degenerative changes in the spine. HARDWARE: None in the chest. OTHER: No other significant finding. IMPRESSION: NO ACUTE RADIOGRAPHIC FINDING IN THE CHEST. TECHNICAL DOCUMENTATION: JOB ID: [id number] 2010 [employer]- All Rights Reserved Reading location - IP/workstation name: [email or web address]
[2019-08-28 17:57] LABS: ALBUMIN 3.8 g/dL (3.5-5.0); ALKALINE PHOSPHATASE 141 U/L (38-126); ANION GAP 8 (5-19); ASPARTATE AMINO TRANSFERASE 42 U/L (14-36); BILIRUBIN,DIRECT 0.2 mg/dL (0.0-0.4); BILIRUBIN,TOTAL 0.6 mg/dL (0.2-1.3); BLOOD UREA NITROGEN 26 mg/dL (7-20); CARBON DIOXIDE 30 mmol/L (22-30); CHLORIDE 91 mmol/L (98-107); GLUCOSE 123 mg/dL (75-110); TOTAL PROTEIN 7.9 g/dL (6.3-8.2)
[2019-08-28 18:09] LABS: CREATINE KINASE MB 0.69 ng/mL (<4.55); TROPONIN I 0.015 ng/mL
--- NOTE | 2019-08-28 18:27 | EKG REPORT ---
SEVERITY:- NORMAL ECG - SINUS RHYTHM : Confirmed by: Usha Root MD 28-Aug-2019 18:26:36
[2019-08-28 19:32] LABS: APPEARANCE,URINE CLEAR; BILIRUBIN,URINE NEGATIVE (NEGATIVE); COLOR,URINE YELLOW; GLUCOSE, URINE NEGATIVE (NEGATIVE); KETONES,URINE NEGATIVE (NEGATIVE); LEUKOCYTE ESTERASE,URINE NEGATIVE (NEGATIVE); NITRITE,URINE NEGATIVE (NEGATIVE); PROTEIN,URINE NEGATIVE (NEGATIVE); URINE SPECIFIC GRAVITY 1.009; UROBILINOGEN,URINE NEGATIVE mg/dL (<2.0)
[2019-08-28 21:14] VITALS: BP 118/55
== END 2019-08-28 21:28 | disposition home or self-care (01) ==
LOC: ER 16:33
DX: F03.90 Unspecified dementia, unspecified severity, without behavioral disturbance, psychotic disturbance, mood disturbance, and anxiety (principal); R55 Syncope and collapse; R53.1 Weakness; R41.0 Disorientation, unspecified; R50.9 Fever, unspecified; Z79.899 Other long term (current) drug therapy; Z88.8 Allergy status to other drugs, medicaments and biological substances
CPT/HCPCS: 36415; 70450; 71045; 80053; 81001; 82553; 83605; 83880; 84484; 85025; 85610; 85730; 87040; 93005; 93010; 99285

== ENCOUNTER → 2019-09-04 | Outpatient (CLI) | payer MEDICARE ==
[2019-09-04 11:11] LABS: HEMATOCRIT 33.5 % (36.0-47.0); HEMOGLOBIN 11.7 g/dL (12.0-15.5); MEAN CORPUSCULAR HEMOGLOBIN 32.4 pg (27.0-33.4); MEAN CORPUSCULAR HGB CONC 34.9 g/dL (32.0-36.0); MEAN CORPUSCULAR VOLUME 93 fl (80-97); PLATELET COUNT 320 10^3/uL (150-450); RED BLOOD COUNT 3.61 10^6/uL (3.72-5.28); RED CELL DISTRIBUTION WIDTH 13.2 % (11.5-14.0); WHITE BLOOD COUNT 6.1 10^3/uL (4.0-10.5)
[2019-09-04 11:34] LABS: ALBUMIN 3.7 g/dL (3.5-5.0); ALKALINE PHOSPHATASE 130 U/L (38-126); ANION GAP 11 (5-19); ASPARTATE AMINO TRANSFERASE 34 U/L (14-36); BILIRUBIN,DIRECT 0.1 mg/dL (0.0-0.4); BILIRUBIN,TOTAL 0.5 mg/dL (0.2-1.3); BLOOD UREA NITROGEN 19 mg/dL (7-20); CALCIUM 9.3 mg/dL (8.4-10.2); CARBON DIOXIDE 29 mmol/L (22-30); CHLORIDE 91 mmol/L (98-107); CHOLESTEROL 156.71 mg/dL (0-200); GLUCOSE 116 mg/dL (75-110); POTASSIUM 4.3 mmol/L (3.6-5.0); TOTAL PROTEIN 7.4 g/dL (6.3-8.2); TRIGLYCERIDES 96 mg/dL (<150)
[2019-09-04 11:49] LABS: DIRECT LDL 68 mg/dL (<100)
== END ==
LOC: OD 10:36
PROVIDERS: ATTEND Internal Medicine Cardiovascular Disease
DX: E78.00 Pure hypercholesterolemia, unspecified (principal); I10 Essential (primary) hypertension; R06.02 Shortness of breath; R00.2 Palpitations; Z79.899 Other long term (current) drug therapy
CPT/HCPCS: 36415; 80048; 80061; 80076; 83880; 84443; 85027

== ENCOUNTER 2019-09-11 15:49 | Inpatient (IN) | payer MEDICARE ==
--- NOTE | 2019-09-11 16:16 | ER Document Report ---
ED Medical Screen (RME) - General Chief Complaint: Weakness Stated Complaint: WEAKNESS Time Seen by Provider: 09/11/19 16:06 Primary Care Provider: ORLANDO RAMÍREZ MD [Primary Care Provider] - Follow up as needed Mode of Arrival: Wheelchair Information source: Relative Notes: HPI: 83-year-old female presents to the emergency room with spouse who states that patient has not been eating and drinking for the past 24 hours. Has a history of trigeminal neuralgia taking her normal medications without any difficulty. Patient does not voice any complaints. PE: Oriented x2, knows her name and that she is at the hospital. No acute distress noted. Patient voices no complaints. Lungs are clear to auscultation without rales , rhonchi or wheezes, heart regular rate rhythm without murmurs rubs or gallops. I have greeted and performed a rapid initial assessment of this patient. A comprehensive ED assessment and evaluation of the patient, analysis of test results and completion of medical decision making process will be conducted by an additional ED providers. TRAVEL OUTSIDE OF THE [place] IN LAST 30 DAYS: No - Related Data Allergies/Adverse Reactions: lisinopril Adverse Reaction (Verified 09/11/19 16:06) cough Past Medical History - Past Medical History Cardiac Medical History: Reports: Hx Atrial Fibrillation, Hx Hypercholesterolemia, Hx Hypertension Denies: Hx Congestive Heart Failure, Hx DVT, Hx Pulmonary Embolism Pulmonary Medical History: Denies: Hx Asthma, Hx COPD Neurological Medical History: Reports: Hx Seizures Endocrine Medical History: Reports: Hx Hypothyroidism. Denies: Hx Diabetes Mellitus Type 1, Hx Diabetes Mellitus Type 2, Hx Hyperthyroidism Renal/ Medical History: Denies: Hx Peritoneal Dialysis GI Medical History: Denies: Hx Cirrhosis, Hx Gastroesophageal Reflux Disease, Hx Hepatitis Musculoskeltal Medical History: Reports Hx Arthritis Psychiatric Medical History: Denies: Hx Depression Infectious Medical History: Denies: Hx Hepatitis Past Surgical History: Reports: Hx Cholecystectomy, Hx Hysterectomy, Hx Orthopedic Surgery - bilateral knee replacement - Immunizations Immunizations up to date: Yes Hx Diphtheria, Pertussis, Tetanus Vaccination: Yes Physical Exam - Vital signs Vitals: Temp Pulse Resp BP Pulse Ox 98.5 F 84 18 118/60 96 09/11/19 15:56 09/11/19 15:56 09/11/19 15:56 09/11/19 15:56 09/11/19 15:56 Course - Vital Signs Vital signs: Temp Pulse Resp BP Pulse Ox 98.5 F 84 18 118/60 96 09/11/19 15:56 09/11/19 15:56 09/11/19 15:56 09/11/19 15:56 09/11/19 15:56 Doctor's Discharge - Discharge Referrals: ORLANDO RAMÍREZ MD [Primary Care Provider] - Follow up as needed
[2019-09-11] MEDS ORDERED: RINGERS SOLUTION,LACTATED 1,000 ML IV ONE (16:17)
[2019-09-11 17:44] LABS: ABSOLUTE EOSINOPHILS # (AUTO) 0.1 10^3/uL (0.0-0.6); ABSOLUTE LYMPHOCYTES (AUTO) 0.7 10^3/uL (0.5-4.7); ABSOLUTE MONOCYTES (AUTO) 0.4 10^3/uL (0.1-1.4); ABSOLUTE NEUT (AUTO) 4.1 10^3/uL (1.7-8.2); BASOPHILS % (AUTO) 0.7 % (0-2); EOSINOPHILS % (AUTO) 1.9 % (0-6); HEMATOCRIT 27.7 % (36.0-47.0); HEMOGLOBIN 9.7 g/dL (12.0-15.5); MEAN CORPUSCULAR HEMOGLOBIN 32.1 pg (27.0-33.4); MEAN CORPUSCULAR HGB CONC 34.9 g/dL (32.0-36.0); MEAN CORPUSCULAR VOLUME 92 fl (80-97); MONOCYTES % (AUTO) 7.5 % (3-13); PLATELET COUNT 298 10^3/uL (150-450); RED BLOOD COUNT 3.02 10^6/uL (3.72-5.28); RED CELL DISTRIBUTION WIDTH 13.3 % (11.5-14.0); SEGMENTED NEUTROPHILS % (AUTO) 75.9 % (42-78); TOTAL CELLS COUNTED % (AUTO) 100 %; WHITE BLOOD COUNT 5.4 10^3/uL (4.0-10.5)
[2019-09-11 18:02] LABS: ALBUMIN 3.1 g/dL (3.5-5.0); ALKALINE PHOSPHATASE 113 U/L (38-126); ANION GAP 8 (5-19); ASPARTATE AMINO TRANSFERASE 34 U/L (14-36); BILIRUBIN,DIRECT 0.3 mg/dL (0.0-0.4); BILIRUBIN,TOTAL 0.5 mg/dL (0.2-1.3); BLOOD UREA NITROGEN 17 mg/dL (7-20); CALCIUM 8.5 mg/dL (8.4-10.2); CARBON DIOXIDE 29 mmol/L (22-30); CHLORIDE 91 mmol/L (98-107); GLUCOSE 103 mg/dL (75-110); POTASSIUM 4.2 mmol/L (3.6-5.0); TOTAL PROTEIN 6.4 g/dL (6.3-8.2)
--- NOTE | 2019-09-11 18:35 | ER Document Report ---
ED General - General Chief Complaint: General Weakness Stated Complaint: WEAKNESS Time Seen by Provider: 09/11/19 16:06 Mode of Arrival: Wheelchair TRAVEL OUTSIDE OF THE [place] IN LAST 30 DAYS: No - HPI Notes: Patient is an 83-year-old female with a history of trigeminal neuralgia, dementia, who is brought to the emergency department for evaluation of possible dehydration. Patient's is the primary historian, and he is her primary nitric acid plant operator as well. He states that over the last several days she seemed to have a flare of her trigeminal neuralgia. She normally takes her Tegretol 3 times daily, she started taking it 4 times daily yesterday. During the course of this flare, the patient seems to not want to swallow. He states that this is happened in the past. He is unsure as to whether or not this is entirely related to the trigeminal neuralgia, or whether this may be secondary to her dementia. He states she is concerned she was dehydrated, and notes that during a visit to Dr. Apodaca's office a few weeks ago, she was noted to be hyponatremic. The patient herself states that she is not in any pain at this time. She took her pain medication, including Tegretol and Neurontin, this afternoon. - Related Data Allergies/Adverse Reactions: lisinopril Adverse Reaction (Verified 09/11/19 16:06) cough Home Medications: gabapentin, diltiazem, metoprolol, levothyroxine, losartan, rosuvastatin, tegretol Past Medical History - General Information source: Relative - Social History Smoking Status: Former Smoker Chew tobacco use (# tins/day): No Frequency of alcohol use: None Drug Abuse: None Family History: Reviewed & Not Pertinent Patient has homicidal ideation: No - Past Medical History Cardiac Medical History: Reports: Hx Atrial Fibrillation, Hx Hypercholesterolemia, Hx Hypertension Denies: Hx Congestive Heart Failure, Hx DVT, Hx Pulmonary Embolism Pulmonary Medical History: Denies: Hx Asthma, Hx COPD Neurological Medical History: Reports: Hx Seizures, Other - Trigeminal neuralgia Endocrine Medical History: Reports: Hx Hypothyroidism. Denies: Hx Diabetes Mellitus Type 1, Hx Diabetes Mellitus Type 2, Hx Hyperthyroidism Renal/ Medical History: Denies: Hx Peritoneal Dialysis GI Medical History: Denies: Hx Cirrhosis, Hx Gastroesophageal Reflux Disease, Hx Hepatitis Musculoskeletal Medical History: Reports Hx Arthritis Psychiatric Medical History: Denies: Hx Depression Infectious Medical History: Denies: Hx Hepatitis Past Surgical History: Reports: Hx Cholecystectomy, Hx Hysterectomy, Hx Orthopedic Surgery - bilateral knee replacement - Immunizations Immunizations up to date: Yes Hx Diphtheria, Pertussis, Tetanus Vaccination: Yes Hx Pneumococcal Vaccination: 02/11/14 Review of Systems - Review of Systems Constitutional: Malaise, Weakness EENT: Other - Facial pain Neurological/Psychological: See HPI -: Yes All other systems reviewed and negative Physical Exam - Vital signs Vitals: Temp Pulse Resp BP Pulse Ox 98.5 F 84 18 118/60 96 09/11/19 15:56 09/11/19 15:56 09/11/19 15:56 09/11/19 15:56 09/11/19 15:56 - Notes Notes: This is a pleasant 83-year-old female who appears her stated age. She is lying flat in the bed. She has a very blank facial expression, moves exceedingly slowly, but is able to follow directions. Head is normocephalic and atraumatic, pupils are equal round, reactive to light. Oral mucosa is moist. Uvula is midline. Heart is regular, lungs are clear to auscultation bilaterally. Abdomen is soft, nontender, normoactive bowel sounds. Patient has +1 pitting edema to the ankles and feet. Neurovascularly intact distally. Skin is warm and dry. Patient does not have any significant tenderness to light palpation over the face, in the distribution of the trigeminal nerve. She is awake and alert, oriented to person and place, disoriented to time. She moves all 4 e xtremities on command, sensation appears to be intact. No gross facial asymmetry. Course - Re-evaluation Re-evalutation: 09/11/19 18:34 Patient presents to the emergency department for evaluation. I had a long conversation with the patient's . We talked about her difficulty swallowing being secondary to either pain or her dementia. He does suspect that it is more dementia related. Laboratory investigations thus far show a hyponatremia, with a sodium of 127. Certainly this is moderately low, but it has been lower in the past. Patient's relates that she will sit with fluids in her mouth for some time, not swallow them. I have asked the patient auto care center manager to observe the patient attempting to drink, to see if she is able to swallow. I have ordered straight catheter to be placed to obtain a urinalysis. We will repeat BMP to see if she has any improvement in her hyponatremia. We will reassess for response to treatments here. Patient's is amenable to this plan. 09/11/19 19:36 Patient's urinalysis revealed a nitrate positive specimen. Urine culture ordered, IV Rocephin ordered as well. Still awaiting repeat BMP, also ordered blood cultures. Patient is currently stable. It was noted by PCT that the patient took water into her mouth. Without being asked to, she would not swall ow. When she was asked to swallow, she did so. Patient's notes that she will not do that for him. - Vital Signs Vital signs: Temp Pulse Resp BP Pulse Ox 98.5 F 84 18 118/60 96 09/11/19 16:07 09/11/19 15:56 09/11/19 15:56 09/11/19 15:56 09/11/19 15:56 - Laboratory Result Diagrams: 09/11/19 17:30 09/11/19 20:03 Laboratory results interpreted by me: 09/11/19 09/11/19 09/11/19 17:30 17:30 18:40 RBC 3.02 L Hgb 9.7 L Hct 27.7 L Sodium 127.7 L Chloride 91 L Albumin 3.1 L Urine Protein 100 H Urine Nitrite POSITIVE H Ur Leukocyte Esterase TRACE H 09/11/19 20:03 RBC Hgb Hct Sodium 127.4 L Chloride 92 L Albumin Urine Protein Urine Nitrite Ur Leukocyte Esterase Discharge - Discharge Clinical Impression: Weakness, Hyponatremia Dysphagia Qualifiers: Dysphagia type: unspecified Qualified Code(s): R13.10 - Dysphagia, unspecified UTI (urinary tract infection) Qualifiers: Urinary tract infection type: site unspecified Hematuria presence: without hematuria Qualified Code(s): N39.0 - Urinary tract infection, site not specified Condition: Stable Disposition: ADMITTED INPATIENT Admitting Provider: Sophy (Hospitalist) Unit Admitted: Medical Floor
[2019-09-11 19:13] LABS: APPEARANCE,URINE CLEAR; BILIRUBIN,URINE NEGATIVE (NEGATIVE); COLOR,URINE YELLOW; GLUCOSE, URINE NEGATIVE (NEGATIVE); KETONES,URINE NEGATIVE (NEGATIVE); LEUKOCYTE ESTERASE,URINE TRACE (NEGATIVE); NITRITE,URINE POSITIVE (NEGATIVE); PROTEIN,URINE 100 mg/dL (NEGATIVE); URINE SPECIFIC GRAVITY 1.013; UROBILINOGEN,URINE NEGATIVE mg/dL (<2.0)
[2019-09-11] MEDS ORDERED: CEFTRIAXONE 1 GM/D5W RTU 1 GM/50 ML RTUPB IV ONE (19:34)
[2019-09-11 20:45] LABS: ANION GAP 6 (5-19); BLOOD UREA NITROGEN 16 mg/dL (7-20); CALCIUM 8.5 mg/dL (8.4-10.2); CARBON DIOXIDE 29 mmol/L (22-30); CHLORIDE 92 mmol/L (98-107); GLUCOSE 92 mg/dL (75-110); POTASSIUM 4.2 mmol/L (3.6-5.0)
[2019-09-11] MEDS ORDERED: ONDANSETRON HCL INJ/PF 4 MG/2 ML SDV IV PRN (21:53)
[2019-09-11] MEDS ORDERED: MAGNESIUM HYDROXIDE SUSP 30 ML UDCUP PO PRN (21:53)
[2019-09-11] MEDS ORDERED: MAG HYDROX/AL HYDROX/SIMETH SUSP 30 ML UDCUP PO PRN (21:53)
[2019-09-11] MEDS ORDERED: LEVALBUTEROL HCL NEB 0.63 MG/3 ML AMPUL NEB PRN (21:53)
[2019-09-11] MEDS ORDERED: LORAZEPAM INJ 2 MG/1 ML VIAL IV PRN (22:00)
[2019-09-11] MEDS ORDERED: MORPHINE SULFATE 10 MG/ML INJ IV PRN (22:00)
[2019-09-11] MEDS ORDERED: ACETAMINOPHEN 325 MG TABLET PO PRN (22:00)
[2019-09-11] MEDS ORDERED: ACETAMINOPHEN 650 MG SUPP.RECT PR PRN (22:00)
[2019-09-11] MEDS ORDERED: GUAIFENESIN SYRP 200 MG/10 ML UDC PO PRN (22:00)
[2019-09-11] MEDS: FAMOTIDINE 20 MG TABLET PO SCH (22:54)
[2019-09-11] MEDS: RINGERS SOLUTION,LACTATED 1,000 ML IV PRN (22:54)
[2019-09-11] MEDS: HEPARIN SOD (PORCINE) 5,000 UNIT/ML 1 ML VIAL SUBCUT SCH (22:55)
--- NOTE | 2019-09-12 02:35 | PDOC H&P ---
History of Present Illness Admission Date/PCP: 09/11/2019 21:18 Vargas Apodaca MD Patient complains of: Dysphagia History of Present Illness: CHARLES LEBRON is a 83 year old female who presents the emergency room with a 4-day history of dysphagia. Patient has severe dementia and is unable to contribute to her medical care. Her is her zinc etcher and admits gradually worsening dysphagia, now severe, over the last 4 days associated with decreased oral intake of food and liquids as well as difficulty in taking her medications. He initially felt that she may be having a flareup of her trigeminal neuralgia and as such increased her Neurontin and Tegretol from 3 times daily to 4 times daily. This did not seem to produce any improvement in her ability to swallow, in fact he has been unable to get her to swallow for him at all this evening. He has not identified any additional associated or accompanying signs and symptoms. He admits prior similar episodes with flareups of her trigeminal neuralgia. He has not identified any aggravating or ameliorating factors for her dysphagia. In the emergency room she was found to be hyponatremic and grossly dehydrated on physical exam. Urinalysis revealed pyuria with positive urine nitrite. The patient was able to swallow a small amount of fluid for the emergency room nursing staff with a great deal of coaching and encouragement. She was started on IV Rocephin empirically and subsequently admitted to the hospital for further evaluation and treatment. Past Medical History Cardiac Medical History: Reports: Atrial Fibrillation, Hyperlipidema, Hypertension Denies: Congestive Heart Failure, Coronary Artery Disease, DVT, Myocardial Infarction, Pulmonary Embolism Pulmonary Medical History: Reports: Bronchitis, Pneumonia Denies: Asthma, Chronic Obstructive Pulmonary Disease (COPD) EENT Medical History: Denies: Cataracts, Ears - Hearing aids Neurological Medical History: Reports: Seizures, Other - Trigeminal neuralgia Denies: Hemorrhagic CVA, Ischemic CVA Endocrine Medical History: Reports: Hypothyroidism, Obesity Denies: Diabetes Mellitus Type 1, Diabetes Mellitus Type 2, Hyperthyroidism Renal/ Medical History: Denies: Chronic Kidney Disease, Nephrolithiasis Malignancy Medical History: Reports: None GI Medical History: Denies: Cirrhosis, Crohn's Disease, Gastroesophageal Reflux Disease, Hepatitis, Peptic Ulcer Disease, Ulcerative Colitis Musculoskeltal Medical History: Reports: Arthritis Denies: Gout Skin Medical History: Denies: Eczema, Psoriasis Psychiatric Medical History: Reports: Dementia Denies: Alcohol Dependency, Depression, Substance Abuse, Tobacco Dependency Traumatic Medical History: Reports: None Hematology: Reports: Anemia Denies: Bleeding Tendencies Infectious Medical History: Reports: None Past Surgical History Past Surgical History: Reports: Cholecystectomy, Hysterectomy, Knee Replacement, Orthopedic Surgery - bilateral knee replacement Social History Information Source: Legal Guardian - Lives with: Spouse/Significant other Smoking Status: Former Smoker Electronic Cigarette use?: No Frequency of Alcohol Use: None Hx Recreational Drug Use: No Drugs: None Hx Prescription Drug Abuse: No - Advance Directive Resuscitation Status: Full Code Surrogate healthcare decision maker:: Adrián Lebron Family History Family History: CAD - Sister Parental Family History Reviewed: Yes Children Family History Reviewed: No Sibling(s) Family History Reviewed.: Yes Medication/Allergy Home Medications: Benzonatate [Tessalon Perles 100 mg Capsule] 200 mg PO Q8HP PRN 06/14/17 Carbamazepine [Tegretol 200 mg Tablet] 200 mg PO Q6 06/14/17 Docusate Sodium [Colace 100 mg Capsule] 100 mg PO BIDP PRN 06/14/17 Ezetimibe [Zetia 10 mg Tablet] 10 mg PO DAILY 06/14/17 Gabapentin [Neurontin 300 mg Capsule] 300 mg PO Q8 06/14/17 Ketoconazole [Nizoral 2% Shampoo 120 ml Bottle] 1 applic TP Q7D 06/14/17 Levothyroxine Sodium [Synthroid] 50 mcg PO QAM 06/14/17 Losartan Potassium [Cozaar 100 mg Tablet] 100 mg PO DAILY 06/14/17 Metoprolol Tartrate [Lopressor 25 mg Tablet] 25 mg PO QPM 06/14/17 Rosuvastatin Calcium [Crestor 20 mg Tablet] 20 mg PO DAILY 06/14/17 Acetaminophen [Tylenol 325 mg Tablet] 650 mg PO Q4HP PRN tablet 06/18/17 Albuterol Sulfate [Proair HFA] 2 puff IH Q4 PRN #1 inhaler 06/18/17 Azithromycin 500 mg PO DAILY #3 tablet 06/18/17 Prednisone 20 mg PO DAILY #5 tablet 06/18/17 Ondansetron [Zofran Odt 4 mg Tablet] 1 - 2 tab PO Q4H PRN #15 tab.rapdis 02/16/19 Allergies/Adverse Reactions: lisinopril Adverse Reaction (Verified 09/11/19 16:06) cough Review of Systems ROS unobtainable: Due to mental status - Dementia Physical Exam Vital Signs: Temp Pulse Resp BP Pulse Ox 98.5 F 84 18 118/60 96 09/11/19 16:07 09/11/19 15:56 09/11/19 15:56 09/11/19 15:56 09/11/19 15:56 Intake & Output 09/09/19 09/10/19 09/11/19 23:59 23:59 23:59 Intake Total 1050 Balance 1050 Weight 74.1 kg General appearance: PRESENT: no acute distress, cooperative Head exam: PRESENT: atraumatic, normocephalic Eye exam: PRESENT: conjunctiva pink. ABSENT: conjunctival injection, scleral icterus Ear exam: PRESENT: normal external ear exam. ABSENT: bleeding, drainage Mouth exam: PRESENT: dry mucosa, neck supple Neck exam: ABSENT: thyromegaly, tracheal deviation Respiratory exam: PRESENT: clear to auscultation herbert, symmetrical, unlabored Cardiovascular exam: PRESENT: RRR. ABSENT: clicks, gallop, rubs Pulses: PRESENT: normal radial pulses, normal dorsalis pedis pul Vascular exam: ABSENT: normal capillary refill - Capillary refill mildly delayed @ 3 seconds, pallor GI/Abdominal exam: PRESENT: normal bowel sounds, soft Rectal exam: PRESENT: deferred Extremities exam: ABSENT: joint swelling, pedal edema Musculoskeletal exam: ABSENT: deformity, dislocation Neurological exam: PRESENT: alert, oriented to person, CN II-XII grossly intact. ABSENT: oriented to place, oriented to time, oriented to situation, motor sensory deficit Psychiatric exam: PRESENT: appropriate affect, normal mood, other - Affable but confused Skin exam: PRESENT: dry, intact, warm. ABSENT: jaundice, rash, urticaria Results Laboratory Results: 09/11/19 17:30 09/11/19 20:03 09/11/19 09/11/19 09/11/19 17:30 17:30 17:30 WBC 5.4 RBC 3.02 L Hgb 9.7 L Hct 27.7 L MCV 92 MCH 32.1 MCHC 34.9 RDW 13.3 Plt Count 298 Seg Neutrophils % 75.9 Sodium 127.7 L Potassium 4.2 Chloride 91 L Carbon Dioxide 29 Anion Gap 8 BUN 17 Creatinine 0.78 Est GFR ( Amer) > 60 Glucose 103 Lactic Acid 1.2 Calcium 8.5 Total Bilirubin 0.5 AST 34 Alkaline Phosphatase 113 Total Protein 6.4 Albumin 3.1 L Urine Color Urine Appearance Urine pH Ur Specific [place] Urine Protein Urine Glucose (UA) Urine Ketones Urine Blood Urine Nitrite Ur Leukocyte Esterase Urine WBC (Auto) Urine RBC (Auto) 09/11/19 09/11/19 18:40 20:03 WBC RBC Hgb Hct MCV MCH MCHC RDW Plt Count Seg Neutrophils % Sodium 127.4 L Potassium 4.2 Chloride 92 L Carbon Dioxide 29 Anion Gap 6 BUN 16 Creatinine 0.67 Est GFR ( Amer) > 60 Glucose 92 Lactic Acid Calcium 8.5 Total Bilirubin AST Alkaline Phosphatase Total Protein Albumin Urine Color YELLOW Urine Appearance CLEAR Urine pH 6.0 Ur Specific [place] 1.013 Urine Protein 100 H Urine Glucose (UA) NEGATIVE Urine Ketones NEGATIVE Urine Blood NEGATIVE Urine Nitrite POSITIVE H Ur Leukocyte Esterase TRACE H Urine WBC (Auto) 42 Urine RBC (Auto) 0 Assessment and Plan - Diagnosis (1) Dysphagia, oral phase Is this a current diagnosis for this admission?: Yes (2) Pyuria Is this a current diagnosis for this admission?: Yes (3) Hyponatremia Is this a current diagnosis for this admission?: Yes (4) 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 Is this a current diagnosis for this admission?: Yes (5) Trigeminal neuralgia Is this a current diagnosis for this admission?: Yes (6) Seizure disorder Is this a current diagnosis for this admission?: Yes (7) HTN (hypertension) Qualifiers: Hypertension type: essential hypertension Qualified Code(s): I10 - Essential (primary) hypertension Is this a current diagnosis for this admission?: Yes (8) Paroxysmal atrial fibrillation Is this a current diagnosis for this admission?: Yes (9) Hypothyroidism Qualifiers: Hypothyroidism type: unspecified Qualified Code(s): E03.9 - Hypothyroidism, unspecified Is this a current diagnosis for this admission?: Yes (10) Hyperlipidemia Qualifiers: Hyperlipidemia type: unspecified Qualified Code(s): E78.5 - Hyperlipidemia, unspecified Is this a current diagnosis for this admission?: Yes (11) Chronic anemia Is this a current diagnosis for this admission?: Yes - Plan Summary Summary: Patient will be admitted to the medical floor where she will receive routine supportive and symptomatic cares. She already has a advance care plan in place however decisions for her ongoing care will need to be made during her hospital course. She will be continued on IV Rocephin empirically pending results of her blood and urine cultures obtained in the ER. She will receive Ativan 1 mg IV every 4 hours as needed for restlessness or anxiety. She will be continued on her usual medications, as appropriate, once her medication list has been verified and reconciled. Speech therapy will be consulted to evaluate the patient's swallowing mechanism and devise a plan to improve her intake. Physical therapy and Occupational Therapy will also be consulted. insurance and financial services agent will be consulted. Patient will have available a cardiac diet as tolerated. Oral fluid intake will be encouraged. CBCs, metabolic profiles, magnesium levels, Tegretol levels and additional laboratory and or radiographic evaluations will be obtained as appropriate. - Time Time Spent with patient: Less than 15 minutes Medications reviewed and adjusted accordingly: Yes Anticipated discharge: Home with Homehealth, SNF, Hospice - Inpatient Certification Based on my medical assessment, after consideration of the patient's comorbidities, presenting symptoms, or acuity I expect that the services needed warrant INPATIENT care.: Yes I certify that my determination is in accordance with my understanding of Medicare's requirements for reasonable and necessary INPATIENT services [42 CFR 412.3e].: Yes Medical Necessity: Significant Comorbidiites Make Outpatient Treatment Too Risky, Need Close Monitoring Due to Risk of Patient Decompensation, Need For IV Fluids, Need for IV Antibiotics
[2019-09-12] MEDS: RINGERS SOLUTION,LACTATED 1,000 ML IV PRN (04:39)
[2019-09-12 04:51] LABS: HEMATOCRIT 25.1 % (36.0-47.0); HEMOGLOBIN 8.7 g/dL (12.0-15.5); MEAN CORPUSCULAR HEMOGLOBIN 31.6 pg (27.0-33.4); MEAN CORPUSCULAR HGB CONC 34.7 g/dL (32.0-36.0); MEAN CORPUSCULAR VOLUME 91 fl (80-97); PLATELET COUNT 274 10^3/uL (150-450); RED BLOOD COUNT 2.75 10^6/uL (3.72-5.28); RED CELL DISTRIBUTION WIDTH 13.3 % (11.5-14.0); WHITE BLOOD COUNT 5.9 10^3/uL (4.0-10.5)
[2019-09-12 05:06] LABS: ANION GAP 8 (5-19); BLOOD UREA NITROGEN 12 mg/dL (7-20); CALCIUM 8.4 mg/dL (8.4-10.2); CARBON DIOXIDE 28 mmol/L (22-30); CHLORIDE 93 mmol/L (98-107); CHOLESTEROL 120.33 mg/dL (0-200); GLUCOSE 102 mg/dL (75-110); POTASSIUM 4.1 mmol/L (3.6-5.0); TRIGLYCERIDES 84 mg/dL (<150)
[2019-09-12 05:17] LABS: DIRECT LDL 57 mg/dL (<100)
[2019-09-12 05:23] LABS: FREE T3 3.69 pg/mL (2.77-5.27)
[2019-09-12 05:37] LABS: THYROID STIMULATING HORMONE 2.15 uIU/mL (0.47-4.68)
[2019-09-12] MEDS: HEPARIN SOD (PORCINE) 5,000 UNIT/ML 1 ML VIAL SUBCUT SCH ×3 (06:08→21:33)
[2019-09-12] MEDS ORDERED: ADENOSINE INJ/PF 6 MG/2 ML SDV IV ONE (08:16)
--- NOTE | 2019-09-12 09:21 | PDOC PROGRESS REPORT ---
Subjective Progress Note for:: 09/12/19 Reason For Visit: DYSPHAGIA,PYURIA,HYPONATREMIA Dysphasia, trigeminal neuralgia, UTI, natremia, seizure disorder, paroxysmal atrial fib, hypothyroid, seizure disorder Physical Exam Vital Signs: Temp Pulse Resp BP Pulse Ox 99.8 F 166 H 20 154/55 H 94 09/12/19 04:06 09/12/19 07:54 09/12/19 07:54 09/12/19 04:06 09/12/19 07:54 Intake & Output 09/11/19 09/12/19 09/13/19 06:59 06:59 06:59 Intake Total 2109 Balance 2109 Weight 76.8 kg General appearance: PRESENT: mild distress, other - Secondary to new onset SVT Respiratory exam: PRESENT: clear to auscultation herbert. ABSENT: rales, rhonchi, wheezes Cardiovascular exam: PRESENT: tachycardia Neurological exam: PRESENT: alert, awake, oriented to person, oriented to place, oriented to time, oriented to situation, CN II-XII grossly intact. ABSENT: motor sensory deficit Psychiatric exam: PRESENT: flat affect Results Laboratory Results: 09/12/19 04:25 09/12/19 04:25 09/11/19 09/11/19 09/11/19 17:30 17:30 17:30 WBC 5.4 RBC 3.02 L Hgb 9.7 L Hct 27.7 L MCV 92 MCH 32.1 MCHC 34.9 RDW 13.3 Plt Count 298 Seg Neutrophils % 75.9 Sodium 127.7 L Potassium 4.2 Chloride 91 L Carbon Dioxide 29 Anion Gap 8 BUN 17 Creatinine 0.78 Est GFR ( Amer) > 60 Glucose 103 Lactic Acid 1.2 Calcium 8.5 Magnesium Total Bilirubin 0.5 AST 34 Alkaline Phosphatase 113 Total Protein 6.4 Albumin 3.1 L Triglycerides Cholesterol LDL Cholesterol Direct VLDL Cholesterol HDL Cholesterol TSH Free T3 pg/mL Urine Color Urine Appearance Urine pH Ur Specific [place] Urine Protein Urine Glucose (UA) Urine Ketones Urine Blood Urine Nitrite Ur Leukocyte Esterase Urine WBC (Auto) Urine RBC (Auto) 09/11/19 09/11/19 09/12/19 18:40 20:03 04:25 WBC 5.9 RBC 2.75 L Hgb 8.7 L Hct 25.1 L MCV 91 MCH 31.6 MCHC 34.7 RDW 13.3 Plt Count 274 Seg Neutrophils % Sodium 127.4 L Potassium 4.2 Chloride 92 L Carbon Dioxide 29 Anion Gap 6 BUN 16 Creatinine 0.67 Est GFR ( Amer) > 60 Glucose 92 Lactic Acid Calcium 8.5 Magnesium Total Bilirubin AST Alkaline Phosphatase Total Protein Albumin Triglycerides Cholesterol LDL Cholesterol Direct VLDL Cholesterol HDL Cholesterol TSH Free T3 pg/mL Urine Color YELLOW Urine Appearance CLEAR Urine pH 6.0 Ur Specific [place] 1.013 Urine Protein 100 H Urine Glucose (UA) NEGATIVE Urine Ketones NEGATIVE Urine Blood NEGATIVE Urine Nitrite POSITIVE H Ur Leukocyte Esterase TRACE H Urine WBC (Auto) 42 Urine RBC (Auto) 0 09/12/19 09/12/19 04:25 04:25 WBC RBC Hgb Hct MCV MCH MCHC RDW Plt Count Seg Neutrophils % Sodium 128.9 L Potassium 4.1 Chloride 93 L Carbon Dioxide 28 Anion Gap 8 BUN 12 Creatinine 0.63 Est GFR ( Amer) > 60 Glucose 102 Lactic Acid Calcium 8.4 Magnesium 1.6 Total Bilirubin AST Alkaline Phosphatase Total Protein Albumin Triglycerides 84 Cholesterol 120.33 LDL Cholesterol Direct 57 VLDL Cholesterol 17.0 HDL Cholesterol 48 TSH 2.15 Free T3 pg/mL 3.69 Urine Color Urine Appearance Urine pH Ur Specific [place] Urine Protein Urine Glucose (UA) Urine Ketones Urine Blood Urine Nitrite Ur Leukocyte Esterase Urine WBC (Auto) Urine RBC (Auto) Assessment and Plan - Diagnosis (1) Abnormal urinalysis Is this a current diagnosis for this admission?: Yes (2) Atrial fibrillation Is this a current diagnosis for this admission?: Yes (3) Dysphagia, oral phase Is this a current diagnosis for this admission?: Yes (4) Hyperlipidemia Qualifiers: Hyperlipidemia type: unspecified Qualified Code(s): E78.5 - Hyperlipidemia, unspecified Is this a current diagnosis for this admission?: Yes (5) SVT (supraventricular tachycardia) Is this a current diagnosis for this admission?: Yes (6) Tegretol toxicity Qualifiers: Encounter type: initial encounter Injury intent: accidental or unintentional Qualified Code(s): T42.1X1A - Poisoning by iminostilbenes, accidental (unintentional), initial encounter Is this a current diagnosis for this admission?: Yes (7) HTN (hypertension) Qualifiers: Hypertension type: essential hypertension Qualified Code(s): I10 - Essential (primary) hypertension Is this a current diagnosis for this admission?: Yes (8) Seizure Is this a current diagnosis for this admission?: Yes - Plan Summary Summary: Patient will be admitted to the medical floor where she will receive routine supportive and symptomatic cares. She already has a advance care plan in place however decisions for her ongoing care will need to be made during her hospital course. She will be continued on IV Rocephin empirically pending results of her blood and urine cultures obtained in the ER. She will receive Ativan 1 mg IV every 4 hours as needed for restlessness or anxiety. She will be continued on her usual medications, as appropriate, once her medication list has been verified and reconciled. Speech therapy will be consulted to evaluate the patie nt's swallowing mechanism and devise a plan to improve her intake. Physical therapy and Occupational Therapy will also be consulted. medical services assistant will be consulted. Patient will have available a cardiac diet as tolerated. Oral fluid intake will be encouraged. CBCs, metabolic profiles, magnesium levels, Tegretol levels and additional laboratory and or radiographic evaluations will be obtained as appropriate. 09/12/2019 I was called this morning because patient had a change in her vital signs initially her pulse was 91 but it is gone up to 155 initially her blood pressure was elevated 168/73 however it it dropped to 90/51 Patient did not appear to be clammy was not complaining of chest pain no shortness of breath no sweating KG revealed SVT with a rate of 166 She was given a 500 cc bolus of normal saline placed on 1 L nasal cannula and given adenosine 6 mg IV fast push. His rate quickly dropped down into the 60s and then went up to the 90s and patient has remained stable since repeat EKG is pending. She was admitted last night with dysphasia her chronic dementia and possible flareup of her trigeminal neuralgia This morning she is talking to me answers questions simple sentences Noticed where a CT head scan was not done last night and I have ordered that today Patient appears to be toxic on her Tegretol with a level of 17.7. Patient has lactated Ringer's running at 167/h will be changed to normal saline at 100/h patient will continue her Rocephin for her probable UTI Sodium this morning was 128.9 potassium 4.1 hemoglobin 8.7 White count is normal 5.9 BUN of 12 creatinine 0.63 Patient appears to be stable at this time. - Time Time Spent with patient: 35 or more minutes
[2019-09-12] MEDS: DOCUSATE SODIUM 100 MG/10 ML UDC PO SCH ×2 (10:02→17:17)
[2019-09-12] MEDS: FAMOTIDINE 20 MG TABLET PO SCH ×2 (10:02→21:34)
[2019-09-12] MEDS ORDERED: (PENDING PHARMACY ID) (Diltiazem Hcl [Diltiazem 12hr Er] 60 MG) PO PRN (10:58)
--- NOTE | 2019-09-12 12:02 | RADIOLOGY REPORT (SQ) ---
EXAM DESCRIPTION: CT HEAD WITHOUT IMAGES COMPLETED DATE/TIME: 09/12/2019 11:44 am REASON FOR STUDY: syncope COMPARISON: 08/28/2019 TECHNIQUE: Axial images acquired through the brain without intravenous contrast. Images reviewed wi th bone, brain and subdural windows. Additional sagittal and coronal reconstructions were generated. Images stored on PACS. All CT scanners at this facility use dose modulation, iterative reconstruction, and/or weight based d osing when appropriate to reduce radiation dose to as low as reasonably achievable (ALARA). [facility]: Dose Right [facility]: CareDose [facility]: Dose Right [facility]: Teradose 4D [facility]: CyberPatrol RADIATION DOSE: CT Rad equipment meets quality standard of care and radiation dose reduction techniq ues were employed. CTDIvol: 48.5 mGy. DLP: 855 mGy-cm.mGy. LIMITATIONS: None. FINDINGS: VENTRICLES: Prominent. CEREBRUM: No masses. No hemorrhage. No midline shift. Areas of low density in the white matter mos t likely due to chronic micro-vascular ischemic change. No evidence for acute infarction. CEREBELLUM: No masses. No hemorrhage. No alteration of density. No evidence for acute infarction. EXTRAAXIAL SPACES: Age-related involutional change. No fluid collections. No masses. ORBITS AND GLOBE: No intra- or extraconal masses. Normal contour of globe without masses. CALVARIUM: No fracture. PARANASAL SINUSES: Small retention cyst or polyp in the left maxillary sinus. SOFT TISSUES: No mass or hematoma. OTHER: No other significant finding. IMPRESSION: CHRONIC CHANGES OF ATROPHY AND MICROVASCULAR ISCHEMIA. NO ACUTE PROCESS. EVIDENCE OF ACUTE STROKE: NO. TECHNICAL DOCUMENTATION: JOB ID: [id number] Quality ID # [id number]: Final reports with documentation of one or more dose reduction techniques (e.g., Au tomated exposure control, adjustment of the mA and/or kV according to patient size, use of iterative reconstruction technique) 2010 [employer]- All Rights Reserved Reading location - IP/workstation name: [email or web address]
[2019-09-12] MEDS: DILTIAZEM HCL 60 MG TABLET PO SCH ×2 (14:24→21:33)
[2019-09-12] MEDS: CEFTRIAXONE 1 GM/D5W RTU 1 GM/50 ML RTUPB IV SCH (17:17)
[2019-09-12] MEDS: METOPROLOL TARTRATE 25 MG TABLET PO SCH (17:17)
[2019-09-13] MEDS: HYDRALAZINE HCL INJ/PF 20 MG/1 ML SDV IV PRN ×2 (04:05→19:57)
[2019-09-13] MEDS: LEVOTHYROXINE SODIUM 0.05 MG TABLET PO SCH (06:18)
[2019-09-13] MEDS: HEPARIN SOD (PORCINE) 5,000 UNIT/ML 1 ML VIAL SUBCUT SCH ×3 (06:18→21:42)
[2019-09-13] MEDS: DILTIAZEM HCL 60 MG TABLET PO SCH ×3 (06:18→21:42)
[2019-09-13] MEDS: FAMOTIDINE 20 MG TABLET PO SCH ×2 (09:08→21:42)
[2019-09-13] MEDS: EZETIMIBE 10 MG TABLET PO SCH (09:08)
[2019-09-13] MEDS: DOCUSATE SODIUM 100 MG/10 ML UDC PO SCH ×2 (09:08→17:00)
[2019-09-13] MEDS: LOSARTAN POTASSIUM 50 MG TABLET PO SCH (09:08)
--- NOTE | 2019-09-13 14:26 | PDOC PROGRESS REPORT ---
Subjective Progress Note for:: 09/13/19 Reason For Visit: DYSPHAGIA,PYURIA,HYPONATREMIA 09/13/2019 Dysphasia, trigeminal neuralgia, UTI, seizure disorder, paroxysmal atrial fib, hypothyroid, hyponatremia Physical Exam Vital Signs: Temp Pulse Resp BP Pulse Ox 98.4 F 96 20 143/52 H 93 09/13/19 11:23 09/13/19 11:23 09/13/19 11:23 09/13/19 11:23 09/13/19 11:23 Intake & Output 09/12/19 09/13/19 09/14/19 06:59 06:59 06:59 Intake Total 2109 1050 Balance 2109 1050 Weight 76.8 kg 76.8 kg General appearance: PRESENT: no acute distress, other - Patient seems confused this morning complaining of some pain around her mouth Respiratory exam: PRESENT: clear to auscultation herbert. ABSENT: rales, rhonchi, wheezes Cardiovascular exam: PRESENT: RRR. ABSENT: diastolic murmur, rubs, systolic murmur Neurological exam: PRESENT: altered, awake, other - Intermittent confusion Psychiatric exam: PRESENT: depressed Results Laboratory Results: 09/12/19 04:25 09/12/19 04:25 Impressions: Head CT 09/12/19 09:21 IMPRESSION: CHRONIC CHANGES OF ATROPHY AND MICROVASCULAR ISCHEMIA. NO ACUTE PROCESS. EVIDENCE OF ACUTE STROKE: NO. Assessment and Plan - Diagnosis (1) Abnormal urinalysis Is this a current diagnosis for this admission?: Yes (2) Atrial fibrillation Is this a current diagnosis for this admission?: Yes (3) Dysphagia, oral phase Is this a current diagnosis for this admission?: Yes (4) Hyperlipidemia Qualifiers: Hyperlipidemia type: unspecified Qualified Code(s): E78.5 - Hyperlipidemia, unspecified Is this a current diagnosis for this admission?: Yes (5) SVT (supraventricular tachycardia) Is this a current diagnosis for this admission?: Yes (6) Tegretol toxicity Qualifiers: Encounter type: initial encounter Injury intent: accidental or uni ntentional Qualified Code(s): T42.1X1A - Poisoning by iminostilbenes, acc idental (unintentional), initial encounter Is this a current diagnosis for this admission?: Yes (7) HTN (hypertension) Qualifiers: Hypertension type: essential hypertension Qualified Code(s): I10 - E ssential (primary) hypertension Is this a current diagnosis for this admission?: Yes (8) Seizure Is this a current diagnosis for this admission?: Yes (9) Trigeminal neuralgia Is this a current diagnosis for this admission?: Yes - Plan Summary Summary: Patient will be admitted to the medical floor where she will receive routine supportive and symptomatic cares. She already has a advance care plan in place however decisions for her ongoing care will need to be made during her hospital course. She will be continued on IV Rocephin empirically pending results of her blood and urine cultures obtained in the ER. She will receive Ativan 1 mg IV every 4 hours as needed for restlessness or anxiety. She will be continued on her usual medications, as appropriate, once her medication list has been verified and reconciled. Speech therapy will be consulted to evaluate the patient's swallowing mechanism and devise a plan to improve her intake. Physical therapy and Occupational Therapy will also be consulted. director patient financial services will be consulted. Patient will have available a cardiac diet as tolerated. Oral fluid intake will be encouraged. CBCs, metabolic profiles, magnesium levels, Tegretol levels and additional laboratory and or radiographic evaluations will be obtained as appropriate. 09/12/2019 I was called this morning because patient had a change in her vital signs initially her pulse was 91 but it is gone up to 155 initially her blood pressure was elevated 168/73 however it it dropped to 90/51 Patient did not appear to be clammy was not complaining of chest pain no shortness of breath no sweating KG revealed SVT with a rate of 166 She was given a 500 cc bolus of normal saline placed on 1 L nasal cannula and given adenosine 6 mg IV fast push. His rate quickly dropped down into the 60s and then went up to the 90s and patient has remained stable since repeat EKG is pending. She was admitted last night with dysphasia her chronic dementia and possible flareup of her trigeminal neuralgia This morning she is talking to me answers questions simple sentences Noticed where a CT head scan was not done last night and I have ordered that today Patient appears to be toxic on her Tegretol with a level of 17.7. Patient has lactated Ringer's running at 167/h will be changed to normal saline at 100/h patient will continue her Rocephin for her probable UTI Sodium this morning was 128.9 potassium 4.1 hemoglobin 8.7 White count is normal 5.9 BUN of 12 creatinine 0.63 Patient appears to be stable at this time. 09/13/2019 I have changed patient's diet to a soft diet as it appears to be painful for her to chew and to eat probably secondary to her trigeminal neuralgia. Is complaining of some pain around her lips and the top of her mouth. Sodium has gone up to 128.9 potassium stable 4.1 renal functions are normal culture so far negative. Patient had a CT scan of the head that was negative. He is requesting half-way facility placement, which seems to be appropriate for patient's level of function, patient is a DNR. Temperature 99.3 pulse 77 blood pressure 152/55 O2 sat 99% on 1 L Did call patient's yesterday and had a long discussion concerning her health care - Time Time Spent with patient: 25-34 minutes
[2019-09-13] MEDS: CEFTRIAXONE 1 GM/D5W RTU 1 GM/50 ML RTUPB IV SCH (16:59)
[2019-09-13] MEDS: METOPROLOL TARTRATE 25 MG TABLET PO SCH (16:59)
[2019-09-14] MEDS: DILTIAZEM HCL 60 MG TABLET PO SCH ×3 (05:07→23:16)
[2019-09-14] MEDS: HEPARIN SOD (PORCINE) 5,000 UNIT/ML 1 ML VIAL SUBCUT SCH ×3 (05:07→23:15)
[2019-09-14] MEDS: LEVOTHYROXINE SODIUM 0.05 MG TABLET PO SCH (05:07)
[2019-09-14 08:22] LABS: ABSOLUTE LYMPHOCYTES (AUTO) 0.8 10^3/uL (0.5-4.7); ABSOLUTE MONOCYTES (AUTO) 0.5 10^3/uL (0.1-1.4); ABSOLUTE NEUT (AUTO) 5.5 10^3/uL (1.7-8.2); BASOPHILS % (AUTO) 0.7 % (0-2); EOSINOPHILS % (AUTO) 0.1 % (0-6); HEMATOCRIT 27.2 % (36.0-47.0); HEMOGLOBIN 9.4 g/dL (12.0-15.5); LYMPHOCYTES % (AUTO) 11.8 % (13-45); MEAN CORPUSCULAR HEMOGLOBIN 31.6 pg (27.0-33.4); MEAN CORPUSCULAR HGB CONC 34.5 g/dL (32.0-36.0); MEAN CORPUSCULAR VOLUME 91 fl (80-97); MONOCYTES % (AUTO) 7.8 % (3-13); PLATELET COUNT 304 10^3/uL (150-450); RED BLOOD COUNT 2.98 10^6/uL (3.72-5.28); RED CELL DISTRIBUTION WIDTH 13.6 % (11.5-14.0); SEGMENTED NEUTROPHILS % (AUTO) 79.6 % (42-78); TOTAL CELLS COUNTED % (AUTO) 100 %; WHITE BLOOD COUNT 6.9 10^3/uL (4.0-10.5)
[2019-09-14 08:39] LABS: ANION GAP 8 (5-19); BLOOD UREA NITROGEN 10 mg/dL (7-20); CALCIUM 8.6 mg/dL (8.4-10.2); CARBON DIOXIDE 27 mmol/L (22-30); CHLORIDE 96 mmol/L (98-107); GLUCOSE 114 mg/dL (75-110); POTASSIUM 3.5 mmol/L (3.6-5.0)
[2019-09-14] MEDS: LOSARTAN POTASSIUM 50 MG TABLET PO SCH (09:30)
[2019-09-14] MEDS: FAMOTIDINE 20 MG TABLET PO SCH ×2 (09:30→23:16)
[2019-09-14] MEDS: EZETIMIBE 10 MG TABLET PO SCH (09:30)
[2019-09-14] MEDS: DOCUSATE SODIUM 100 MG/10 ML UDC PO SCH ×2 (09:30→17:16)
--- NOTE | 2019-09-14 10:54 | EKG REPORT ---
SEVERITY:- ABNORMAL ECG - SUPRAVENTRICULAR TACHYCARDIA ST DEPRESSION, PROBABLY RATE RELATED : Confirmed by: Rosaura Loera 14-Sep-2019 10:53:15
--- NOTE | 2019-09-14 10:54 | EKG REPORT ---
SEVERITY:- OTHERWISE NORMAL ECG - SINUS TACHYCARDIA : Confirmed by: Rosaura Loera 14-Sep-2019 10:52:44
[2019-09-14] MEDS: HYDRALAZINE HCL INJ/PF 20 MG/1 ML SDV IV PRN ×2 (11:54→16:38)
--- NOTE | 2019-09-14 14:07 | PDOC PROGRESS REPORT ---
Subjective Progress Note for:: 09/14/19 Reason For Visit: DYSPHAGIA,PYURIA,HYPONATREMIA 09/14/2019 Patient admitted for dysphagia, trigeminal neuralgia, UTI, seizure disorder, paroxysmal atrial fib, hypothyroid, hyponatremia Physical Exam Vital Signs: Temp Pulse Resp BP Pulse Ox 97.7 F 93 20 171/60 H 96 09/14/19 11:33 09/14/19 11:33 09/14/19 11:33 09/14/19 11:33 09/14/19 11:33 Intake & Output 09/13/19 09/14/19 09/15/19 06:59 06:59 06:59 Intake Total 1050 170 60 Balance 1050 170 60 Weight 76.8 kg 79.8 kg General appearance: PRESENT: no acute distress - Patient appears to be up and am bulatory in the hallway with physical therapy and a walker Respiratory exam: PRESENT: clear to auscultation herbert. ABSENT: rales, rhonchi, wheezes Cardiovascular exam: PRESENT: RRR. ABSENT: diastolic murmur, rubs, systolic murmur Neurological exam: PRESENT: alert, awake Psychiatric exam: PRESENT: flat affect Results Laboratory Results: 09/14/19 08:02 09/14/19 08:02 09/14/19 09/14/19 08:02 08:02 WBC 6.9 RBC 2.98 L Hgb 9.4 L Hct 27.2 L MCV 91 MCH 31.6 MCHC 34.5 RDW 13.6 Plt Count 304 Seg Neutrophils % 79.6 H Sodium 131.2 L Potassium 3.5 L Chloride 96 L Carbon Dioxide 27 Anion Gap 8 BUN 10 Creatinine 0.58 Est GFR ( Amer) > 60 Glucose 114 H Calcium 8.6 09/11/19 18:40 Catheterized Urine Urine Culture - Final Staph Coagulase Negative Impressions: Head CT 09/12/19 09:21 IMPRESSION: CHRONIC CHANGES OF ATROPHY AND MICROVASCULAR ISCHEMIA. NO ACUTE PROCESS. EVIDENCE OF ACUTE STROKE: NO. Assessment and Plan - Diagnosis (1) Abnormal urinalysis Is this a current diagnosis for this admission?: Yes (2) Atrial fibrillation Is this a current diagnosis for this admission?: Yes (3) Dysphagia, oral phase Is this a current diagnosis for this admission?: Yes (4) Hyperlipidemia Qualifiers: Hyperlipidemia type: unspecified Qualified Code(s): E78.5 - Hyperlipidemia, unspecified Is this a current diagnosis for this admission?: Yes (5) SVT (supraventricular tachycardia) Is this a current diagnosis for this admission?: Yes (6) Tegretol toxicity Qualifiers: Encounter type: initial encounter Injury intent: accidental or unintentional Qualified Code(s): T42.1X1A - Poisoning by iminostilbenes, accidental (unintentional), initial encounter Is this a current diagnosis for this admission?: Yes (7) HTN (hypertension) Qualifiers: Hypertension type: essential hypertension Qualified Code(s): I10 - Essential (primary) hypertension Is this a current diagnosis for this admission?: Yes (8) Seizure Is this a current diagnosis for this admission?: Yes (9) Trigeminal neuralgia Is this a current diagnosis for this admission?: Yes - Plan Summary Summary: Patient will be admitted to the medical floor where she will receive routine supportive and symptomatic cares. She already has a advance care plan in place however decisions for her ongoing care will need to be made during her hospital course. She will be continued on IV Rocephin empirically pending results of her blood and urine cultures obtained in the ER. She will receive Ativan 1 mg IV every 4 hours as needed for restlessness or anxiety. She will be continued on her usual medications, as appropriate, once her medication list has been verified and reconciled. Speech therapy will be consulted to evaluate the patient's swallowing mechanism and devise a plan to improve her intake. Physical therapy and Occupational Therapy will also be consulted. dean of student services will be consulted. Patient will have available a cardiac diet as tolerated. Oral fluid intake will be encouraged. CBCs, metabolic profiles, magnesium levels, Tegretol levels and additional laboratory and or radiographic evaluations will be obtained as appropriate. 09/12/2019 I was called this morning because patient had a change in her vital signs initially her pulse was 91 but it is gone up to 155 initially her blood pressure was elevated 168/73 however it it dropped to 90/51 Patient did not appear to be clammy was not complaining of chest pain no shortness of breath no sweating KG revealed SVT with a rate of 166 She was given a 500 cc bolus of normal saline placed on 1 L nasal cannula and given adenosine 6 mg IV fast push. His rate quickly dropped down into the 60s and then went up to the 90s and patient has remained stable since repeat EKG is pending. She was admitted last night with dysphasia her chronic dementia and possible flareup of her trigeminal neuralgia This morning she is talking to me answers questions simple sentences Noticed where a CT head scan was not done last night and I have ordered that today Patient appears to be toxic on her Tegretol with a level of 17.7. Patient has lactated Ringer's running at 167/h will be changed to normal saline at 100/h patient will continue her Rocephin for her probable UTI Sodium this morning was 128.9 potassium 4.1 hemoglobin 8.7 White count is normal 5.9 BUN of 12 creatinine 0.63 Patient appears to be stable at this time. 09/13/2019 I have changed patient's diet to a soft diet as it appears to be painful for her to chew and to eat probably secondary to her trigeminal neuralgia. Is complaining of some pain around her lips and the top of her mouth. Sodium has gone up to 128.9 potassium stable 4.1 renal functions are normal culture so far negative. Patient had a CT scan of the head that was negative. He is requesting senior living facility placement, which seems to be appropriate for patient's level of function, patient is a DNR. Temperature 99.3 pulse 77 blood pressure 152/55 O2 sat 99% on 1 L Did call patient's yesterday and had a long discussion concerning her health care 09/14/2019 Patient seen in the [facility] up and ambulatory with a walker and physical therapy. Patient appears to have a shuffling gait. Temperature 98.7 pulse 92 blood pressure 166/58 O2 sat 98% on 1 L White count remains normal 6.9 hemoglobin stable 9.4 Potassium is dropped slightly 3.5 sodium continues to go up to 131 renal functions are normal Tegretol level today is therapeutic at 6.5 will resume Tegretol at 200 mg extended release every 12 hours Urine cultures growing back staph coag negative, patient was positive for nitrates and a trace of leukocytes. Patient currently is on Rocephin Blood cultures negative for 48 hours Anticipate senior living facility - Time Time Spent with patient: 25-34 minutes
[2019-09-14] MEDS: POTASSIUM CHLORIDE 20 MEQ PACKET PO SCH (14:56)
[2019-09-14] MEDS ORDERED: POTASSIUM CHLORIDE 10 MEQ TABLET.ER PO SCH (15:00)
[2019-09-14] MEDS: METOPROLOL TARTRATE 25 MG TABLET PO SCH (17:15)
[2019-09-14] MEDS: CEFTRIAXONE 1 GM/D5W RTU 1 GM/50 ML RTUPB IV SCH (17:16)
[2019-09-14] MEDS: CARBAMAZEPINE 200 MG TAB.SR.12H PO SCH (23:17)
[2019-09-15] MEDS: HEPARIN SOD (PORCINE) 5,000 UNIT/ML 1 ML VIAL SUBCUT SCH ×2 (07:23→13:52)
[2019-09-15] MEDS: DILTIAZEM HCL 60 MG TABLET PO SCH ×2 (07:24→13:51)
[2019-09-15] MEDS: LEVOTHYROXINE SODIUM 0.05 MG TABLET PO SCH (07:24)
[2019-09-15] MEDS ORDERED: ONDANSETRON HCL INJ/PF 4 MG/2 ML SDV IV PRN (11:30)
[2019-09-15] MEDS: EZETIMIBE 10 MG TABLET PO SCH (11:37)
[2019-09-15] MEDS: POTASSIUM CHLORIDE 20 MEQ PACKET PO SCH (11:37)
[2019-09-15] MEDS: LOSARTAN POTASSIUM 50 MG TABLET PO SCH (11:37)
[2019-09-15] MEDS: FAMOTIDINE 20 MG TABLET PO SCH (11:37)
[2019-09-15] MEDS: CARBAMAZEPINE 200 MG TAB.SR.12H PO SCH (11:38)
[2019-09-15] MEDS: DOCUSATE SODIUM 100 MG/10 ML UDC PO SCH (11:55)
[2019-09-15] MEDS: METOPROLOL TARTRATE 25 MG TABLET PO SCH (17:05)
[2019-09-15] MEDS: CEFTRIAXONE 1 GM/D5W RTU 1 GM/50 ML RTUPB IV SCH (17:06)
[2019-09-15 17:13] VITALS: BP 159/72
[2019-09-15] MEDS ORDERED: DOCUSATE SODIUM 100 MG CAPSULE PO SCH (18:00)
--- NOTE | 2019-09-25 10:56 | PDOC DISCHARGE SUMMARY ---
Impression - Admit/DC Date/PCP Admission Date/Primary Care Provider: 09/11/19 21:29 ORLANDO RAMÍREZ MD Discharge Date: 09/15/19 - Discharge Diagnosis (1) Abnormal urinalysis Is this a current diagnosis for this admission?: Yes (2) Atrial fibrillation Is this a current diagnosis for this admission?: Yes (3) Dysphagia, oral phase Is this a current diagnosis for this admission?: Yes (4) Hyperlipidemia Is this a current diagnosis for this admission?: Yes (5) SVT (supraventricular tachycardia) Is this a current diagnosis for this admission?: Yes (6) Tegretol toxicity Is this a current diagnosis for this admission?: Yes (7) HTN (hypertension) Is this a current diagnosis for this admission?: Yes (8) Seizure Is this a current diagnosis for this admission?: Yes (9) Trigeminal neuralgia Is this a current diagnosis for this admission?: Yes - Assessment Summary: Patient will be admitted to the medical floor where she will receive routine supportive and symptomatic cares. She already has a advance care plan in place however decisions for her ongoing care will need to be made during her hospital course. She will be continued on IV Rocephin empirically pending results of her blood and urine cultures obtained in the ER. She will receive Ativan 1 mg IV every 4 hours as needed for restlessness or anxiety. She will be continued on her usual medications, as appropriate, once her medication list has been verified and reconciled. Speech therapy will be consulted to evaluate the patient's swallowing mechanism and devise a plan to improve her intake. Physical therapy and Occupational Therapy will also be consulted. Social servi delta will be consulted. Patient will have available a cardiac diet as tolerated. Oral fluid intake will be encouraged. CBCs, metabolic profiles, magnesium levels, Tegretol levels and additional laboratory and or radiographic evaluations will be obtained as appropriate. 09/12/2019 I was called this morning because patient had a change in her vital signs initially her pulse was 91 but it is gone up to 155 initially her blood pressure was elevated 168/73 however it it dropped to 90/51 Patient did not appear to be clammy was not complaining of chest pain no shortness of breath no sweating KG revealed SVT with a rate of 166 She was given a 500 cc bolus of normal saline placed on 1 L nasal cannula and given adenosine 6 mg IV fast push. His rate quickly dropped down into the 60s and then went up to the 90s and patient has remained stable since repeat EKG is pending. She was admitted last night with dysphasia her chronic dementia and possible flareup of her trigeminal neuralgia This morning she is talking to me answers questions simple sentences Noticed where a CT head scan was not done last night and I have ordered that today Patient appears to be toxic on her Tegretol with a level of 17.7. Patient has lactated Ringer's running at 167/h will be changed to normal saline at 100/h patient will continue her Rocephin for her probable UTI Sodium this morning was 128.9 potassium 4.1 hemoglobin 8.7 White count is normal 5.9 BUN of 12 creatinine 0.63 Patient appears to be stable at this time. 09/13/2019 I have changed patient's diet to a soft diet as it appears to be painful for her to chew and to eat probably secondary to her trigeminal neuralgia. Is complaining of some pain around her lips and the top of her mouth. Sodium has gone up to 128.9 potassium stable 4.1 renal functions are normal culture so far negative. Patient had a CT scan of the head that was negative. He is requesting residential facility placement, which seems to be appropriate for patient's level of function, patient is a DNR. Temperature 99.3 pulse 77 blood pressure 152/55 O2 sat 99% on 1 L Did call patient's yesterday and had a long discussion concerning her health care 09/14/2019 Patient seen in the hallway up and ambulatory with a walker and physical therapy. Patient appears to have a shuffling gait. Temperature 98.7 pulse 92 blood pressure 166/58 O2 sat 98% on 1 L White count remains normal 6.9 hemoglobin stable 9.4 Potassium is dropped slightly 3.5 sodium continues to go up to 131 renal functions are normal Tegretol level today is therapeutic at 6.5 will resume Tegretol at 200 mg extended release every 12 hours Urine cultures growing back staph coag negative, patient was positive for nitrates and a trace of leukocytes. Patient currently is on Rocephin Blood cultures negative for 48 hours Family is planning to take patient home. Discussed her care with as well as the children. - Additional Information Resuscitation Status: Do Not Resuscitate Discharge Diet: Other (Comments) Discharge Activity: Activity As Tolerated, Walk Frequently Referrals: ORLANDO RAMÍREZ MD [Primary Care Provider] - 09/18/19 10:00 am (PLEASE CALL [phone] TO SET UP A TELE MED APPT ) Prescriptions: Cephalexin Monohydrate [Keflex 125 mg/5 ml Susp] 125 mg PO Q8 3 Days #100 ml Carbamazepine [Tegretol Xr 200 mg Tab.sr] 200 mg PO Q12 30 Days #60 tab.sr.12h Home Medications: Ezetimibe [Zetia 10 mg Tablet] 10 mg PO DAILY 06/14/17 Gabapentin [Neurontin 300 mg Capsule] 300 mg PO Q8 06/14/17 Levothyroxine Sodium [Synthroid] 50 mcg PO Q6AM 06/14/17 Losartan Potassium [Cozaar 100 mg Tablet] 100 mg PO DAILY 06/14/17 Metoprolol Tartrate [Lopressor 25 mg Tablet] 25 mg PO QPM 06/14/17 Rosuvastatin Calcium [Crestor 20 mg Tablet] 20 mg PO DAILY 06/14/17 Nitroglycerin [Nitrostat 0.4 mg (1/150 Gr) Tabs 25/Bottle] 1 tab SL Q5MP PRN 09/12/19 Carbamazepine [Tegretol Xr 200 mg Tab.sr] 200 mg PO Q12 30 Days #60 tab.sr.12h 09/15/19 Cephalexin Monohydrate [Keflex 125 mg/5 ml Susp] 125 mg PO Q8 3 Days #100 ml Diltiazem HCl [Cardizem 60 mg Tablet] 60 mg PO ASDIR PRN 09/23/19 History of Present Illiness History of Present Illness: CHARLES LEBRON is a 83 year old female Physical Exam Vital Signs: Temp Pulse Resp BP Pulse Ox 98.7 F 116 H 12 145/79 H 95 09/15/19 15:48 09/15/19 15:48 09/15/19 15:48 09/15/19 15:48 09/15/19 15:48 Intake & Output 09/14/19 09/15/19 09/16/19 06:59 06:59 06:59 Intake Total 170 170 Balance 170 170 Weight 79.8 kg 79.8 kg Results Laboratory Results: WBC 6.9 10^3/uL (4.0-10.5) 09/14/19 08:02 RBC 2.98 10^6/uL (3.72-5.28) L 09/14/19 08:02 Hgb 9.4 g/dL (12.0-15.5) L 09/14/19 08:02 Hct 27.2 % (36.0-47.0) L 09/14/19 08:02 MCV 91 fl (80-97) 09/14/19 08:02 MCH 31.6 pg (27.0-33.4) 09/14/19 08:02 MCHC 34.5 g/dL (32.0-36.0) 09/14/19 08:02 RDW 13.6 % (11.5-14.0) 09/14/19 08:02 Plt Count 304 10^3/uL (150-450) 09/14/19 08:02 Lymph % (Auto) 11.8 % (13-45) L 09/14/19 08:02 [place] % (Auto) 7.8 % (3-13) 09/14/19 08:02 Eos % (Auto) 0.1 % (0-6) 09/14/19 08:02 Baso % (Auto) 0.7 % (0-2) 09/14/19 08:02 Absolute Neuts (auto) 5.5 10^3/uL (1.7-8.2) 09/14/19 08:02 Absolute Lymphs (auto) 0.8 10^3/uL (0.5-4.7) 09/14/19 08:02 Absolute Monos (auto) 0.5 10^3/uL (0.1-1.4) 09/14/19 08:02 Absolute Eos (auto) 0.0 10^3/uL (0.0-0.6) 09/14/19 08:02 Absolute Basos (auto) 0.0 10^3/uL (0.0-0.2) 09/14/19 08:02 Seg Neutrophils % 79.6 % (42-78) H 09/14/19 08:02 Sodium 131.2 mmol/L (137-145) L 09/14/19 08:02 Potassium 3.5 mmol/L (3.6-5.0) L 09/14/19 08:02 Chloride 96 mmol/L (98-107) L 09/14/19 08:02 Carbon Dioxide 27 mmol/L (22-30) 09/14/19 08:02 Anion Gap 8 (5-19) 09/14/19 08:02 BUN 10 mg/dL (7-20) 09/14/19 08:02 Creatinine 0.58 mg/dL (0.52-1.25) 09/14/19 08:02 Est GFR ( Amer) > 60 (>60) 09/14/19 08:02 Est GFR (MDRD) Non-Af > 60 (>60) 09/14/19 08:02 Glucose 114 mg/dL (75-110) H 09/14/19 08:02 Lactic Acid 1.2 mmol/L (0.7-2.1) 09/11/19 17:30 Calcium 8.6 mg/dL (8.4-10.2) 09/14/19 08:02 Magnesium 1.6 mg/dL (1.6-2.3) 09/12/19 04:25 Total Bilirubin 0.5 mg/dL (0.2-1.3) 09/11/19 17:30 Direct Bilirubin 0.3 mg/dL (0.0-0.4) 09/11/19 17:30 Neonat Total Bilirubin Not Reportable 09/11/19 17:30 Neonat Direct Bilirubin Not Reportable 09/11/19 17:30 Neonat Indirect Bili Not Reportable 09/11/19 17:30 AST 34 U/L (14-36) 09/11/19 17:30 ALT 25 U/L (<35) 09/11/19 17:30 Alkaline Phosphatase 113 U/L (38-126) 09/11/19 17:30 Total Protein 6.4 g/dL (6.3-8.2) 09/11/19 17:30 Albumin 3.1 g/dL (3.5-5.0) L 09/11/19 17:30 Triglycerides 84 mg/dL (<150) 09/12/19 04:25 Cholesterol 120.33 mg/dL (0-200) 09/12/19 04:25 LDL Cholesterol Direct 57 mg/dL (<100) 09/12/19 04:25 VLDL Cholesterol 17.0 mg/dL (10-31) 09/12/19 04:25 HDL Cholesterol 48 mg/dL (>40) 09/12/19 04:25 TSH 2.15 uIU/mL (0.47-4.68) 09/12/19 04:25 Free T3 pg/mL 3.69 pg/mL (2.77-5.27) 09/12/19 04:25 Urine Color YELLOW 09/11/19 18:40 Urine Appearance CLEAR 09/11/19 18:40 Urine pH 6.0 (5.0-9.0) 09/11/19 18:40 Ur Specific [place] 1.013 09/11/19 18:40 Urine Protein 100 mg/dL (NEGATIVE) H 09/11/19 18:40 Urine Glucose (UA) NEGATIVE mg/dL (NEGATIVE) 09/11/19 18:40 Urine Ketones NEGATIVE mg/dL (NEGATIVE) 09/11/19 18:40 Urine Blood NEGATIVE (NEGATIVE) 09/11/19 18:40 Urine Nitrite POSITIVE (NEGATIVE) H 09/11/19 18:40 Urine Bilirubin NEGATIVE (NEGATIVE) 09/11/19 18:40 Urine Urobilinogen NEGATIVE mg/dL (<2.0) 09/11/19 18:40 Ur Leukocyte Esterase TRACE (NEGATIVE) H 09/11/19 18:40 Urine WBC (Auto) 42 /HPF 09/11/19 18:40 Urine RBC (Auto) 0 /HPF 09/11/19 18:40 U Hyaline Cast (Auto) 3 /LPF 09/11/19 18:40 Squamous Epi Cells Auto <1 /HPF 09/11/19 18:40 Urine Mucus (Auto) RARE /LPF 09/11/19 18:40 Urine Ascorbic Acid NEGATIVE (NEGATIVE) 09/11/19 18:40 Carbamazepine 6.5 ug/mL (4.0-12.0) 09/14/19 08:02 Impressions: Head CT 09/12/19 09:21 IMPRESSION: CHRONIC CHANGES OF ATROPHY AND MICROVASCULAR ISCHEMIA. NO ACUTE PROCESS. EVIDENCE OF ACUTE STROKE: NO. Stroke Is this a Stroke Patient?: No Acute Heart Failure - Is this a Heart Failure Patient?: No
== END 2019-09-15 17:00 | disposition home health service (06) | DRG 690 ==
LOC: ER 15:49 → EH 21:29 → 4N 22:40
PROVIDERS: ADMIT Emergency Medicine; ATTEND Physician Assistant
DX: N39.0 Urinary tract infection, site not specified (principal); E87.1 Hypo-osmolality and hyponatremia; I47.1 Supraventricular tachycardia; F05 Delirium due to known physiological condition; R13.11 Dysphagia, oral phase; R53.1 Weakness; G50.0 Trigeminal neuralgia; E86.0 Dehydration; E78.00 Pure hypercholesterolemia, unspecified; I10 Essential (primary) hypertension; D64.9 Anemia, unspecified; E03.9 Hypothyroidism, unspecified; I48.0 Paroxysmal atrial fibrillation; G40.909 Epilepsy, unspecified, not intractable, without status epilepticus; F03.90 Unspecified dementia, unspecified severity, without behavioral disturbance, psychotic disturbance, mood disturbance, and anxiety; T88.7XXA Unspecified adverse effect of drug or medicament, initial encounter; T42.1X5A Adverse effect of iminostilbenes, initial encounter; Y92.018 Other place in single-family (private) house as the place of occurrence of the external cause
CPT/HCPCS: 36415; 51702; 70450; 80048; 80053; 80061; 80156; 81001; 83605; 83735; 84443; 84481; 85025; 85027; 87040; 87086; 93005; 93010; 96361; 96365; 99285; J0153; J0360; J0696; J1644; J3490; J7120

== ENCOUNTER 2019-09-22 20:35 | Inpatient (IN) | payer MEDICARE ==
--- NOTE | 2019-09-22 21:15 | ER Document Report ---
ED General - General Chief Complaint: Altered Mental Status Stated Complaint: ALTERED MENTAL STATUS Time Seen by Provider: 09/22/19 21:09 Primary Care Provider: BENOIT APODACA MD [Primary Care Provider] - Follow up as needed Mode of Arrival: Medic Information source: Patient, Emergency Med Personnel Notes: triage notes Pt arrived by EMS on stretcher from home Pt family reported pt had seizure like activity. EMS received conflicting stories from from family members. one family member told EMS Pt has history of seizure and one family member reported no history. Pt recently seen at [facility] for UTI and currently on Keflex for treatment. EMS reports they did not observe seizure activity. ems placed 22G in RAC pt received approximately 100 MLS of NS in truck. with lactic of 2.5. Pt poor historian . Pt denies pain. Pt alert oriented to person. seizure pads placed on bed pt placed on cardiac monitors. NAD My notes 83-year-old female arrives by EMS after family witnessed seizure. EMS advised patient had some grunting but did not see any grand mal seizures. Patient was recently evaluated here at [place] for UTI and was placed on Keflex. Patient upon arrival advises she feels pretty good but has a slight headache. He does not have any tone bites or lacerations. She has good bottle filler on bilateral hands and positive pulses radial and dorsalis pedis with good range of motion of feet on command as well. She denies any nuchal rigidity chest pain abdominal pain back pain extremity pain or sensation loss. She denies any spider bites animal bites human bites coronavirus exposure. We currently are in a [place] virus pandemic. I spoke with Adrián and he advises since he has been out of the hospital on Sunday she has had very poor p.o. intake 20 ounces or less. She has been eating applesauce and yogurt only. She has a history of dementia and usually sees Dr. Apodaca and is scheduled to see him tomorrow. She also sees Dr. Franklin as occupational ther. He reports last week she was admitted over the weekend because of UTI and sent home on Sunday. Today while in the bathroom trying to get ready for bedtime she passed out for a few minutes. This was around 1945. Her son has been staying with the family for 2 weeks and her daughter has been staying with the family for 4 months in order to help take care of their mother. Patient also has in addition to dementia sleep apnea and trigeminal neuralgia. Patient is snoring in the room while I am talking to her Adrián. Currently medicines for trigeminal neuralgia with 200 mg of Tegretol 3 times daily as well as 300 mg gabapentin 3 times daily and 100 mg daily of losartan for hypertension as well as metoprolol 25 at bedtime and aspirin 81 mg and Crestor and Zetia daily. I discussed this case with Dr. Sang Fontana hospitalist and we will obtain a Tegretol level. She has been here every week since the end of July TRAVEL OUTSIDE OF THE [place] IN LAST 30 DAYS: No - HPI Onset: Just prior to arrival Onset/Duration: Sudden, Better Quality of pain: No pain Severity: None Pain Level: Denies Associated symptoms: Weakness Exacerbated by: Movement Relieved by: Denies Similar symptoms previously: No Recently seen / treated by doctor: No - Related Data Allergies/Adverse Reactions: lisinopril Adverse Reaction (Verified 09/22/19 20:40) cough Past Medical History - General Information source: Patient, Emergency Med Personnel - Social History Smoking Status: Unknown if Ever Smoked Cigarette use (# per day): No Chew tobacco use (# tins/day): No Smoking Education Provided: No Frequency of alcohol use: None Drug Abuse: None Family History: Reviewed & Not Pertinent, CAD - Sister Patient has suicidal ideation: No Patient has homicidal ideation: No - Past Medical History Cardiac Medical History: Reports: Hx Atrial Fibrillation, Hx Hypercholesterolemia, Hx Hypertension Denies: Hx Congestive Heart Failure, Hx Coronary Artery Disease, Hx DVT, Hx Heart Attack, Hx Pulmonary Embolism Pulmonary Medical History: Reports: Hx Bronchitis, Hx Pneumonia Denies: Hx Asthma, Hx COPD, Hx Respiratory Failure Neurological Medical History: Reports: Hx Seizures Endocrine Medical History: Reports: Hx Hypothyroidism. Denies: Hx Diabetes M ellitus Type 1, Hx Diabetes Mellitus Type 2, Hx Hyperthyroidism Renal/ Medical History: Denies: Hx Peritoneal Dialysis GI Medical History: Denies: Hx Cirrhosis, Hx Crohn's Disease, Hx Gastroesophageal Reflux Disease, Hx Hepatitis, Hx Ulcerative Colitis Musculoskeletal Medical History: Reports Hx Arthritis, Denies Hx Gout Skin Medical History: Denies Hx Eczema, Denies Hx Psoriasis Psychiatric Medical History: Reports: Hx Dementia Denies: Hx Depression Infectious Medical History: Denies: Hx Hepatitis Past Surgical History: Reports: Hx Cholecystectomy, Hx Hysterectomy, Hx Orthopedic Surgery - bilateral knee replacement - Immunizations Immunizations up to date: Yes Hx Diphtheria, Pertussis, Tetanus Vaccination: Yes Hx Pneumococcal Vaccination: 02/11/14 Review of Systems - Review of Systems Constitutional: See HPI, Weakness, Recent illness EENT: No symptoms reported Cardiovascular: No symptoms reported Respiratory: No symptoms reported Gastrointestinal: No symptoms reported Genitourinary: No symptoms reported Female Genitourinary: No symptoms reported Musculoskeletal: No symptoms reported Skin: No symptoms reported Hematologic/Lymphatic: No symptoms reported Neurological/Psychological: No symptoms reported Physical Exam - Vital signs Vitals: Resp 14 09/22/19 20:37 Interpretation: Normal - General General appearance: Alert - HEENT Head: Normocephalic, Atraumatic Eyes: Normal Pupils: PERRL Mouth/Lips: Normal Mucous membranes: Dry Pharynx: Normal Neck: Normal - Respiratory Respiratory status: No respiratory distress Chest status: Nontender Breath sounds: Normal Chest palpation: Normal - Cardiovascular Rhythm: Regular Heart sounds: Normal auscultation Murmur: No - Abdominal Inspection: Normal Distension: No distension Bowel sounds: Normal Tenderness: Nontender Organomegaly: No organomegaly - Rectal Stool: Other - deferred - Back Back: Normal - Extremities General upper extremity: Normal inspection General lower extremity: Normal inspection - Neurological Cognition: Confused Orientation: AAOx4 [place] Coma Scale Eye Opening: Spontaneous [place] Coma Scale Verbal: Oriented [place] Coma Scale Motor: Obeys Commands [place] Coma Scale Total: 15 Speech: Normal Cranial nerves: Normal Cerebellar coordination: Normal Motor strength normal: LUE, RUE, LLE, RLE - Psychological Associated symptoms: Flat affect - Skin Skin Temperature: Warm Skin Moisture: Dry Course - Vital Signs Vital signs: Temp Pulse Resp BP Pulse Ox 97.3 F 14 119/60 09/23/19 01:39 09/22/19 22:01 09/22/19 22:01 - Laboratory Result Diagrams: 09/22/19 22:45 09/22/19 22:45 Laboratory results interpreted by me: 09/22/19 09/22/19 09/22/19 22:45 22:45 22:45 RBC 3.14 L Hgb 9.9 L Hct 29.2 L RDW 14.5 H Lymph % (Auto) 7.8 L Seg Neutrophils % 82.8 H D-Dimer ABG pO2 ABG HCO3 ABG Total CO2 ABG O2 Saturation Sodium 129.1 L Chloride 94 L Glucose 130 H AST 67 H ALT 55 H Alkaline Phosphatase 127 H NT-Pro-B Natriuret Pep 475 H Albumin 3.4 L Urine Protein Ur Leukocyte Esterase 09/22/19 09/22/19 09/22/19 22:45 22:58 23:15 RBC Hgb Hct RDW Lymph % (Auto) Seg Neutrophils % D-Dimer 5.21 H ABG pO2 141.4 H ABG HCO3 24.6 H ABG Total CO2 25.8 H ABG O2 Saturation 98.9 H Sodium Chloride Glucose AST ALT Alkaline Phosphatase NT-Pro-B Natriuret Pep Albumin Urine Protein 100 H Ur Leukocyte Esterase TRACE H - Diagnostic Test Radiology reviewed: Reports reviewed - EKG Interpretation by Me EKG shows normal: Sinus rhythm Critical Care Note - Critical Care Note Total time excluding time spent on procedures (mins): 90 Comments: I discussed this case with Dr. Aguilar and he advises telemetry bed Discharge - Discharge Clinical Impression: Somnolence, on tegretol for trieminal neuralgis Syncope Qualifiers: Syncope type: unspecified Qualified Code(s): R55 - Syncope and collapse Condition: Fair Disposition: ADMITTED INPATIENT Admitting Provider: Jeff (Hospitalist) Unit Admitted: Telemetry Referrals: BENOIT APODACA MD [Primary Care Provider] - Follow up as needed
--- NOTE | 2019-09-22 21:39 | RADIOLOGY REPORT (SQ) ---
CT HEAD WITHOUT IV CONTRAST CLINICAL STATEMENT: BINH ACTIVITY TECHNIQUE: Axial CT images from skull base to vertex without IV contrast. This exam was performed according to our departmental dose optimization program, and includes the following measures where applicable: automated exposure control, adjustment of the mAs and/or kVp according to patient size and/or exam, and an iterative reconstruction algorithm. COMPARISON: Unenhanced CT scan of the brain September 02, 20192019 FINDINGS: There is no acute intracranial hemorrhage, mass, mass effect or abnormal extra-axial fluid collection. No evidence of an acute territorial infarct is identified. Ventricles and basilar cisterns are patent. There is mild global volume loss. Extensive low density is noted in the periventricular white matter bilaterally consistent with small vessel ischemic disease. The appearance and distribution is similar to the previous exam. Overall appearance of the brain parenchyma is stable. Calvaria: Postoperative change of right posterior occipital craniotomy. The appearance is stable. Paranasal sinuses: Visualized portions of the orbits and paranasal sinuses are unremarkable. skull base: Unremarkable IMPRESSION: 1. No acute hemorrhage or mass lesion. 2. Age-related volume loss with extensive white matter changes suggestive of small vessel ischemic disease. The appearance is stable.
--- NOTE | 2019-09-22 21:42 | EKG REPORT ---
SEVERITY:- NORMAL ECG - SINUS RHYTHM : Confirmed by: Edilberto Koo MD 22-Sep-2019 21:41:42
--- NOTE | 2019-09-22 22:35 | RADIOLOGY REPORT (SQ) ---
EXAM DESCRIPTION: XR CHEST 1 VIEW COMPLETED DATE/TME: 09/22/2019 21:42 CLINICAL HISTORY: 83 years, Female, weak COMPARISON: 08/28/2019 chest NUMBER OF VIEWS: 1 TECHNIQUE: Portable chest LIMITATIONS: None. FINDINGS: The heart size is normal. Atheromatous change of the thoracic aorta. Osteopenia. Minimal scarring in the lung bases bilaterally. No pneumothorax IMPRESSION: No acute cardiopulmonary process copyright 2010 [email or web address]- All Rights Reserved
[2019-09-22 22:59] LABS: INTERNATIONAL RATION (INR) 1.14; PROTHROMBIN TIME 14.7 SEC (11.4-15.4)
[2019-09-22] MEDS ORDERED: NORMAL SALINE 1000 ML 1,000 ML IV ONE (22:59)
[2019-09-22 23:04] LABS: ABSOLUTE EOSINOPHILS # (AUTO) 0.1 10^3/uL (0.0-0.6); ABSOLUTE LYMPHOCYTES (AUTO) 0.6 10^3/uL (0.5-4.7); ABSOLUTE MONOCYTES (AUTO) 0.6 10^3/uL (0.1-1.4); ABSOLUTE NEUT (AUTO) 6.3 10^3/uL (1.7-8.2); BASOPHILS % (AUTO) 0.4 % (0-2); EOSINOPHILS % (AUTO) 0.9 % (0-6); HEMATOCRIT 29.2 % (36.0-47.0); HEMOGLOBIN 9.9 g/dL (12.0-15.5); LYMPHOCYTES % (AUTO) 7.8 % (13-45); MEAN CORPUSCULAR HEMOGLOBIN 31.6 pg (27.0-33.4); MEAN CORPUSCULAR HGB CONC 33.9 g/dL (32.0-36.0); MEAN CORPUSCULAR VOLUME 93 fl (80-97); MONOCYTES % (AUTO) 8.1 % (3-13); PLATELET COUNT 219 10^3/uL (150-450); RED BLOOD COUNT 3.14 10^6/uL (3.72-5.28); RED CELL DISTRIBUTION WIDTH 14.5 % (11.5-14.0); SEGMENTED NEUTROPHILS % (AUTO) 82.8 % (42-78); TOTAL CELLS COUNTED % (AUTO) 100 %; WHITE BLOOD COUNT 7.6 10^3/uL (4.0-10.5)
[2019-09-22 23:07] LABS: ARTERIAL BLOOD BASE EXCESS 0.2 mmol/L; ARTERIAL BLOOD H2CO3 1.16 mmol/L (1.05-1.35); ARTERIAL BLOOD HCO3 24.6 mmol/L (20-24); ARTERIAL BLOOD O2 SATURATION 98.9 % (94-98); ARTERIAL BLOOD PCO2 38.6 mmHg (35-45); ARTERIAL BLOOD PH 7.42 (7.35-7.45); ARTERIAL BLOOD PO2 141.4 mmHg (80-100); ARTERIAL BLOOD TOTAL CO2 25.8 mmol/L (21-25)
[2019-09-22 23:09] LABS: ARTERIAL BLOOD FIO2 3L
[2019-09-22 23:18] LABS: D-DIMER 5.21 ug/mL (0.00-0.50)
[2019-09-22 23:29] LABS: CREATINE KINASE MB 0.84 ng/mL (<4.55); NT PRO BNP 475 pg/mL (<450)
[2019-09-22 23:31] LABS: TROPONIN I < 0.012 ng/mL
[2019-09-22 23:45] LABS: APPEARANCE,URINE SLIGHTLY-CLOUDY; BILIRUBIN,URINE NEGATIVE (NEGATIVE); COLOR,URINE AMBER; GLUCOSE, URINE NEGATIVE (NEGATIVE); KETONES,URINE NEGATIVE (NEGATIVE); LEUKOCYTE ESTERASE,URINE TRACE (NEGATIVE); NITRITE,URINE NEGATIVE (NEGATIVE); PROTEIN,URINE 100 mg/dL (NEGATIVE); URINE SPECIFIC GRAVITY 1.018; UROBILINOGEN,URINE NEGATIVE mg/dL (<2.0)
[2019-09-22 23:59] LABS: ALBUMIN 3.4 g/dL (3.5-5.0); ALKALINE PHOSPHATASE 127 U/L (38-126); ANION GAP 10 (5-19); ASPARTATE AMINO TRANSFERASE 67 U/L (14-36); BILIRUBIN,DIRECT 0.1 mg/dL (0.0-0.4); BILIRUBIN,TOTAL 0.4 mg/dL (0.2-1.3); BLOOD UREA NITROGEN 20 mg/dL (7-20); CALCIUM 8.6 mg/dL (8.4-10.2); CARBON DIOXIDE 25 mmol/L (22-30); CHLORIDE 94 mmol/L (98-107); GLUCOSE 130 mg/dL (75-110); TOTAL PROTEIN 7.1 g/dL (6.3-8.2)
[2019-09-23] MEDS ORDERED: MAG HYDROX/AL HYDROX/SIMETH SUSP 30 ML UDCUP PO PRN (02:31)
[2019-09-23] MEDS ORDERED: IPRATROPIUM/ALBUTEROL 0.5-2.5 MG/3 ML AMPUL NEB PRN (02:31)
[2019-09-23] MEDS ORDERED: MAGNESIUM HYDROXIDE SUSP 30 ML UDCUP PO PRN (02:31)
[2019-09-23] MEDS ORDERED: ACETAMINOPHEN 325 MG TABLET PO PRN (02:31)
[2019-09-23] MEDS: NORMAL SALINE 1000 ML 1,000 ML IV PRN ×4 (03:00→18:39)
--- NOTE | 2019-09-23 05:52 | PDOC H&P ---
History of Present Illness Admission Date/PCP: 09/23/19 02:41 BENOIT DUPONT MD Patient complains of: Altered mental status History of Present Illness: CHARLES LEBRON is a 83 year old female with a past medical history of hypertension, chronic dizziness, trigeminal neuralgia, paroxysmal atrial fibrillation, orthostatic hypotension, dementia and recurrent encephalopathy. Complicated by recent hospitalization for UTI, by polypharmacy with Tegretol, Neurontin, meclizine and moderate dementia. History is obtained by the record. Per nursing notes and interview family statements suggest she sleeps 20 hours/day awakens with pain takes her medications and goes back to sleep. She presents after having questionable seizure-like activity. In the emergency room she denies complaint. No seizure activity or injury is revealed. Her work-up reveals mild hyponatremia of 129. She is asleep but arousable, denying pain and socially appropriate. She is unaware of her home medication regiment. Past Medical History Cardiac Medical History: Reports: Atrial Fibrillation, Hyperlipidema, Hypertension Denies: Congestive Heart Failure, Coronary Artery Disease, DVT, Myocardial Infarction, Pulmonary Embolism Pulmonary Medical History: Reports: Bronchitis, Pneumonia Denies: Asthma, Chronic Obstructive Pulmonary Disease (COPD), Respiratory Failure Neurological Medical History: Reports: Seizures Endocrine Medical History: Reports: Hypothyroidism Denies: Diabetes Mellitus Type 1, Diabetes Mellitus Type 2, Hyperthyroidism GI Medical History: Denies: Cirrhosis, Crohn's Disease, Gastroesophageal Reflux Disease, Hepat itis, Ulcerative Colitis Musculoskeltal Medical History: Reports: Arthritis Denies: Gout Skin Medical History: Denies: Eczema, Psoriasis Psychiatric Medical History: Reports: Dementia Denies: Depression Hematology: Reports: Anemia Denies: Bleeding Tendencies Past Surgical History Past Surgical History: Reports: Cholecystectomy, Hysterectomy, Orthopedic Surgery - bilateral knee replacement Social History Information Source: Patient Lives with: Family Smoking Status: Unknown if Ever Smoked Electronic Cigarette use?: No Frequency of Alcohol Use: None Hx Recreational Drug Use: No Drugs: None Hx Prescription Drug Abuse: No - Advance Directive Resuscitation Status: Do Not Resuscitate Family History Family History: CAD - Sister Parental Family History Reviewed: Yes Children Family History Reviewed: Yes Sibling(s) Family History Reviewed.: Yes Medication/Allergy Home Medications: Docusate Sodium [Colace 100 mg Capsule] 100 mg PO BIDP PRN 06/14/17 Ezetimibe [Zetia 10 mg Tablet] 10 mg PO DAILY 06/14/17 Gabapentin [Neurontin 300 mg Capsule] 300 mg PO Q8 06/14/17 Levothyroxine Sodium [Synthroid] 50 mcg PO Q6AM 06/14/17 Losartan Potassium [Cozaar 100 mg Tablet] 100 mg PO DAILY 06/14/17 Metoprolol Tartrate [Lopressor 25 mg Tablet] 25 mg PO QPM 06/14/17 Rosuvastatin Calcium [Crestor 20 mg Tablet] 20 mg PO DAILY 06/14/17 Diltiazem HCl [Diltiazem 12Hr ER] 60 mg PO ASDIR PRN 09/12/19 Nitroglycerin [Nitrostat 0.4 mg (1/150 Gr) Tabs 25/Bottle] 1 tab SL Q5MP PRN 09/12/19 Acetaminophen [Tylenol 325 mg Tablet] 650 mg PO Q4HP PRN tablet 09/15/19 Carbamazepine [Tegretol Xr 200 mg Tab.sr] 200 mg PO Q12 30 Days #60 tab.sr.12h 09/15/19 Cephalexin Monohydrate [Keflex 125 mg/5 ml Susp] 125 mg PO Q8 3 Days #100 ml 09/15/19 Diltiazem HCl [Cardizem 60 mg Tablet] 60 mg PO Q8 tablet 09/15/19 Docusate Sodium [Colace Udc 100 mg/10 ml Oral Soln] 100 mg PO BID udc 09/15/19 Famotidine [Pepcid 20 mg Tablet] 20 mg PO Q12 tablet 09/15/19 Guaifenesin [Robitussin Syrup 200 mg/10 ml Ud Cup] 200 mg PO Q4HP PRN udc 09/15/19 Mag Hydrox/Al Hydrox/Simeth [Maalox Plus Susp 30 Udcup] 30 ml PO Q6HP PRN udc 09/15/19 Magnesium Hydroxide [Milk of Magnesia 30 ml Udcup] 30 ml PO HSP PRN udc 09/15/19 Potassium Chloride [Potassium Chloride 20 Meq Packet] 20 meq PO DAILY 30 Days #30 packet 09/15/19 Allergies/Adverse Reactions: lisinopril Adverse Reaction (Verified 09/22/19 20:40) cough Review of Systems ROS unobtainable: Due to mental status Physical Exam Vital Signs: Temp Pulse Resp BP Pulse Ox 97.3 F 93 17 128/60 H 100 09/23/19 03:50 09/23/19 03:50 09/23/19 03:50 09/23/19 03:50 09/23/19 05:05 Intake & Output 09/21/19 09/22/19 09/23/19 11:59 11:59 11:59 Intake Total 1000 Output Total 100 Balance 900 Weight 72 kg General appearance: PRESENT: no acute distress, cooperative, well-developed, well-nourished Head exam: PRESENT: atraumatic, normocephalic Eye exam: PRESENT: conjunctiva pink, EOMI, PERRLA. ABSENT: scleral icterus Ear exam: PRESENT: normal external ear exam Mouth exam: PRESENT: moist, tongue midline Neck exam: ABSENT: carotid bruit, JVD, lymphadenopathy, thyromegaly Respiratory exam: PRESENT: clear to auscultation herbert. ABSENT: rales, rhonchi, wheezes Cardiovascular exam: PRESENT: RRR. ABSENT: diastolic murmur, rubs, systolic murmur Pulses: PRESENT: normal dorsalis pedis pul Vascular exam: PRESENT: normal capillary refill GI/Abdominal exam: PRESENT: normal bowel sounds, soft. ABSENT: distended, guarding, mass, organolmegaly, rebound, tenderness Rectal exam: PRESENT: deferred Extremities exam: PRESENT: full ROM. ABSENT: calf tenderness, clubbing, pedal edema Neurological exam: PRESENT: alert, awake, oriented to person, CN II-XII grossly intact. ABSENT: motor sensory deficit Psychiatric exam: PRESENT: appropriate affect, normal mood. ABSENT: homicidal ideation, suicidal ideation Skin exam: PRESENT: dry, intact, warm. ABSENT: cyanosis, rash Results Laboratory Results: 09/22/19 22:45 09/22/19 22:45 09/22/19 09/22/19 09/22/19 21:35 22:45 22:45 WBC 7.6 RBC 3.14 L Hgb 9.9 L Hct 29.2 L MCV 93 MCH 31.6 MCHC 33.9 RDW 14.5 H Plt Count 219 Seg Neutrophils % 82.8 H Carbonic Acid HCO3/H2CO3 Ratio ABG pH ABG pCO2 ABG pO2 ABG HCO3 ABG O2 Saturation ABG Base Excess FiO2 Sodium 129.1 L Potassium 4.0 Chloride 94 L Carbon Dioxide 25 Anion Gap 10 BUN 20 Creatinine 0.76 Est GFR ( Amer) > 60 Glucose 130 H Lactic Acid Calcium 8.6 Total Bilirubin 0.4 AST 67 H Alkaline Phosphatase 127 H Total Protein 7.1 Albumin 3.4 L TSH 2.13 Urine Color Urine Appearance Urine pH Ur Specific [place] Urine Protein Urine Glucose (UA) Urine Ketones Urine Blood Urine Nitrite Ur Leukocyte Esterase Urine WBC (Auto) Urine RBC (Auto) 09/22/19 09/22/19 09/22/19 22:45 22:58 23:15 WBC RBC Hgb Hct MCV MCH MCHC RDW Plt Count Seg Neutrophils % Carbonic Acid 1.16 HCO3/H2CO3 Ratio 21:1 ABG pH 7.42 ABG pCO2 38.6 ABG pO2 141.4 H ABG HCO3 24.6 H ABG O2 Saturation 98.9 H ABG Base Excess 0.2 FiO2 3L Sodium Potassium Chloride Carbon Dioxide Anion Gap BUN Creatinine Est GFR ( Amer) Glucose Lactic Acid 1.3 Calcium Total Bilirubin AST Alkaline Phosphatase Total Protein Albumin TSH Urine Color NEO Urine Appearance SLIGHTLY-CLOUDY Urine pH 6.0 Ur Specific [place] 1.018 Urine Protein 100 H Urine Glucose (UA) NEGATIVE Urine Ketones NEGATIVE Urine Blood NEGATIVE Urine Nitrite NEGATIVE Ur Leukocyte Esterase TRACE H Urine WBC (Auto) 23 Urine RBC (Auto) 2 09/22/19 22:45 CK-MB (CK-2) 0.84 Troponin I < 0.012 NT-Pro-B Natriuret Pep 475 H Impressions: Head CT 09/22/19 00:00 IMPRESSION: 1. No acute hemorrhage or mass lesion. 2. Age-related volume loss with extensive white matter changes suggestive of small vessel ischemic disease. The appearance is stable. Chest X-Ray 09/22/19 21:42 IMPRESSION: No acute cardiopulmonary process copyright 2011 [employer]- All Rights Reserved Assessment and Plan - Diagnosis (1) Encephalopathy Is this a current diagnosis for this admission?: Yes Plan: Likely secondary to polypharmacy, follow-up Tegretol level, hold Tegretol, reduce Neurontin by half, discontinue meclizine. (2) Polypharmacy Is this a current diagnosis for this admission?: Yes Plan: Discontinue meclizine, reduce Neurontin (3) Somnolence Is this a current diagnosis for this admission?: Yes Plan: Secondary to #1, supportive care. - Time Time Spent with patient: 25-34 minutes - Inpatient Certification Medical Necessity: Need Close Monitoring Due to Risk of Patient Decompensation
[2019-09-23] MEDS: DILTIAZEM HCL 60 MG TABLET PO SCH ×4 (06:36→23:12)
[2019-09-23] MEDS: HEPARIN SOD (PORCINE) 5,000 UNIT/ML 1 ML VIAL SUBCUT SCH ×3 (06:36→21:44)
[2019-09-23 08:22] LABS: ABSOLUTE EOSINOPHILS # (AUTO) 0.1 10^3/uL (0.0-0.6); ABSOLUTE LYMPHOCYTES (AUTO) 0.8 10^3/uL (0.5-4.7); ABSOLUTE MONOCYTES (AUTO) 0.5 10^3/uL (0.1-1.4); ABSOLUTE NEUT (AUTO) 3.7 10^3/uL (1.7-8.2); BASOPHILS % (AUTO) 0.6 % (0-2); EOSINOPHILS % (AUTO) 1.9 % (0-6); HEMATOCRIT 26.1 % (36.0-47.0); HEMOGLOBIN 8.8 g/dL (12.0-15.5); LYMPHOCYTES % (AUTO) 14.9 % (13-45); MEAN CORPUSCULAR HEMOGLOBIN 31.8 pg (27.0-33.4); MEAN CORPUSCULAR HGB CONC 33.9 g/dL (32.0-36.0); MEAN CORPUSCULAR VOLUME 94 fl (80-97); MONOCYTES % (AUTO) 8.9 % (3-13); PLATELET COUNT 206 10^3/uL (150-450); RED BLOOD COUNT 2.78 10^6/uL (3.72-5.28); RED CELL DISTRIBUTION WIDTH 14.5 % (11.5-14.0); SEGMENTED NEUTROPHILS % (AUTO) 73.7 % (42-78); TOTAL CELLS COUNTED % (AUTO) 100 %; WHITE BLOOD COUNT 5.1 10^3/uL (4.0-10.5)
[2019-09-23 08:53] LABS: ANION GAP 8 (5-19); BLOOD UREA NITROGEN 18 mg/dL (7-20); CALCIUM 8.2 mg/dL (8.4-10.2); CARBON DIOXIDE 24 mmol/L (22-30); CHLORIDE 101 mmol/L (98-107); GLUCOSE 109 mg/dL (75-110); POTASSIUM 3.9 mmol/L (3.6-5.0)
--- NOTE | 2019-09-23 10:03 | PDOC PROGRESS REPORT ---
Subjective Progress Note for:: 09/23/19 Subjective:: Awakens easily. Does attempt to answer questions appropriately. She does provide sensible answers. Denies any pain or discomfort. Reason For Visit: ALTERED MENTAL STATUS Physical Exam Vital Signs: Temp Pulse Resp BP Pulse Ox 98.2 F 63 16 155/69 H 99 09/23/19 08:10 09/23/19 08:25 09/23/19 08:25 09/23/19 08:10 09/23/19 08:25 Intake & Output 09/22/19 09/23/19 09/24/19 06:59 06:59 06:59 Intake Total 1000 1000 Output Total 100 Balance 900 1000 Weight 72 kg General appearance: PRESENT: no acute distress, cooperative, well-developed, well-nourished Head exam: PRESENT: atraumatic, normocephalic Eye exam: PRESENT: conjunctiva pale. ABSENT: scleral icterus Ear exam: PRESENT: normal external ear exam. ABSENT: bleeding, drainage Mouth exam: PRESENT: moist, tongue midline Teeth exam: PRESENT: poor dentation Respiratory exam: PRESENT: clear to auscultation herbert, symmetrical, unlabored. ABSENT: prolonged expiratory phas, rales, rhonchi, tachypnea, wheezes Cardiovascular exam: PRESENT: RRR, +S1, +S2. ABSENT: irregular rhythm GI/Abdominal exam: PRESENT: normal bowel sounds, soft. ABSENT: distended, guarding, tenderness Rectal exam: PRESENT: deferred Extremities exam: ABSENT: joint swelling, pedal edema Musculoskeletal exam: PRESENT: normal inspection. ABSENT: deformity Neurological exam: PRESENT: alert, awake, oriented to person, oriented to place, CN II-XII grossly intact, other - Resting tremor right hand Psychiatric exam: PRESENT: flat affect. ABSENT: agitated, anxious Focused psych exam: ABSENT: delusional, paranoid, restlessness Skin exam: PRESENT: dry, normal color, warm. ABSENT: cyanosis, rash Results Laboratory Results: 09/23/19 07:55 09/23/19 07:55 09/22/19 09/22/19 09/22/19 21:35 22:45 22:45 WBC 7.6 RBC 3.14 L Hgb 9.9 L Hct 29.2 L MCV 93 MCH 31.6 MCHC 33.9 RDW 14.5 H Plt Count 219 Seg Neutrophils % 82.8 H Carbonic Acid HCO3/H2CO3 Ratio ABG pH ABG pCO2 ABG pO2 ABG HCO3 ABG O2 Saturation ABG Base Excess FiO2 Sodium 129.1 L Potassium 4.0 Chloride 94 L Carbon Dioxide 25 Anion Gap 10 BUN 20 Creatinine 0.76 Est GFR ( Amer) > 60 Glucose 130 H Lactic Acid Calcium 8.6 Total Bilirubin 0.4 AST 67 H Alkaline Phosphatase 127 H Ammonia Total Protein 7.1 Albumin 3.4 L TSH 2.13 Urine Color Urine Appearance Urine pH Ur Specific [place] Urine Protein Urine Glucose (UA) Urine Ketones Urine Blood Urine Nitrite Ur Leukocyte Esterase Urine WBC (Auto) Urine RBC (Auto) 09/22/19 09/22/19 09/22/19 22:45 22:58 23:15 WBC RBC Hgb Hct MCV MCH MCHC RDW Plt Count Seg Neutrophils % Carbonic Acid 1.16 HCO3/H2CO3 Ratio 21:1 ABG pH 7.42 ABG pCO2 38.6 ABG pO2 141.4 H ABG HCO3 24.6 H ABG O2 Saturation 98.9 H ABG Base Excess 0.2 FiO2 3L Sodium Potassium Chloride Carbon Dioxide Anion Gap BUN Creatinine Est GFR ( Amer) Glucose Lactic Acid 1.3 Calcium Total Bilirubin AST Alkaline Phosphatase Ammonia Total Protein Albumin TSH Urine Color NEO Urine Appearance SLIGHTLY-CLOUDY Urine pH 6.0 Ur Specific [place] 1.018 Urine Protein 100 H Urine Glucose (UA) NEGATIVE Urine Ketones NEGATIVE Urine Blood NEGATIVE Urine Nitrite NEGATIVE Ur Leukocyte Esterase TRACE H Urine WBC (Auto) 23 Urine RBC (Auto) 2 09/23/19 09/23/19 09/23/19 07:55 07:55 07:55 WBC 5.1 RBC 2.78 L Hgb 8.8 L Hct 26.1 L MCV 94 MCH 31.8 MCHC 33.9 RDW 14.5 H Plt Count 206 Seg Neutrophils % 73.7 Carbonic Acid HCO3/H2CO3 Ratio ABG pH ABG pCO2 ABG pO2 ABG HCO3 ABG O2 Saturation ABG Base Excess FiO2 Sodium 132.7 L Potassium 3.9 Chloride 101 Carbon Dioxide 24 Anion Gap 8 BUN 18 Creatinine 0.60 Est GFR ( Amer) > 60 Glucose 109 Lactic Acid Calcium 8.2 L Total Bilirubin AST Alkaline Phosphatase Ammonia < 8.7 L Total Protein Albumin TSH Urine Color Urine Appearance Urine pH Ur Specific [place] Urine Protein Urine Glucose (UA) Urine Ketones Urine Blood Urine Nitrite Ur Leukocyte Esterase Urine WBC (Auto) Urine RBC (Auto) 09/22/19 22:45 CK-MB (CK-2) 0.84 Troponin I < 0.012 NT-Pro-B Natriuret Pep 475 H Impressions: Head CT 09/22/19 00:00 IMPRESSION: 1. No acute hemorrhage or mass lesion. 2. Age-related volume loss with extensive white matter changes suggestive of small vessel ischemic disease. The appearance is stable. Chest X-Ray 09/22/19 21:42 IMPRESSION: No acute cardiopulmonary process copyright 2011 [employer]- All Rights Reserved Assessment and Plan - Diagnosis (1) Encephalopathy Is this a current diagnosis for this admission?: Yes Plan: Likely secondary to polypharmacy, follow-up Tegretol level, hold Tegretol, reduce Neurontin by half, discontinue meclizine. 09/23/2019 Patient seems to be clearing. Trigger 12 is ongoing since the level was therapeutic. The Neurontin has been reduced to 300 mg twice daily. I did speak to the patient's as he is concerned about the reduced dose due to her trigeminal neuralgia. I explained that we need to find a reason not to sleep 16 to 20 hours a day. She also has underlying dementia and possible Parkinson's disease so there are possibly 3 etiologies contributing to her encephalopathy. Polypharmacy is the one that we can treat. So if the reduction in medication improves her status then this is the most likely cause. (2) Dementia Qualifiers: Dementia type: unspecified type Dementia behavioral disturbance: without behavioral disturbance Qualified Code(s): F03.90 - Unspecified dementia without behavioral disturbance Is this a current diagnosis for this admission?: Yes Plan: 09/23/2019 During her conversation did remind me that the patient does have dementia. As noted above the dementia could be contributing to her increased somnolence as her TSH level was normal. She has a resting tremor that certainly could be Parkinson's which would also be a cause of dementia. Currently multifactorial as it is difficult to isolate one particular pathology. (3) Polypharmacy Is this a current diagnosis for this admission?: Yes Plan: Discontinue meclizine, reduce Neurontin 09/23/2019 Changes as noted above (4) Somnolence Is this a current diagnosis for this admission?: Yes Plan: Secondary to #1, supportive care. 09/23/2019 Preauricular this morning. We will continue to monitor with changes in medication regimen. (5) Abnormal urinalysis Is this a current diagnosis for this admission?: Yes Plan: 09/23/2019 Recently has been on prolonged antibiotic therapy explore for recurrent urinary tract infection ". I did review with him his medical fact that her urinalysis did reflect possible infection. She is however afebrile and has no elevated white blood cell count. I did order a urine culture but this could be asymptomatic bacteriuria and I was explained to the we want to avoid unnecessary exposure to antibiotics to reduce the chance of developing resistant organism. (6) Resting tremor Is this a current diagnosis for this admission?: Yes Plan: 09/23/2019 Continue to observe at this point. It does not seem to be interfering with her daily routine and so the addition of more medications specifically for Parkinson's disease is not an acute need at this time. (7) Trigeminal neuralgia Is this a current diagnosis for this admission?: Yes Plan: 09/23/2019 Chronic and ongoing. Medication changes as noted above. (8) Hyponatremia Is this a current diagnosis for this admission?: Yes Plan: 09/23/2019 This is a chronic and stable condition for this patient. We will continue to monitor sodium. (9) HTN (hypertension) Qualifiers: Hypertension type: essential hypertension Qualified Code(s): I10 - Essential (primary) hypertension Is this a current diagnosis for this admission?: Yes Plan: 09/23/2019 Continue antihypertensives at this time and monitor vital signs. Adjust medications accordingly. (10) Hyperlipidemia Qualifiers: Hyperlipidemia type: unspecified Qualified Code(s): E78.5 - Hyperlipidemia, unspecified Is this a current diagnosis for this admission?: Yes Plan: 09/23/2019 Continue statin therapy (11) Paroxysmal atrial fibrillation Is this a current diagnosis for this admission?: Yes Plan: 09/23/2019 Currently in sinus rhythm with good rate control. Continue current medication regimen. - Time Time Spent with patient: 25-34 minutes - More than half of which was dedicated to discussion with the patient's with regard to the education of her clinical state and changes in treatment. Unfortunately with COVID restrictions he is unable to be at the bedside. Medications reviewed and adjusted accordingly: Yes Anticipated discharge: SNF Disposition: As discussed in a phone call with the patient's (20 minutes in duration) his goal is residential. Have asked physical therapy to assess the patient. She continues with this level of somnolence and is unable to follow direction that residential might not be an option.
[2019-09-23] MEDS: DOCUSATE SODIUM 100 MG CAPSULE PO SCH ×2 (12:46→18:13)
[2019-09-23] MEDS ORDERED: NITROGLYCERIN 0.4 MG/TAB 25 TAB/BOTTLE SL PRN (16:01)
[2019-09-23] MEDS ORDERED: BISACODYL 5 MG TABEC PO ONE (16:13)
[2019-09-23] MEDS ORDERED: BISACODYL 10 MG SUPP.RECT PR ONE (16:13)
[2019-09-23] MEDS: METOPROLOL TARTRATE 25 MG TABLET PO SCH (18:13)
[2019-09-23] MEDS: ATORVASTATIN CALCIUM 40 MG TABLET PO SCH (21:44)
[2019-09-23] MEDS: GABAPENTIN 300 MG CAPSULE PO SCH (21:44)
[2019-09-23] MEDS: CARBAMAZEPINE 200 MG TAB.SR.12H PO SCH (21:44)
[2019-09-24] MEDS: NORMAL SALINE 1000 ML 1,000 ML IV PRN ×2 (02:55→22:07)
[2019-09-24] MEDS: DILTIAZEM HCL 60 MG TABLET PO SCH ×4 (05:10→23:38)
[2019-09-24] MEDS: LEVOTHYROXINE SODIUM 0.05 MG TABLET PO SCH (05:10)
[2019-09-24] MEDS: HEPARIN SOD (PORCINE) 5,000 UNIT/ML 1 ML VIAL SUBCUT SCH ×3 (05:14→22:03)
[2019-09-24 05:54] LABS: ABSOLUTE EOSINOPHILS # (AUTO) 0.1 10^3/uL (0.0-0.6); ABSOLUTE LYMPHOCYTES (AUTO) 0.9 10^3/uL (0.5-4.7); ABSOLUTE MONOCYTES (AUTO) 0.4 10^3/uL (0.1-1.4); ABSOLUTE NEUT (AUTO) 3.7 10^3/uL (1.7-8.2); BASOPHILS % (AUTO) 0.9 % (0-2); EOSINOPHILS % (AUTO) 2.6 % (0-6); HEMATOCRIT 25.8 % (36.0-47.0); HEMOGLOBIN 8.8 g/dL (12.0-15.5); LYMPHOCYTES % (AUTO) 18.1 % (13-45); MEAN CORPUSCULAR HEMOGLOBIN 31.7 pg (27.0-33.4); MEAN CORPUSCULAR VOLUME 93 fl (80-97); MONOCYTES % (AUTO) 7.9 % (3-13); PLATELET COUNT 203 10^3/uL (150-450); RED BLOOD COUNT 2.77 10^6/uL (3.72-5.28); RED CELL DISTRIBUTION WIDTH 14.2 % (11.5-14.0); SEGMENTED NEUTROPHILS % (AUTO) 70.5 % (42-78); TOTAL CELLS COUNTED % (AUTO) 100 %; WHITE BLOOD COUNT 5.2 10^3/uL (4.0-10.5)
[2019-09-24 06:16] LABS: ANION GAP 7 (5-19); BLOOD UREA NITROGEN 14 mg/dL (7-20); CALCIUM 8.2 mg/dL (8.4-10.2); CARBON DIOXIDE 22 mmol/L (22-30); CHLORIDE 105 mmol/L (98-107); GLUCOSE 99 mg/dL (75-110); POTASSIUM 3.6 mmol/L (3.6-5.0)
[2019-09-24] MEDS ORDERED: (PENDING PHARMACY ID) (Rosuvastatin Calcium [Crestor 20 Mg Tablet] 20 MG) PO SCH (10:00)
[2019-09-24] MEDS: DOCUSATE SODIUM 100 MG CAPSULE PO SCH ×2 (10:22→17:32)
[2019-09-24] MEDS: EZETIMIBE 10 MG TABLET PO SCH (10:25)
[2019-09-24] MEDS: LOSARTAN POTASSIUM 50 MG TABLET PO SCH (10:26)
[2019-09-24] MEDS: CARBAMAZEPINE 200 MG TAB.SR.12H PO SCH ×2 (10:26→22:02)
[2019-09-24] MEDS: GABAPENTIN 300 MG CAPSULE PO SCH ×2 (10:26→22:03)
--- NOTE | 2019-09-24 13:57 | PDOC PROGRESS REPORT ---
Subjective Progress Note for:: 09/24/19 Subjective:: Still with significant fatigue. Reason For Visit: AMS Physical Exam Vital Signs: Temp Pulse Resp BP Pulse Ox 98.5 F 92 15 170/74 H 99 09/24/19 12:00 09/24/19 12:00 09/24/19 12:00 09/24/19 12:00 09/24/19 12:00 Intake & Output 09/23/19 09/24/19 09/25/19 06:59 06:59 06:59 Intake Total 1000 3149 Output Total 100 Balance 900 3149 Weight 72 kg 72 kg General appearance: PRESENT: no acute distress, cooperative, well-developed, well-nourished Head exam: PRESENT: atraumatic, normocephalic Mouth exam: PRESENT: moist, tongue midline Respiratory exam: PRESENT: clear to auscultation herbert, symmetrical, unlabored. ABSENT: rales, rhonchi, tachypnea, wheezes Cardiovascular exam: PRESENT: RRR, +S1, +S2 GI/Abdominal exam: PRESENT: normal bowel sounds, soft. ABSENT: distended, guarding, tenderness Rectal exam: PRESENT: deferred Extremities exam: ABSENT: pedal edema Musculoskeletal exam: PRESENT: ambulatory, normal inspection. ABSENT: deformity Neurological exam: PRESENT: alert - Once awake patient is fairly alert and participates in the encounter., awake - Awakens easily to verbal stimulus., oriented to person, oriented to place, oriented to situation Psychiatric exam: PRESENT: flat affect. ABSENT: agitated, anxious Results Laboratory Results: 09/24/19 05:34 09/24/19 05:34 09/24/19 09/24/19 05:34 05:34 WBC 5.2 RBC 2.77 L Hgb 8.8 L Hct 25.8 L MCV 93 MCH 31.7 MCHC 34.0 RDW 14.2 H Plt Count 203 Seg Neutrophils % 70.5 Sodium 133.9 L Potassium 3.6 Chloride 105 Carbon Dioxide 22 Anion Gap 7 BUN 14 Creatinine 0.53 Est GFR ( Amer) > 60 Glucose 99 Calcium 8.2 L Magnesium 1.9 09/22/19 22:45 CK-MB (CK-2) 0.84 Troponin I < 0.012 NT-Pro-B Natriuret Pep 475 H Impressions: Head CT 09/22/19 00:00 IMPRESSION: 1. No acute hemorrhage or mass lesion. 2. Age-related volume loss with extensive white matter changes suggestive of small vessel ischemic disease. The appearance is stable. Chest X-Ray 09/22/19 21:42 IMPRESSION: No acute cardiopulmonary process copyright 2011 [employer]- All Rights Reserved Assessment and Plan - Diagnosis (1) Encephalopathy Is this a current diagnosis for this admission?: Yes Plan: Likely secondary to polypharmacy, follow-up Tegretol level, hold Tegretol, reduce Neurontin by half, discontinue meclizine. 09/23/2019 Patient seems to be clearing. Trigger 12 is ongoing since the level was therapeutic. The Neurontin has been reduced to 300 mg twice daily. I did speak to the patient's as he is concerned about the reduced dose due to her trigeminal neuralgia. I explained that we need to find a reason not to sleep 16 to 20 hours a day. She also has underlying dementia and possible Parkinson's disease so there are possibly 3 etiologies contributing to her encephalopathy. Polypharmacy is the one that we can treat. So if the reduction in medication improves her status then this is the most likely cause. 09/24/2019 As noted above Tegretol was resumed. Neurontin was resumed but at a lower dose. Patient is not complaining of trigeminal neuralgia. Encephalopathy is likely due to polypharmacy however there is underlying dementia and probable Parkinson's but no definitive diagnosis made by neurology at this time according to my discussion with patient's (2) Dementia Qualifiers: Dementia type: unspecified type Dementia behavioral disturbance: without behavioral disturbance Qualified Code(s): F03.90 - Unspecified dementia without behavioral disturbance Is this a current diagnosis for this admission?: Yes Plan: 09/23/2019 During her conversation did remind me that the patient does have dementia. As noted above the dementia could be contributing to her increased somnolence as her TSH level was normal. She has a resting tremor that certainly could be Parkinson's which would also be a cause of dementia. Currently multifactorial as it is difficult to isolate one particular pathology. 09/24/2019 Stable (3) Polypharmacy Is this a current diagnosis for this admission?: Yes Plan: Discontinue meclizine, reduce Neurontin 09/23/2019 Changes as noted above 09/24/2019 Continue reduced medication regimen (4) Somnolence Is this a current diagnosis for this admission?: Yes Plan: Secondary to #1, supportive care. 09/23/2019 Preauricular this morning. We will continue to monitor with changes in medication regimen. 09/24/2019 Still with somnolence. Certainly could be related to dementia and if present Parkinson's disease. I will check a cortisol level as this is the only thing that I have not investigated. (5) Abnormal urinalysis Is this a current diagnosis for this admission?: Yes Plan: 09/23/2019 Recently has been on prolonged antibiotic therapy explore for recurrent urinary tract infection ". I did review with him his medical fact that her urinalysis did reflect possible infection. She is however afebrile and has no elevated white blood cell count. I did order a urine culture but this could be asymptomatic bacteriuria and I was explained to the we want to avoid unnecessary exposure to antibiotics to reduce the chance of developing resistant organism. 09/24/2019 Urine culture pending (6) Resting tremor Is this a current diagnosis for this admission?: Yes Plan: 09/23/2019 Continue to observe at this point. It does not seem to be interfering with her daily routine and so the addition of more medications specifically for Parkinson's disease is not an acute need at this time. 09/24/2019 Possibly Parkinson's. Defer to neurology for further assessment and treatment (7) Trigeminal neuralgia Is this a current diagnosis for this admission?: Yes Plan: 09/23/2019 Chronic and ongoing. Medication changes as noted above. 09/24/2019 Remains asymptomatic. Continue adjusted medication regimen (8) Hyponatremia Is this a current diagnosis for this admission?: Yes Plan: 09/23/2019 This is a chronic and stable condition for this patient. We will continue to monitor sodium. (9) HTN (hypertension) Qualifiers: Hypertension type: essential hypertension Qualified Code(s): I10 - Essential (primary) hypertension Is this a current diagnosis for this admission?: Yes Plan: 09/23/2019 Continue antihypertensives at this time and monitor vital signs. Adjust medications accordingly. 09/24/2019 Blood pressure still varies but better in general is acceptable. (10) Hyperlipidemia Qualifiers: Hyperlipidemia type: unspecified Qualified Code(s): E78.5 - Hyperlipidemia, unspecified Is this a current diagnosis for this admission?: Yes Plan: 09/23/2019 Continue statin therapy (11) Paroxysmal atrial fibrillation Is this a current diagnosis for this admission?: Yes Plan: 09/23/2019 Currently in sinus rhythm with good rate control. Continue current medication regimen. - Time Time Spent with patient: 15-24 minutes Medications reviewed and adjusted accordingly: Yes Anticipated discharge: SNF
[2019-09-24] MEDS: METOPROLOL TARTRATE 25 MG TABLET PO SCH (17:43)
[2019-09-24] MEDS: ATORVASTATIN CALCIUM 40 MG TABLET PO SCH (22:03)
[2019-09-25] MEDS: LEVOTHYROXINE SODIUM 0.05 MG TABLET PO SCH (06:01)
[2019-09-25] MEDS: HEPARIN SOD (PORCINE) 5,000 UNIT/ML 1 ML VIAL SUBCUT SCH ×3 (06:01→21:14)
[2019-09-25] MEDS: DILTIAZEM HCL 60 MG TABLET PO SCH ×3 (06:01→17:32)
[2019-09-25] MEDS: NORMAL SALINE 1000 ML 1,000 ML IV PRN ×3 (06:01→21:23)
[2019-09-25] MEDS: DOCUSATE SODIUM 100 MG CAPSULE PO SCH ×2 (09:44→17:07)
[2019-09-25] MEDS: LOSARTAN POTASSIUM 50 MG TABLET PO SCH (09:47)
[2019-09-25] MEDS: CARBAMAZEPINE 200 MG TAB.SR.12H PO SCH ×2 (09:47→21:19)
[2019-09-25] MEDS: GABAPENTIN 300 MG CAPSULE PO SCH ×2 (09:47→21:17)
[2019-09-25] MEDS: EZETIMIBE 10 MG TABLET PO SCH (09:47)
--- NOTE | 2019-09-25 13:03 | PDOC PROGRESS REPORT ---
Subjective Progress Note for:: 09/25/19 Subjective:: Patient is actually sitting up in the chair today while awake. She does have a bewildered look on her face. When I asked if she felt that she was less tired during the day she was not able to provide an answer. I also informed her that I had just gotten off the phone with her and son. Otherwise she has no new complaints today. Reason For Visit: AMS Physical Exam Vital Signs: Temp Pulse Resp BP Pulse Ox 98.5 F 85 12 160/70 H 96 09/25/19 10:53 09/25/19 10:53 09/25/19 10:53 09/25/19 12:42 09/25/19 10:53 Intake & Output 09/24/19 09/25/19 09/26/19 06:59 06:59 06:59 Intake Total 3149 2348 200 Balance 3149 2348 200 Weight 72 kg 72 kg General appearance: PRESENT: no acute distress, cooperative, well-developed Head exam: PRESENT: atraumatic, normocephalic Eye exam: PRESENT: conjunctiva pale. ABSENT: scleral icterus Ear exam: PRESENT: normal external ear exam. ABSENT: bleeding, drainage Mouth exam: PRESENT: dry mucosa, tongue midline Respiratory exam: PRESENT: clear to auscultation herbert, symmetrical, unlabored. ABSENT: rales, rhonchi, tachypnea, wheezes Cardiovascular exam: PRESENT: RRR, +S1, +S2, systolic murmur - 2/6. ABSENT: diastolic murmur, irregular rhythm, tachycardia GI/Abdominal exam: PRESENT: normal bowel sounds, soft. ABSENT: distended, guarding, tenderness Rectal exam: PRESENT: deferred Extremities exam: PRESENT: pedal edema Musculoskeletal exam: PRESENT: ambulatory - Per physical therapy's notes, normal inspection Neurological exam: PRESENT: alert, awake, oriented to person Psychiatric exam: PRESENT: unusual affect - Has a bewildered countenance. ABSENT: agitated, anxious Results Laboratory Results: 09/24/19 05:34 09/24/19 05:34 09/22/19 22:45 CK-MB (CK-2) 0.84 Troponin I < 0.012 NT-Pro-B Natriuret Pep 475 H Impressions: Head CT 09/22/19 00:00 IMPRESSION: 1. No acute hemorrhage or mass lesion. 2. Age-related volume loss with extensive white matter changes suggestive of small vessel ischemic disease. The appearance is stable. Chest X-Ray 09/22/19 21:42 IMPRESSION: No acute cardiopulmonary process copyright 2011 [employer]- All Rights Reserved Assessment and Plan - Diagnosis (1) Encephalopathy Is this a current diagnosis for this admission?: Yes Plan: Likely secondary to polypharmacy, follow-up Tegretol level, hold Tegretol, reduce Neurontin by half, discontinue meclizine. 09/23/2019 Patient seems to be clearing. Trigger 12 is ongoing since the level was therapeutic. The Neurontin has been reduced to 300 mg twice daily. I did speak to the patient's as he is concerned about the reduced dose due to her trigeminal neuralgia. I explained that we need to find a reason not to sleep 16 to 20 hours a day. She also has underlying dementia and possible Parkinson's disease so there are possibly 3 etiologies contributing to her encephalopathy. Polypharmacy is the one that we can treat. So if the reduction in medication improves her status then this is the most likely cause. 09/24/2019 As noted above Tegretol was resumed. Neurontin was resumed but at a lower dose. Patient is not complaining of trigeminal neuralgia. Encephalopathy is likely due to polypharmacy however there is underlying dementia and probable Parkinson's but no definitive diagnosis made by neurology at this time according to my discussion with patient's 09/25/2019 I believe the acute portion of the encephalopathy has passed and this is her baseline. (2) Dementia Qualifiers: Dementia type: unspecified type Dementia behavioral disturbance: without behavioral disturbance Qualified Code(s): F03.90 - Unspecified dementia without behavioral disturbance Is this a current diagnosis for this admission?: Yes Plan: 09/23/2019 During her conversation did remind me that the patient does have dementia. As noted above the dementia could be contributing to her increased somnolence as her TSH level was normal. She has a resting tremor that certainly could be Parkinson's which would also be a cause of dementia. Currently multifactorial as it is difficult to isolate one particular pathology. 09/24/2019 Stable 09/25/2019 Still very nebulous with attempts to answer questions today. I believe her somnolence is masked the extent of her memory loss. Continue current regimen. (3) Polypharmacy Is this a current diagnosis for this admission?: Yes Plan: Discontinue meclizine, reduce Neurontin 09/23/2019 Changes as noted above 09/24/2019 Continue reduced medication regimen (4) Somnolence Is this a current diagnosis for this admission?: Yes Plan: Secondary to #1, supportive care. 09/23/2019 Preauricular this morning. We will continue to monitor with changes in medication regimen. 09/24/2019 Still with somnolence. Certainly could be related to dementia and if present Parkinson's disease. I will check a cortisol level as this is the only thing that I have not investigated. 09/25/2019 Her morning cortisol level was not low. Therefore adrenal insufficiency is not contributing to her condition. (5) Abnormal urinalysis Is this a current diagnosis for this admission?: Yes Plan: 09/23/2019 Recently has been on prolonged antibiotic therapy explore for recurrent urinary tract infection ". I did review with him his medical fact that her urinalysis did reflect possible infection. She is however afebrile and has no elevated white blood cell count. I did order a urine culture but this could be asymptomatic bacteriuria and I was explained to the we want to avoid unnecessary exposure to antibiotics to reduce the chance of developing resistant organism. 09/24/2019 Urine culture pending 09/25/2019 Urine cultures growing gram-positive cocci in chains. This may likely be a group B strep which then low amounts is not clinically significant. We will continue to hold antibiotics at this time as the patient remains afebrile and has normal white blood cell count. (6) Resting tremor Is this a current diagnosis for this admission?: Yes Plan: 09/23/2019 Continue to observe at this point. It does not seem to be interfering with her daily routine and so the addition of more medications specifically for Parkinson's disease is not an acute need at this time. 09/24/2019 Possibly Parkinson's. Defer to neurology for further assessment and treatment 09/25/2019 As above. (7) Trigeminal neuralgia Is this a current diagnosis for this admission?: Yes Plan: 09/23/2019 Chronic and ongoing. Medication changes as noted above. 09/24/2019 Remains asymptomatic. Continue adjusted medication regimen 09/25/2019 As above (8) Hyponatremia Is this a current diagnosis for this admission?: Yes Plan: 09/23/2019 This is a chronic and stable condition for this patient. We will continue to monitor sodium. 09/25/2019 Sodium remains stable (9) HTN (hypertension) Qualifiers: Hypertension type: essential hypertension Qualified Code(s): I10 - Essential (primary) hypertension Is this a current diagnosis for this admission?: Yes Plan: 09/23/2019 Continue antihypertensives at this time and monitor vital signs. Adjust medications accordingly. 09/24/2019 Blood pressure still varies but better in general is acceptable. 09/25/2019 Blood pressures are higher today. I will add hydrochlorothiazide to the losartan. I will also add a as needed IV hydralazine ordered. (10) Hyperlipidemia Qualifiers: Hyperlipidemia type: unspecified Qualified Code(s): E78.5 - Hyperlipidemia, unspecified Is this a current diagnosis for this admission?: Yes Plan: 09/23/2019 Continue statin therapy (11) Paroxysmal atrial fibrillation Is this a current diagnosis for this admission?: Yes Plan: 09/23/2019 Currently in sinus rhythm with good rate control. Continue current medication regimen. - Plan Summary Summary: 09/25/2019 He did have a detailed discussion with the patient's Adrián and her son Marie. Because the patient is responding to physical therapy I suggested that short-term rehab would be appropriate to try and maximize her recovery. We did discuss long-term plans. If the patient does not respond to physical therapy or begins to decline then the family will likely pursue hospice. They have already reached out to continue on hospice to gather information. The patient remains DO NOT RESUSCITATE. We will attempt short-term rehab in the hopes that she does improve her exercise capacity and balance. If she begins to decline then I strongly recommended, and the family has begun to investigate, hospice level care. - Time Time Spent with patient: 25-34 minutes Medications reviewed and adjusted accordingly: Yes Anticipated discharge: SNF
[2019-09-25] MEDS: METOPROLOL TARTRATE 25 MG TABLET PO SCH (17:31)
[2019-09-25] MEDS: HYDROCHLOROTHIAZIDE 25 MG TABLET PO SCH (17:32)
--- NOTE | 2019-09-25 18:07 | ADVANCED CARE ---
- Diagnosis (1) Encephalopathy Diagnosis Current: Yes (2) Dementia Diagnosis Current: Yes (3) Polypharmacy Diagnosis Current: Yes (4) Somnolence Diagnosis Current: Yes (5) Abnormal urinalysis Diagnosis Current: Yes (6) Resting tremor Diagnosis Current: Yes (7) Trigeminal neuralgia Diagnosis Current: Yes (8) Hyponatremia Diagnosis Current: Yes (9) HTN (hypertension) Diagnosis Current: Yes (10) Hyperlipidemia Diagnosis Current: Yes (11) Paroxysmal atrial fibrillation Diagnosis Current: Yes Attendance: Due to COVID restrictions the discussion was held over the phone with patient's Adrián when the patient's son Pat. As the patient has dementia the patient was not part of the discussion. Resuscitation Status: Do Not Resuscitate Discussion: The discussion revolved around the disposition and next site of care. The renetta ent was just recently discharged. She represented with similar complaints. With her underlying dementia and age she is sensitive to medications and it is felt that some of her somnolence is related to polypharmacy. Mild decreasing the medication regimen has not brought about a significant change in the patient's status we then reviewed the likelihood that underlying diseases such as dementia and the probability of her having Parkinson's could contribute to increased somnolence during the day as well as weakness and confusion. The patient's son, according to review of the discharge planning notes, and his sister are on board with enrolling the patient in hospice. They have reached out to [facility]. [facility]. This would be an optimal setting. The patient is responding to physical therapy. It is the general believe that the patient's does not appreciate the gravity of her condition and he still feels that he can take care of her at home. The patient's son does not think this is possible. Because she is responding to physical therapy we feel it is reasonable to transition to long-term facility to try and achieve the best outcome as possible. This would in fact improve the quality of her life. If that fails or if there is success but she then declines it makes the most sense to enroll the patient in hospice. As noted above the patient's son is in agreement and he did indicate that he is working on getting his father to understand. Evidently there are also insurance issues with regard to hospice care that they are addressing. Care Planning Goals: Establish unified disposition plan for ongoing care after hospitalization Document(s) Completed: None Time Spent: 25 minutes
[2019-09-25] MEDS: ATORVASTATIN CALCIUM 40 MG TABLET PO SCH (21:17)
[2019-09-26] MEDS: LEVOTHYROXINE SODIUM 0.05 MG TABLET PO SCH (05:09)
[2019-09-26] MEDS: HEPARIN SOD (PORCINE) 5,000 UNIT/ML 1 ML VIAL SUBCUT SCH ×3 (05:10→22:58)
[2019-09-26] MEDS: DILTIAZEM HCL 60 MG TABLET PO SCH ×3 (05:10→11:43)
[2019-09-26] MEDS: HYDRALAZINE HCL INJ/PF 20 MG/1 ML SDV IV PRN (05:13)
[2019-09-26] MEDS: LOSARTAN POTASSIUM 50 MG TABLET PO SCH (09:11)
[2019-09-26] MEDS: DOCUSATE SODIUM 100 MG CAPSULE PO SCH ×2 (09:11→17:05)
[2019-09-26] MEDS: GABAPENTIN 300 MG CAPSULE PO SCH ×2 (09:13→22:58)
[2019-09-26] MEDS: HYDROCHLOROTHIAZIDE 25 MG TABLET PO SCH (09:15)
[2019-09-26] MEDS: EZETIMIBE 10 MG TABLET PO SCH (09:16)
[2019-09-26] MEDS: CARBAMAZEPINE 200 MG TAB.SR.12H PO SCH ×2 (09:16→22:58)
[2019-09-26] MEDS: NORMAL SALINE 1000 ML 1,000 ML IV PRN ×2 (09:17→17:04)
--- NOTE | 2019-09-26 10:36 | PDOC TRANSFER SUMMARY ---
Impression - Admit/DC Date/PCP Admission Date/Primary Care Provider: 09/23/19 02:41 BENOIT DUPONT MD Discharge Date: 09/26/19 - Discharge Diagnosis (1) Encephalopathy Is this a current diagnosis for this admission?: Yes (2) Dementia Is this a current diagnosis for this admission?: Yes (3) Polypharmacy Is this a current diagnosis for this admission?: Yes (4) Somnolence Is this a current diagnosis for this admission?: Yes (5) Abnormal urinalysis Is this a current diagnosis for this admission?: Yes (6) Resting tremor Is this a current diagnosis for this admission?: Yes (7) Trigeminal neuralgia Is this a current diagnosis for this admission?: Yes (8) Hyponatremia Is this a current diagnosis for this admission?: Yes (9) HTN (hypertension) Is this a current diagnosis for this admission?: Yes (10) Hyperlipidemia Is this a current diagnosis for this admission?: Yes (11) Paroxysmal atrial fibrillation Is this a current diagnosis for this admission?: Yes - Assessment Summary: 09/25/2019 He did have a detailed discussion with the patient's Adrián and her son Marie. Because the patient is responding to physical therapy I suggested that short-term rehab would be appropriate to try and maximize her recovery. We did discuss long-term plans. If the patient does not respond to physical therapy or begins to decline then the family will likely pursue hospice. They have already reached out to continue on hospice to gather information. The patient remains DO NOT RESUSCITATE. We will attempt short-term rehab in the hopes that she does improve her exercise capacity and balance. If she begins to decline then I strongly recommended, and the family has begun to investigate, hospice level care. - Additional Information Resuscitation Status: Do Not Resuscitate Referrals: BENOIT DUPONT MD [Primary Care Provider] - Follow up as needed Home Medications: Ezetimibe [Zetia 10 mg Tablet] 10 mg PO DAILY 06/14/17 Gabapentin [Neurontin 300 mg Capsule] 300 mg PO Q8 06/14/17 Levothyroxine Sodium [Synthroid] 50 mcg PO Q6AM 06/14/17 Losartan Potassium [Cozaar 100 mg Tablet] 100 mg PO DAILY 06/14/17 Metoprolol Tartrate [Lopressor 25 mg Tablet] 25 mg PO QPM 06/14/17 Rosuvastatin Calcium [Crestor 20 mg Tablet] 20 mg PO DAILY 06/14/17 Nitroglycerin [Nitrostat 0.4 mg (1/150 Gr) Tabs 25/Bottle] 1 tab SL Q5MP PRN 09/12/19 Carbamazepine [Tegretol Xr 200 mg Tab.sr] 200 mg PO Q12 30 Days #60 tab.sr.12h 09/15/19 Cephalexin Monohydrate [Keflex 125 mg/5 ml Susp] 125 mg PO Q8 3 Days #100 ml 09/15/19 Diltiazem HCl [Cardizem 60 mg Tablet] 60 mg PO ASDIR PRN 09/23/19 History of Present Illiness History of Present Illness: CHARLES LEBRON is a 83 year old female Physical Exam Vital Signs: Temp Pulse Resp BP Pulse Ox 98.9 F 105 H 17 174/77 H 98 09/26/19 04:35 09/26/19 08:13 09/26/19 08:13 09/26/19 08:13 09/26/19 08:13 Intake & Output 09/25/19 09/26/19 09/27/19 06:59 06:59 06:59 Intake Total 2348 3266 Output Total 300 Balance 2348 2966 Weight 72 kg 72 kg Respiratory exam: PRESENT: clear to auscultation herbert - Anteriorly, symmetrical, unlabored. ABSENT: rales, rhonchi, tachypnea, wheezes Cardiovascular exam: PRESENT: irregular rhythm, RRR, +S1, +S2, systolic murmur - 3/6. ABSENT: diastolic murmur GI/Abdominal exam: PRESENT: normal bowel sounds, soft. ABSENT: distended, guarding, tenderness Extremities exam: PRESENT: pedal edema, +1 edema Musculoskeletal exam: PRESENT: ambulatory - With a walker. ABSENT: deformity Neurological exam: PRESENT: alert, awake, oriented to person Results Laboratory Results: WBC 5.2 10^3/uL (4.0-10.5) 09/24/19 05:34 RBC 2.77 10^6/uL (3.72-5.28) L 09/24/19 05:34 Hgb 8.8 g/dL (12.0-15.5) L 09/24/19 05:34 Hct 25.8 % (36.0-47.0) L 09/24/19 05:34 MCV 93 fl (80-97) 09/24/19 05:34 MCH 31.7 pg (27.0-33.4) 09/24/19 05:34 MCHC 34.0 g/dL (32.0-36.0) 09/24/19 05:34 RDW 14.2 % (11.5-14.0) H 09/24/19 05:34 Plt Count 203 10^3/uL (150-450) 09/24/19 05:34 Lymph % (Auto) 18.1 % (13-45) 09/24/19 05:34 [place] % (Auto) 7.9 % (3-13) 09/24/19 05:34 Eos % (Auto) 2.6 % (0-6) 09/24/19 05:34 Baso % (Auto) 0.9 % (0-2) 09/24/19 05:34 Absolute Neuts (auto) 3.7 10^3/uL (1.7-8.2) 09/24/19 05:34 Absolute Lymphs (auto) 0.9 10^3/uL (0.5-4.7) 09/24/19 05:34 Absolute Monos (auto) 0.4 10^3/uL (0.1-1.4) 09/24/19 05:34 Absolute Eos (auto) 0.1 10^3/uL (0.0-0.6) 09/24/19 05:34 Absolute Basos (auto) 0.0 10^3/uL (0.0-0.2) 09/24/19 05:34 Seg Neutrophils % 70.5 % (42-78) 09/24/19 05:34 PT 14.7 SEC (11.4-15.4) 09/22/19 22:45 INR 1.14 09/22/19 22:45 D-Dimer 5.21 ug/mL (0.00-0.50) H 09/22/19 22:45 Carbonic Acid 1.16 mmol/L (1.05-1.35) 09/22/19 22:58 HCO3/H2CO3 Ratio 21:1 09/22/19 22:58 ABG pH 7.42 (7.35-7.45) 09/22/19 22:58 ABG pCO2 38.6 mmHg (35-45) 09/22/19 22:58 ABG pO2 141.4 mmHg (80-100) H 09/22/19 22:58 ABG HCO3 24.6 mmol/L (20-24) H 09/22/19 22:58 ABG Total CO2 25.8 mmol/L (21-25) H 09/22/19 22:58 ABG O2 Saturation 98.9 % (94-98) H 09/22/19 22:58 ABG Base Excess 0.2 mmol/L 09/22/19 22:58 FiO2 3L 09/22/19 22:58 Sodium 133.9 mmol/L (137-145) L 09/24/19 05:34 Potassium 3.6 mmol/L (3.6-5.0) 09/24/19 05:34 Chloride 105 mmol/L (98-107) 09/24/19 05:34 Carbon Dioxide 22 mmol/L (22-30) 09/24/19 05:34 Anion Gap 7 (5-19) 09/24/19 05:34 BUN 14 mg/dL (7-20) 09/24/19 05:34 Creatinine 0.53 mg/dL (0.52-1.25) 09/24/19 05:34 Est GFR ( Amer) > 60 (>60) 09/24/19 05:34 Est GFR (MDRD) Non-Af > 60 (>60) 09/24/19 05:34 Glucose 99 mg/dL (75-110) 09/24/19 05:34 Lactic Acid 1.3 mmol/L (0.7-2.1) 09/22/19 22:45 Calcium 8.2 mg/dL (8.4-10.2) L 09/24/19 05:34 Magnesium 1.9 mg/dL (1.6-2.3) 09/24/19 05:34 Total Bilirubin 0.4 mg/dL (0.2-1.3) 09/22/19 22:45 Direct Bilirubin 0.1 mg/dL (0.0-0.4) 09/22/19 22:45 Neonat Total Bilirubin Not Reportable 09/22/19 22:45 Neonat Direct Bilirubin Not Reportable 09/22/19 22:45 Neonat Indirect Bili Not Reportable 09/22/19 22:45 AST 67 U/L (14-36) H 09/22/19 22:45 ALT 55 U/L (<35) H 09/22/19 22:45 Alkaline Phosphatase 127 U/L (38-126) H 09/22/19 22:45 Ammonia < 8.7 umol/L (9-33) L 09/23/19 07:55 CK-MB (CK-2) 0.84 ng/mL (<4.55) 09/22/19 22:45 Troponin I < 0.012 ng/mL 09/22/19 22:45 NT-Pro-B Natriuret Pep 475 pg/mL (<450) H 09/22/19 22:45 Total Protein 7.1 g/dL (6.3-8.2) 09/22/19 22:45 Albumin 3.4 g/dL (3.5-5.0) L 09/22/19 22:45 TSH 2.13 uIU/mL (0.47-4.68) 09/22/19 21:35 Cortisol AM Sample 24.70 ug/dL (4.46-22.7) H 09/25/19 04:52 Urine Color NEO 09/22/19 23:15 Urine Appearance SLIGHTLY-CLOUDY 09/22/19 23:15 Urine pH 6.0 (5.0-9.0) 09/22/19 23:15 Ur Specific [place] 1.018 09/22/19 23:15 Urine Protein 100 mg/dL (NEGATIVE) H 09/22/19 23:15 Urine Glucose (UA) NEGATIVE mg/dL (NEGATIVE) 09/22/19 23:15 Urine Ketones NEGATIVE mg/dL (NEGATIVE) 09/22/19 23:15 Urine Blood NEGATIVE (NEGATIVE) 09/22/19 23:15 Urine Nitrite NEGATIVE (NEGATIVE) 09/22/19 23:15 Urine Bilirubin NEGATIVE (NEGATIVE) 09/22/19 23:15 Urine Urobilinogen NEGATIVE mg/dL (<2.0) 09/22/19 23:15 Ur Leukocyte Esterase TRACE (NEGATIVE) H 09/22/19 23:15 Urine WBC (Auto) 23 /HPF 09/22/19 23:15 Urine RBC (Auto) 2 /HPF 09/22/19 23:15 U Hyaline Cast (Auto) 1 /LPF 09/22/19 23:15 Urine Bacteria (Auto) 2+ /HPF 09/22/19 23:15 Squamous Epi Cells Auto <1 /HPF 09/22/19 23:15 Urine Mucus (Auto) FEW /LPF 09/22/19 23:15 Urine Ascorbic Acid NEGATIVE (NEGATIVE) 09/22/19 23:15 Carbamazepine 8.4 ug/mL (4.0-12.0) 09/23/19 07:55 09/22/19 22:45 CK-MB (CK-2) 0.84 Troponin I < 0.012 NT-Pro-B Natriuret Pep 475 H Impressions: Head CT 09/22/19 00:00 IMPRESSION: 1. No acute hemorrhage or mass lesion. 2. Age-related volume loss with extensive white matter changes suggestive of small vessel ischemic disease. The appearance is stable. Chest X-Ray 09/22/19 21:42 IMPRESSION: No acute cardiopulmonary process copyright 2011 [employer]- All Rights Reserved
--- NOTE | 2019-09-26 13:53 | PDOC PROGRESS REPORT ---
Subjective Progress Note for:: 09/26/19 Subjective:: The patient awakens easily this morning. There are no new complaints. Nursing does not report any problems through the night. Reason For Visit: AMS Physical Exam Vital Signs: Temp Pulse Resp BP Pulse Ox 99.6 F 108 H 17 158/67 H 98 09/26/19 11:17 09/26/19 11:17 09/26/19 11:17 09/26/19 11:17 09/26/19 11:17 Intake & Output 09/25/19 09/26/19 09/27/19 06:59 06:59 06:59 Intake Total 2348 3266 25 Output Total 300 Balance 2348 2966 25 Weight 72 kg 72 kg General appearance: PRESENT: no acute distress, cooperative, well-developed Head exam: PRESENT: atraumatic, normocephalic Ear exam: PRESENT: normal external ear exam. ABSENT: bleeding, drainage Respiratory exam: PRESENT: clear to auscultation herbert - Anteriorly, symmetrical, unlabored. ABSENT: decreased breath sounds, rales, rhonchi, tachypnea, wheezes Cardiovascular exam: PRESENT: RRR, +S1, +S2, systolic murmur - 3/6 GI/Abdominal exam: PRESENT: normal bowel sounds, soft. ABSENT: distended, guarding, tenderness Rectal exam: PRESENT: deferred Extremities exam: PRESENT: pedal edema Musculoskeletal exam: PRESENT: ambulatory Neurological exam: PRESENT: alert, awake, oriented to person Psychiatric exam: PRESENT: flat affect. ABSENT: agitated, anxious Results Laboratory Results: 09/24/19 05:34 09/24/19 05:34 09/22/19 22:45 CK-MB (CK-2) 0.84 Troponin I < 0.012 NT-Pro-B Natriuret Pep 475 H Impressions: Head CT 09/22/19 00:00 IMPRESSION: 1. No acute hemorrhage or mass lesion. 2. Age-related volume loss with extensive white matter changes suggestive of small vessel ischemic disease. The appearance is stable. Chest X-Ray 09/22/19 21:42 IMPRESSION: No acute cardiopulmonary process copyright 2011 [employer]- All Rights Reserved Assessment and Plan - Diagnosis (1) Encephalopathy Is this a current diagnosis for this admission?: Yes Plan: Likely secondary to polypharmacy, follow-up Tegretol level, hold Tegretol, reduce Neurontin by half, discontinue meclizine. 09/23/2019 Patient seems to be clearing. Trigger 12 is ongoing since the level was therapeutic. The Neurontin has been reduced to 300 mg twice daily. I did speak to the patient's as he is concerned about the reduced dose due to her trigeminal neuralgia. I explained that we need to find a reason not to sleep 16 to 20 hours a day. She also has underlying dementia and possible Parkinson's disease so there are possibly 3 etiologies contributing to her encephalopathy. Polypharmacy is the one that we can treat. So if the reduction in medication improves her status then this is the most likely cause. 09/24/2019 As noted above Tegretol was resumed. Neurontin was resumed but at a lower dose. Patient is not complaining of trigeminal neuralgia. Encephalopathy is likely due to polypharmacy however there is underlying dementia and probable Parkinson's but no definitive diagnosis made by neurology at this time according to my discussion with patient's 09/25/2019 I believe the acute portion of the encephalopathy has passed and this is her baseline. 09/26/2019 At baseline (2) Dementia Qualifiers: Dementia type: unspecified type Dementia behavioral disturbance: without behavioral disturbance Qualified Code(s): F03.90 - Unspecified dementia without behavioral disturbance Is this a current diagnosis for this admission?: Yes Plan: 09/23/2019 During her conversation did remind me that the patient does have dementia. As noted above the dementia could be contributing to her increased somnolence as her TSH level was normal. She has a resting tremor that certainly could be Parkinson's which would also be a cause of dementia. Currently multifactorial as it is difficult to isolate one particular pathology. 09/24/2019 Stable 09/25/2019 Still very nebulous with attempts to answer questions today. I believe her somnolence is masked the extent of her memory loss. Continue current regimen. 09/26/2019 At baseline. No new interventions. (3) Polypharmacy Is this a current diagnosis for this admission?: Yes Plan: Discontinue meclizine, reduce Neurontin 09/23/2019 Changes as noted above 09/24/2019 Continue reduced medication regimen (4) Somnolence Is this a current diagnosis for this admission?: Yes Plan: Secondary to #1, supportive care. 09/23/2019 Preauricular this morning. We will continue to monitor with changes in medication regimen. 09/24/2019 Still with somnolence. Certainly could be related to dementia and if present Parkinson's disease. I will check a cortisol level as this is the only thing that I have not investigated. 09/25/2019 Her morning cortisol level was not low. Therefore adrenal insufficiency is not contributing to her condition. 09/26/2019 Continue with the reduced medication regimen (5) Abnormal urinalysis Is this a current diagnosis for this admission?: Yes Plan: 09/23/2019 Recently has been on prolonged antibiotic therapy explore for recurrent urinary tract infection ". I did review with him his medical fact that her urinalysis did reflect possible infection. She is however afebrile and has no elevated white blood cell count. I did order a urine culture but this could be asymptomatic bacteriuria and I was explained to the we want to avoid unnecessary exposure to antibiotics to reduce the chance of developing resistant organism. 09/24/2019 Urine culture pending 09/25/2019 Urine cultures growing gram-positive cocci in chains. This may likely be a group B strep which then low amounts is not clinically significant. We will con tinue to hold antibiotics at this time as the patient remains afebrile and has normal white blood cell count. 09/26/2019 Gram-positive cocci in chains. Final identification pending. (6) Resting tremor Is this a current diagnosis for this admission?: Yes Plan: 09/23/2019 Continue to observe at this point. It does not seem to be interfering with her daily routine and so the addition of more medications specifically for Parkinson's disease is not an acute need at this time. 09/24/2019 Possibly Parkinson's. Defer to neurology for further assessment and treatment 09/25/2019 As above. 09/26/2019 Most likely parkinsonian. No acute intervention at this time. (7) Trigeminal neuralgia Is this a current diagnosis for this admission?: Yes Plan: 09/23/2019 Chronic and ongoing. Medication changes as noted above. 09/24/2019 Remains asymptomatic. Continue adjusted medication regimen 09/25/2019 As above 09/26/2019 Continue current regimen (8) Hyponatremia Is this a current diagnosis for this admission?: Yes Plan: 09/23/2019 This is a chronic and stable condition for this patient. We will continue to monitor sodium. 09/25/2019 Sodium remains stable (9) HTN (hypertension) Qualifiers: Hypertension type: essential hypertension Qualified Code(s): I10 - Essential (primary) hypertension Is this a current diagnosis for this admission?: Yes Plan: 09/23/2019 Continue antihypertensives at this time and monitor vital signs. Adjust medications accordingly. 09/24/2019 Blood pressure still varies but better in general is acceptable. 09/25/2019 Blood pressures are higher today. I will add hydrochlorothiazide to the losartan. I will also add a as needed IV hydralazine ordered. 09/26/2019 Blood pressures have been consistently higher. No change diltiazem to 180 mg twice daily. (10) Hyperlipidemia Qualifiers: Hyperlipidemia type: unspecified Qualified Code(s): E78.5 - Hyperlipidemia, unspecified Is this a current diagnosis for this admission?: Yes Plan: 09/23/2019 Continue statin therapy (11) Paroxysmal atrial fibrillation Is this a current diagnosis for this admission?: Yes Plan: 09/23/2019 Currently in sinus rhythm with good rate control. Continue current medication r egimen. 09/26/2019 Heart rate and blood pressure have been up lately. Diltiazem has been increased to the long-acting formula at 180 mg twice daily. - Plan Summary Summary: 09/25/2019 He did have a detailed discussion with the patient's Adrián and her son Marie. Because the patient is responding to physical therapy I suggested that short-term rehab would be appropriate to try and maximize her recovery. We did discuss long-term plans. If the patient does not respond to physical therapy or begins to decline then the family will likely pursue hospice. They have already reached out to continue on hospice to gather information. The patient remains DO NOT RESUSCITATE. We will attempt short-term rehab in the hopes that she does improve her exercise capacity and balance. If she begins to decline then I strongly recommended, and the family has begun to investigate, hospice level care. - Time Time Spent with patient: 15-24 minutes Medications reviewed and adjusted accordingly: Yes Anticipated discharge: SNF Within: within 72 hours - pending prescreening COVID testing
[2019-09-26] MEDS: METOPROLOL TARTRATE 25 MG TABLET PO SCH (17:04)
[2019-09-26] MEDS: ATORVASTATIN CALCIUM 40 MG TABLET PO SCH (22:58)
[2019-09-26] MEDS: DILTIAZEM HCL 180 MG CAPSULE.CR PO SCH (22:58)
[2019-09-27] MEDS: NORMAL SALINE 1000 ML 1,000 ML IV PRN ×3 (00:44→18:24)
[2019-09-27] MEDS: HYDRALAZINE HCL INJ/PF 20 MG/1 ML SDV IV PRN (00:58)
[2019-09-27] MEDS: LEVOTHYROXINE SODIUM 0.05 MG TABLET PO SCH (05:25)
[2019-09-27] MEDS: HEPARIN SOD (PORCINE) 5,000 UNIT/ML 1 ML VIAL SUBCUT SCH ×3 (05:33→22:33)
[2019-09-27] MEDS: DOCUSATE SODIUM 100 MG CAPSULE PO SCH ×2 (10:32→18:28)
[2019-09-27] MEDS: EZETIMIBE 10 MG TABLET PO SCH (10:32)
[2019-09-27] MEDS: GABAPENTIN 300 MG CAPSULE PO SCH ×2 (10:32→22:34)
[2019-09-27] MEDS: LOSARTAN POTASSIUM 50 MG TABLET PO SCH (10:32)
[2019-09-27] MEDS: DILTIAZEM HCL 180 MG CAPSULE.CR PO SCH ×2 (10:32→22:34)
[2019-09-27] MEDS: HYDROCHLOROTHIAZIDE 25 MG TABLET PO SCH (10:32)
[2019-09-27] MEDS: CARBAMAZEPINE 200 MG TAB.SR.12H PO SCH ×2 (10:32→22:35)
--- NOTE | 2019-09-27 11:52 | PDOC PROGRESS REPORT ---
Subjective Progress Note for:: 09/27/19 Subjective:: Sitting up in the chair. In my opinion she is more awake and alert by decreasing her medications. Reason For Visit: AMS Physical Exam Vital Signs: Temp Pulse Resp BP Pulse Ox 99.0 F 108 H 17 167/64 H 97 09/27/19 07:29 09/27/19 07:29 09/27/19 07:29 09/27/19 07:29 09/27/19 07:29 Intake & Output 09/26/19 09/27/19 09/28/19 06:59 06:59 06:59 Intake Total 3266 1995 1000 Output Total 300 Balance 2966 1995 1000 Weight 72 kg 64.6 kg Results Laboratory Results: 09/24/19 05:34 09/24/19 05:34 09/22/19 22:45 CK-MB (CK-2) 0.84 Troponin I < 0.012 NT-Pro-B Natriuret Pep 475 H Impressions: Head CT 09/22/19 00:00 IMPRESSION: 1. No acute hemorrhage or mass lesion. 2. Age-related volume loss with extensive white matter changes suggestive of small vessel ischemic disease. The appearance is stable. Chest X-Ray 09/22/19 21:42 IMPRESSION: No acute cardiopulmonary process copyright 2011 [employer]- All Rights Reserved Assessment and Plan - Diagnosis (1) VRE (vancomycin-resistant Enterococci) infection Is this a current diagnosis for this admission?: Yes Plan: 09/27/2019 Urine culture results finally came back. Unfortunately it was vancomycin- resistant enterococci. I will place the patient on Zyvox. Luckily she is managing with her oral medications and the oral formulation gets the same bioavailability as the IV form. (2) Encephalopathy Is this a current diagnosis for this admission?: Yes Plan: Likely secondary to polypharmacy, follow-up Tegretol level, hold Tegretol, reduce Neurontin by half, discontinue meclizine. 09/23/2019 Patient seems to be clearing. Trigger 12 is ongoing since the level was thera peutic. The Neurontin has been reduced to 300 mg twice daily. I did speak to the patient's as he is concerned about the reduced dose due to her trigeminal neuralgia. I explained that we need to find a reason not to sleep 16 to 20 hours a day. She also has underlying dementia and possible Parkinson's disease so there are possibly 3 etiologies contributing to her encephalopathy. Polypharmacy is the one that we can treat. So if the reduction in medication improves her status then this is the most likely cause. 09/24/2019 As noted above Tegretol was resumed. Neurontin was resumed but at a lower dose. Patient is not complaining of trigeminal neuralgia. Encephalopathy is likely due to polypharmacy however there is underlying dementia and probable Parkinson's but no definitive diagnosis made by neurology at this time according to my discussion with patient's 09/25/2019 I believe the acute portion of the encephalopathy has passed and this is her baseline. 09/26/2019 At baseline 09/27/2019 It does appear that day today she is slightly more awake than the day before. Certainly more than when she was admitted. It is hard to know where this will speak. We will continue the same regimen as she is on now with a slightly reduced gabapentin level as this seems to be controlling her trigeminal neuralgia and her encephalopathy has improved. (3) Dementia Qualifiers: Dementia type: unspecified type Dementia behavioral disturbance: without behavioral disturbance Qualified Code(s): F03.90 - Unspecified dementia without behavioral disturbance Is this a current diagnosis for this admission?: Yes Plan: 09/23/2019 During her conversation did remind me that the patient does have dementia. As noted above the dementia could be contributing to her increased somnolence as her TSH level was normal. She has a resting tremor that certainly could be Parkinson's which would also be a cause of dementia. Currently mu ltifactorial as it is difficult to isolate one particular pathology. 09/24/2019 Stable 09/25/2019 Still very nebulous with attempts to answer questions today. I believe her somnolence is masked the extent of her memory loss. Continue current regimen. 09/26/2019 At baseline. No new interventions. (4) Polypharmacy Is this a current diagnosis for this admission?: Yes Plan: Discontinue meclizine, reduce Neurontin 09/23/2019 Changes as noted above 09/24/2019 Continue reduced medication regimen (5) Somnolence Is this a current diagnosis for this admission?: Yes Plan: Secondary to #1, supportive care. 09/23/2019 Preauricular this morning. We will continue to monitor with changes in medication regimen. 09/24/2019 Still with somnolence. Certainly could be related to dementia and if present Parkinson's disease. I will check a cortisol level as this is the only thing that I have not investigated. 09/25/2019 Her morning cortisol level was not low. Therefore adrenal insufficiency is not contributing to her condition. 09/26/2019 Continue with the reduced medication regimen 09/27/2019 As noted above she does appear to be improving slightly each day with the alterations in medication. (6) Abnormal urinalysis Is this a current diagnosis for this admission?: Yes Plan: 09/23/2019 Recently has been on prolonged antibiotic therapy explore for recurrent urinary tract infection ". I did review with him his medical fact that her urinalysis did reflect possible infection. She is however afebrile and has no elevated white blood cell count. I did order a urine culture but this could be asy mptomatic bacteriuria and I was explained to the we want to avoid unnecessary exposure to antibiotics to reduce the chance of developing resistant organism. 09/24/2019 Urine culture pending 09/25/2019 Urine cultures growing gram-positive cocci in chains. This may likely be a group B strep which then low amounts is not clinically significant. We will continue to hold antibiotics at this time as the patient remains afebrile and has normal white blood cell count. 09/26/2019 Gram-positive cocci in chains. Final identification pending. 09/27/2019 Unfortunately urine culture was positive for vancomycin-resistant enterococci. Treatment plan as above. (7) Resting tremor Is this a current diagnosis for this admission?: Yes Plan: 09/23/2019 Continue to observe at this point. It does not seem to be interfering with her daily routine and so the addition of more medications specifically for Parkinson's disease is not an acute need at this time. 09/24/2019 Possibly Parkinson's. Defer to neurology for further assessment and treatment 09/25/2019 As above. 09/26/2019 Most likely parkinsonian. No acute intervention at this time. (8) Trigeminal neuralgia Is this a current diagnosis for this admission?: Yes Plan: 09/23/2019 Chronic and ongoing. Medication changes as noted above. 09/24/2019 Remains asymptomatic. Continue adjusted medication regimen 09/25/2019 As above 09/26/2019 Continue current regimen (9) Hyponatremia Is this a current diagnosis for this admission?: Yes Plan: 09/23/2019 This is a chronic and stable condition for this patient. We will continue to monitor sodium. 09/25/2019 Sodium remains stable (10) HTN (hypertension) Qualifiers: Hypertension type: essential hypertension Qualified Code(s): I10 - Essential (primary) hypertension Is this a current diagnosis for this admission?: Yes Plan: 09/23/2019 Continue antihypertensives at this time and monitor vital signs. Adjust medications accordingly. 09/24/2019 Blood pressure still varies but better in general is acceptable. 09/25/2019 Blood pressures are higher today. I will add hydrochlorothiazide to the losartan. I will also add a as needed IV hydralazine ordered. 09/26/2019 Blood pressures have been consistently higher. No change diltiazem to 180 mg twice daily. 09/27/2019 The addition of hydrochlorothiazide to the losartan has brought the pressure down slightly. With pulse rate still marginally high I will increase the metoprolol. (11) Hyperlipidemia Qualifiers: Hyperlipidemia type: unspecified Qualified Code(s): E78.5 - Hyperlipidemia, unspecified Is this a current diagnosis for this admission?: Yes Plan: 09/23/2019 Continue statin therapy (12) Paroxysmal atrial fibrillation Is this a current diagnosis for this admission?: Yes Plan: 09/23/2019 Currently in sinus rhythm with good rate control. Continue current medication regimen. 09/26/2019 Heart rate and blood pressure have been up lately. Diltiazem has been increased to the long-acting formula at 180 mg twice daily. 09/27/2019 Metoprolol increased as above - Plan Summary Summary: 09/25/2019 He did have a detailed discussion with the patient's Adrián and her son Marie. Because the patient is responding to physical therapy I suggested that short-term rehab would be appropriate to try and maximize her recovery. We did discuss long-term plans. If the patient does not respond to physical therapy or begins to decline then the family will likely pursue hospice. They have already reached out to continue on hospice to gather information. The patient remains DO NOT RESUSCITATE. We will attempt short-term rehab in the hopes that she does improve her exercise capacity and balance. If she begins to decline then I strongly recommended, and the family has begun to investigate, hospice level care. 09/27/2019 I did speak to the patient's Savanna as well as her son and daughter. They are aware of the positive urine culture. The plan [facility]. - Time Time Spent with patient: 25-34 minutes Medications reviewed and adjusted accordingly: Yes Anticipated discharge: SNF Within: within 72 hours
[2019-09-27] MEDS ORDERED: LINEZOLID 600 MG TABLET ONE (17:44)
[2019-09-27] MEDS ORDERED: METOPROLOL SUCCINATE 25 MG TAB.SR.24H PO ONE (18:00)
[2019-09-27] MEDS: LINEZOLID 600 MG TABLET PO SCH (18:28)
[2019-09-27] MEDS: ATORVASTATIN CALCIUM 40 MG TABLET PO SCH (22:34)
[2019-09-28] MEDS: NORMAL SALINE 1000 ML 1,000 ML IV PRN ×3 (02:43→23:15)
[2019-09-28] MEDS: LEVOTHYROXINE SODIUM 0.05 MG TABLET PO SCH (05:49)
[2019-09-28] MEDS: LINEZOLID 600 MG TABLET PO SCH ×2 (05:49→17:09)
[2019-09-28] MEDS: HEPARIN SOD (PORCINE) 5,000 UNIT/ML 1 ML VIAL SUBCUT SCH ×4 (05:49→21:48)
[2019-09-28] MEDS: LOSARTAN POTASSIUM 50 MG TABLET PO SCH (10:19)
[2019-09-28] MEDS: DOCUSATE SODIUM 100 MG CAPSULE PO SCH ×2 (10:20→17:11)
[2019-09-28] MEDS: GABAPENTIN 300 MG CAPSULE PO SCH ×2 (10:21→21:48)
[2019-09-28] MEDS: METOPROLOL SUCCINATE 50 MG TAB.SR.24H PO SCH (10:21)
[2019-09-28] MEDS: CARBAMAZEPINE 200 MG TAB.SR.12H PO SCH ×2 (10:22→21:49)
[2019-09-28] MEDS: DILTIAZEM HCL 180 MG CAPSULE.CR PO SCH ×2 (10:22→21:47)
[2019-09-28] MEDS: EZETIMIBE 10 MG TABLET PO SCH (10:22)
[2019-09-28] MEDS: HYDROCHLOROTHIAZIDE 25 MG TABLET PO SCH (10:23)
--- NOTE | 2019-09-28 12:24 | PDOC PROGRESS REPORT ---
Subjective Progress Note for:: 09/28/19 Subjective:: The patient in fact initiated the conversation when I entered the room. This is the first time she has done this. When I left she also told me to "have a good day ". Each day she seems to be more and more responsive. Reason For Visit: AMS Physical Exam Vital Signs: Temp Pulse Resp BP Pulse Ox 98.4 F 72 16 159/68 H 100 09/28/19 12:00 09/28/19 12:00 09/28/19 12:00 09/28/19 12:00 09/28/19 12:00 Intake & Output 09/27/19 09/28/19 09/29/19 06:59 06:59 06:59 Intake Total 1995 3170 967 Balance 1995 3170 967 Weight 64.6 kg 65.5 kg General appearance: PRESENT: no acute distress, cooperative, well-developed Head exam: PRESENT: atraumatic, normocephalic Eye exam: PRESENT: conjunctiva pale. ABSENT: scleral icterus Ear exam: PRESENT: normal external ear exam. ABSENT: bleeding, drainage Mouth exam: PRESENT: moist, tongue midline Respiratory exam: PRESENT: clear to auscultation herbert, symmetrical, unlabored. ABSENT: prolonged expiratory phas, rales, tachypnea, wheezes Cardiovascular exam: PRESENT: RRR, +S1, +S2, systolic murmur. ABSENT: diastolic murmur, irregular rhythm GI/Abdominal exam: PRESENT: normal bowel sounds, soft. ABSENT: distended, guarding, tenderness Rectal exam: PRESENT: deferred Extremities exam: PRESENT: pedal edema Neurological exam: PRESENT: alert, awake, oriented to person Psychiatric exam: PRESENT: flat affect. ABSENT: agitated, anxious Skin exam: PRESENT: dry, pallor, warm. ABSENT: rash Results Laboratory Results: 09/24/19 05:34 09/24/19 05:34 09/24/19 11:19 Clean Catch Midstream Urine Culture - Final E.faecium Vre 09/22/19 22:45 CK-MB (CK-2) 0.84 Troponin I < 0.012 NT-Pro-B Natriuret Pep 475 H Impressions: Head CT 09/22/19 00:00 IMPRESSION: 1. No acute hemorrhage or mass lesion. 2. Age-related volume loss with extensive white matter changes suggestive of small vessel ischemic disease. The appearance is stable. Chest X-Ray 09/22/19 21:42 IMPRESSION: No acute cardiopulmonary process copyright 2011 [employer]- All Rights Reserved Assessment and Plan - Diagnosis (1) VRE (vancomycin-resistant Enterococci) infection Is this a current diagnosis for this admission?: Yes Plan: 09/27/2019 Urine culture results finally came back. Unfortunately it was vancomycin- resistant enterococci. I will place the patient on Zyvox. Luckily she is managing with her oral medications and the oral formulation gets the same bioavailability as the IV form. 09/28/2019 Continue Zyvox (2) Encephalopathy Is this a current diagnosis for this admission?: Yes Plan: Likely secondary to polypharmacy, follow-up Tegretol level, hold Tegretol, reduce Neurontin by half, discontinue meclizine. 09/23/2019 Patient seems to be clearing. Trigger 12 is ongoing since the level was therapeutic. The Neurontin has been reduced to 300 mg twice daily. I did speak to the patient's as he is concerned about the reduced dose due to her trigeminal neuralgia. I explained that we need to find a reason not to sleep 16 to 20 hours a day. She also has underlying dementia and possible Parkinson's disease so there are possibly 3 etiologies contributing to her encephalopathy. Polypharmacy is the one that we can treat. So if the reduction in medication improves her status then this is the most likely cause. 09/24/2019 As noted above Tegretol was resumed. Neurontin was resumed but at a lower dose. Patient is not complaining of trigeminal neuralgia. Encephalopathy is likely due to polypharmacy however there is underlying kayleen ia and probable Parkinson's but no definitive diagnosis made by neurology at this time according to my discussion with patient's 09/25/2019 I believe the acute portion of the encephalopathy has passed and this is her baseline. 09/26/2019 At baseline 09/27/2019 It does appear that day today she is slightly more awake than the day before. Certainly more than when she was admitted. It is hard to know where this will speak. We will continue the same regimen as she is on now with a slightly r educed gabapentin level as this seems to be controlling her trigeminal neuralgia and her encephalopathy has improved. 09/28/2019 Slight improvement each day (3) Dementia Qualifiers: Dementia type: unspecified type Dementia behavioral disturbance: without behavioral disturbance Qualified Code(s): F03.90 - Unspecified dementia without behavioral disturbance Is this a current diagnosis for this admission?: Yes Plan: 09/23/2019 During her conversation did remind me that the patient does have dementia. As noted above the dementia could be contributing to her increased somnolence as her TSH level was normal. She has a resting tremor that certainly could be Parkinson's which would also be a cause of dementia. Currently multifactorial as it is difficult to isolate one particular pathology. 09/24/2019 Stable 09/25/2019 Still very nebulous with attempts to answer questions today. I believe her somnolence is masked the extent of her memory loss. Continue current regimen. 09/26/2019 At baseline. No new interventions. 09/28/2019 No new medications. No changes. (4) Polypharmacy Is this a current diagnosis for this admission?: Yes Plan: Discontinue meclizine, reduce Neurontin 09/23/2019 Changes as noted above 09/24/2019 Continue reduced medication regimen 09/28/2019 Benefiting from the new regimen (5) Somnolence Is this a current diagnosis for this admission?: Yes Plan: Secondary to #1, supportive care. 09/23/2019 Preauricular this morning. We will continue to monitor with changes in med ication regimen. 09/24/2019 Still with somnolence. Certainly could be related to dementia and if present Parkinson's disease. I will check a cortisol level as this is the only thing that I have not investigated. 09/25/2019 Her morning cortisol level was not low. Therefore adrenal insufficiency is not contributing to her condition. 09/26/2019 Continue with the reduced medication regimen 09/27/2019 As noted above she does appear to be improving slightly each day with the alterations in medication. 09/28/2019 Again improved from yesterday (6) Abnormal urinalysis Is this a current diagnosis for this admission?: Yes Plan: 09/23/2019 Recently has been on prolonged antibiotic therapy explore for recurrent urinary tract infection ". I did review with him his medical fact that her urinalysis did reflect possible infection. She is however afebrile and has no elevated white blood cell count. I did order a urine culture but this could be asymptomatic bacteriuria and I was explained to the we want to avoid unnecessary exposure to antibiotics to reduce the chance of developing resistant organism. 09/24/2019 Urine culture pending 09/25/2019 Urine cultures growing gram-positive cocci in chains. This may likely be a group B strep which then low amounts is not clinically significant. We will continue to hold antibiotics at this time as the patient remains afebrile and has normal white blood cell count. 09/26/2019 Gram-positive cocci in chains. Final identification pending. 09/27/2019 Unfortunately urine culture was positive for vancomycin-resistant enterococci. Treatment plan as above. (7) Resting tremor Is this a current diagnosis for this admission?: Yes Plan: 09/23/2019 Continue to observe at this point. It does not seem to be interfering with her daily routine and so the addition of more medications specifically for Parkinson's disease is not an acute need at this time. 09/24/2019 Possibly Parkinson's. Defer to neurology for further assessment and treatment 09/25/2019 As above. 09/26/2019 Most likely parkinsonian. No acute intervention at this time. (8) Trigeminal neuralgia Is this a current diagnosis for this admission?: Yes Plan: 09/23/2019 Chronic and ongoing. Medication changes as noted above. 09/24/2019 Remains asymptomatic. Continue adjusted medication regimen 09/25/2019 As above 09/26/2019 Continue current regimen (9) Hyponatremia Is this a current diagnosis for this admission?: Yes Plan: 09/23/2019 This is a chronic and stable condition for this patient. We will continue to monitor sodium. 09/25/2019 Sodium remains stable (10) HTN (hypertension) Qualifiers: Hypertension type: essential hypertension Qualified Code(s): I10 - Essential (primary) hypertension Is this a current diagnosis for this admission?: Yes Plan: 09/23/2019 Continue antihypertensives at this time and monitor vital signs. Adjust medications accordingly. 09/24/2019 Blood pressure still varies but better in general is acceptable. 09/25/2019 Blood pressures are higher today. I will add hydrochlorothiazide to the losartan. I will also add a as needed IV hydralazine ordered. 09/26/2019 Blood pressures have been consistently higher. No change diltiazem to 180 mg twice daily. 09/27/2019 The addition of hydrochlorothiazide to the losartan has brought the pressure down slightly. With pulse rate still marginally high I will increase the metoprolol. 09/28/2019 We will continue to monitor before making any additional changes (11) Hyperlipidemia Qualifiers: Hyperlipidemia type: unspecified Qualified Code(s): E78.5 - Hyperlipidemia, unspecified Is this a current diagnosis for this admission?: Yes Plan: 09/23/2019 Continue statin therapy (12) Paroxysmal atrial fibrillation Is this a current diagnosis for this admission?: Yes Plan: 09/23/2019 Currently in sinus rhythm with good rate control. Continue current medication regimen. 09/26/2019 Heart rate and blood pressure have been up lately. Diltiazem has been increased to the long-acting formula at 180 mg twice daily. 09/27/2019 Metoprolol increased as above (13) Anemia Qualifiers: Anemia type: iron deficiency Iron deficiency anemia type: inadequate dietary iron intake Qualified Code(s): D50.8 - Other iron deficiency anemias Is this a current diagnosis for this admission?: Yes Plan: 09/28/2019 Patient's appetite has been poor. Anemia is most likely due to iron deficiency. We will add an iron supplement and see if she tolerates it. - Plan Summary Summary: 09/25/2019 He did have a detailed discussion with the patient's Adrián and her son Marie. Because the patient is responding to physical therapy I suggested that short-term rehab would be appropriate to try and maximize her recovery. We did discuss long-term plans. If the patient does not respond to physical therapy or begins to decline then the family will likely pursue hospice. They have already reached out to continue on hospice to gather information. The patient remains DO NOT RESUSCITATE. We will attempt short-term rehab in the hopes that she does improve her exercise capacity and balance. If she begins to decline then I strongly recommended, and the family has begun to investigate, hospice level care. 09/27/2019 I did speak to the patient's Adrián as well as her son and daughter. They are aware of the positive urine culture. The plan is still to transition to senior care. - Time Time Spent with patient: 15-24 minutes Medications reviewed and adjusted accordingly: Yes Anticipated discharge: SNF
[2019-09-28] MEDS ORDERED: FERROUS SULFATE LIQUID 300 MG/5 ML UDC ONE (18:39)
[2019-09-28] MEDS: FERROUS SULFATE LIQUID 300 MG/5 ML UDC PO SCH (18:49)
[2019-09-28] MEDS: ATORVASTATIN CALCIUM 40 MG TABLET PO SCH (21:47)
[2019-09-29] MEDS: LINEZOLID 600 MG TABLET PO SCH ×2 (06:03→17:10)
[2019-09-29] MEDS: LEVOTHYROXINE SODIUM 0.05 MG TABLET PO SCH (06:03)
[2019-09-29] MEDS: HEPARIN SOD (PORCINE) 5,000 UNIT/ML 1 ML VIAL SUBCUT SCH ×2 (06:04→14:00)
[2019-09-29 06:09] LABS: ABSOLUTE BASOPHILS # (AUTO) 0.1 10^3/uL (0.0-0.2); ABSOLUTE EOSINOPHILS # (AUTO) 0.1 10^3/uL (0.0-0.6); ABSOLUTE LYMPHOCYTES (AUTO) 0.6 10^3/uL (0.5-4.7); ABSOLUTE MONOCYTES (AUTO) 0.4 10^3/uL (0.1-1.4); ABSOLUTE NEUT (AUTO) 5.3 10^3/uL (1.7-8.2); BASOPHILS % (AUTO) 1.1 % (0-2); EOSINOPHILS % (AUTO) 1.2 % (0-6); HEMATOCRIT 26.6 % (36.0-47.0); HEMOGLOBIN 9.2 g/dL (12.0-15.5); LYMPHOCYTES % (AUTO) 9.1 % (13-45); MEAN CORPUSCULAR HEMOGLOBIN 31.7 pg (27.0-33.4); MEAN CORPUSCULAR HGB CONC 34.8 g/dL (32.0-36.0); MEAN CORPUSCULAR VOLUME 91 fl (80-97); MONOCYTES % (AUTO) 6.1 % (3-13); PLATELET COUNT 248 10^3/uL (150-450); RED BLOOD COUNT 2.92 10^6/uL (3.72-5.28); RED CELL DISTRIBUTION WIDTH 14.4 % (11.5-14.0); SEGMENTED NEUTROPHILS % (AUTO) 82.5 % (42-78); TOTAL CELLS COUNTED % (AUTO) 100 %; WHITE BLOOD COUNT 6.4 10^3/uL (4.0-10.5)
[2019-09-29 06:26] LABS: ANION GAP 8 (5-19); BLOOD UREA NITROGEN 4 mg/dL (7-20); CALCIUM 8.1 mg/dL (8.4-10.2); CARBON DIOXIDE 29 mmol/L (22-30); CHLORIDE 95 mmol/L (98-107); GLUCOSE 104 mg/dL (75-110)
[2019-09-29 06:29] LABS: POTASSIUM 2.4 mmol/L (3.6-5.0)
[2019-09-29] MEDS: NORMAL SALINE 1000 ML 1,000 ML IV PRN (07:40)
[2019-09-29] MEDS: MAGNESIUM SULFATE 1 GM/D5W 100 ML IV SCH ×2 (07:44→15:35)
[2019-09-29] MEDS: POTASSIUM CHLORIDE 20 MEQ PACKET PO SCH ×3 (07:45→16:44)
[2019-09-29] MEDS ORDERED: MAGNESIUM SULFATE 4 GM/100 ML RTUPB IV ONE (08:27)
[2019-09-29] MEDS ORDERED: POTASSI CL 20 MEQ/50 ML RIDER 20 MEQ/50 ML RTUPB IV SCH (08:28)
[2019-09-29] MEDS: FERROUS SULFATE LIQUID 300 MG/5 ML UDC PO SCH ×2 (09:20→17:10)
[2019-09-29] MEDS: DILTIAZEM HCL 180 MG CAPSULE.CR PO SCH (09:21)
[2019-09-29] MEDS: CARBAMAZEPINE 200 MG TAB.SR.12H PO SCH (09:24)
[2019-09-29] MEDS: EZETIMIBE 10 MG TABLET PO SCH (09:26)
[2019-09-29] MEDS: DOCUSATE SODIUM 100 MG CAPSULE PO SCH (09:26)
[2019-09-29] MEDS: HYDROCHLOROTHIAZIDE 25 MG TABLET PO SCH (09:26)
[2019-09-29] MEDS: METOPROLOL SUCCINATE 50 MG TAB.SR.24H PO SCH (09:27)
[2019-09-29] MEDS: GABAPENTIN 300 MG CAPSULE PO SCH (09:27)
[2019-09-29] MEDS: LOSARTAN POTASSIUM 50 MG TABLET PO SCH (09:27)
[2019-09-29] MEDS: POTASSIUM CHLORIDE 20 MEQ/50 ML RTU IV SCH ×2 (09:28→11:58)
--- NOTE | 2019-09-29 13:39 | PDOC TRANSFER SUMMARY ---
Impression - Admit/DC Date/PCP Admission Date/Primary Care Provider: 09/23/19 02:41 BENOIT DUPONT MD Discharge Date: 09/29/19 - Discharge Diagnosis (1) VRE (vancomycin-resistant Enterococci) infection Is this a current diagnosis for this admission?: Yes (2) Encephalopathy Is this a current diagnosis for this admission?: Yes (3) Dementia Is this a current diagnosis for this admission?: Yes (4) Polypharmacy Is this a current diagnosis for this admission?: Yes (5) Somnolence Is this a current diagnosis for this admission?: Yes (6) Abnormal urinalysis Is this a current diagnosis for this admission?: Yes (7) Resting tremor Is this a current diagnosis for this admission?: Yes (8) Trigeminal neuralgia Is this a current diagnosis for this admission?: Yes (9) Hyponatremia Is this a current diagnosis for this admission?: Yes (10) HTN (hypertension) Is this a current diagnosis for this admission?: Yes (11) Hyperlipidemia Is this a current diagnosis for this admission?: Yes (12) Paroxysmal atrial fibrillation Is this a current diagnosis for this admission?: Yes (13) Anemia Is this a current diagnosis for this admission?: Yes (14) Hypokalemia Is this a current diagnosis for this admission?: Yes - Assessment Summary: 09/25/2019 He did have a detailed discussion with the patient's Adrián and her son Marie. Because the patient is responding to physical therapy I suggested that short-term rehab would be appropriate to try and maximize her recovery. We did discuss long-term plans. If the patient does not respond to physical therapy or begins to decline then the family will likely pursue hospice. They have already reached out to continue on hospice to gather information. The patient remains DO NOT RESUSCITATE. We will attempt short-term rehab in the hopes that she does improve her exercise capacity and balance. If she begins to decline then I strongly recommended, and the family has begun to investigate, hospice level care. 09/27/2019 I did speak to the patient's Adrián as well as her son and daughter. They are aware of the positive urine culture. The plan is still to transition to care home. - Additional Information Resuscitation Status: Do Not Resuscitate Discharge Diet: Cardiac Discharge Activity: Activity As Tolerated Referrals: BENOIT DUPONT MD [Primary Care Provider] - Follow up as needed Home Medications: Ezetimibe [Zetia 10 mg Tablet] 10 mg PO DAILY 06/14/17 Levothyroxine Sodium [Synthroid] 50 mcg PO Q6AM 06/14/17 Losartan Potassium [Cozaar 100 mg Tablet] 100 mg PO DAILY 06/14/17 Rosuvastatin Calcium [Crestor 20 mg Tablet] 20 mg PO DAILY 06/14/17 Nitroglycerin [Nitrostat 0.4 mg (1/150 Gr) Tabs 25/Bottle] 1 tab SL Q5MP PRN 09/12/19 Carbamazepine [Tegretol Xr 200 mg Tab.sr] 200 mg PO Q12 30 Days #60 tab.sr.12h 09/15/19 Diltiazem HCl [Cardizem Cd 180 mg Capsule] 180 mg PO Q12 capsule.cr 09/29/19 Docusate Sodium [Colace 100 mg Capsule] 100 mg PO BID capsule 09/29/19 Ferrous Sulfate [Ferrous Sulfate Liquid 300 mg/5 ml Udcup] 300 mg PO BID udc 09/29/19 Gabapentin [Neurontin 300 mg Capsule] 300 mg PO Q12 capsule 09/29/19 Hydrochlorothiazide [Hydrodiuril 25 mg Tablet] 25 mg PO DAILY tablet 09/29/19 Linezolid [Zyvox 600 mg Tablet] 600 mg PO Q12A tablet 09/29/19 Metoprolol Succinate [Toprol Xl 50 mg Tab.sr] 50 mg PO DAILY tab.sr.24h 09/29/19 Potassium Chloride [Potassium Chloride 20 Meq Packet] 40 meq PO MEALS packet 09/29/19 History of Present Illiness History of Present Illness: CHARLES LEBRON is a 83 year old female with a past medical history of hypertension, chronic dizziness, trigeminal neuralgia, paroxysmal atrial fibrillation, orthostatic hypotension, dementia and recurrent encephalopathy. Complicated by recent hospitalization for UTI, by polypharmacy with Tegretol, Neurontin, meclizine and moderate dementia. History is obtained by the record. Per nursing notes and interview family statements suggest she sleeps 20 hours/day awakens with pain takes her medications and goes back to sleep. She presents after having questionable seizure-like activity. In the emergency room she denies complaint. No seizure activity or injury is revealed. Her work-up reveals mild hyponatremia of 129. She is asleep but arousable, denying pain and socially appropriate. She is unaware of her home medication regiment. Hospital Course Hospital Course: The patient had a complicated hospital course. - Diagnosis (1) VRE (vancomycin-resistant Enterococci) infection Is this a current diagnosis for this admission?: Yes Plan: 09/27/2019 Urine culture results finally came back. Unfortunately it was vancomycin- resistant enterococci. I will place the patient on Zyvox. Luckily she is managing with her oral medications and the oral formulation gets the same bioavailability as the IV form. 09/28/2019 Continue Zyvox (2) Encephalopathy Is this a current diagnosis for this admission?: Yes Plan: Likely secondary to polypharmacy, follow-up Tegretol level, hold Tegretol, reduce Neurontin by half, discontinue meclizine. 09/23/2019 Patient seems to be clearing. Trigger 12 is ongoing since the level was therapeutic. The Neurontin has been reduced to 300 mg twice daily. I did speak to the patient's as he is concerned about the reduced dose due to her trigeminal neuralgia. I explained that we need to find a reason not to sleep 16 to 20 hours a day. She also has underlying dementia and possible Parkinson's disease so there are possibly 3 etiologies contributing to her encephalopathy. Polypharmacy is the one that we can treat. So if the reduction in medication improves her status then this is the most likely cause. 09/24/2019 As noted above Tegretol was resumed. Neurontin was resumed but at a lower dose. Patient is not complaining of trigeminal neuralgia. Encephalopathy is likely due to polypharmacy however there is underlying dementia and probable Parkinson's but no definitive diagnosis made by neurology at this time according to my discussion with patient's 09/25/2019 I believe the acute portion of the encephalopathy has passed and this is her baseline. 09/26/2019 At baseline 09/27/2019 It does appear that day today she is slightly more awake than the day before. Certainly more than when she was admitted. It is hard to know where this will speak. We will continue the same regimen as she is on now with a slightly reduced gabapentin level as this seems to be controlling her trigeminal neuralgia and her encephalopathy has improved. 09/28/2019 Slight improvement each day (3) Dementia Qualifiers: Dementia type: unspecified type Dementia behavioral disturbance: without behavioral disturbance Qualified Code(s): F03.90 - Unspecified dementia without behavioral disturbance Is this a current diagnosis for this admission?: Yes Plan: 09/23/2019 During her conversation did remind me that the patient does have dementia. As noted above the dementia could be contributing to her increased somnolence as her TSH level was normal. She has a resting tremor that certainly could be Parkinson's which would also be a cause of dementia. Currently multi factorial as it is difficult to isolate one particular pathology. 09/24/2019 Stable 09/25/2019 Still very nebulous with attempts to answer questions today. I believe her somnolence is masked the extent of her memory loss. Continue current regimen. 09/26/2019 At baseline. No new interventions. 09/28/2019 No new medications. No changes. (4) Polypharmacy Is this a current diagnosis for this admission?: Yes Plan: Discontinue meclizine, reduce Neurontin 09/23/2019 Changes as noted above 09/24/2019 Continue reduced medication regimen 09/28/2019 Benefiting from the new regimen (5) Somnolence Is this a current diagnosis for this admission?: Yes Plan: Secondary to #1, supportive care. 09/23/2019 Preauricular this morning. We will continue to monitor with changes in medication regimen. 09/24/2019 Still with somnolence. Certainly could be related to dementia and if present Parkinson's disease. I will check a cortisol level as this is the only thing that I have not investigated. 09/25/2019 Her morning cortisol level was not low. Therefore adrenal insufficiency is not contributing to her condition. 09/26/2019 Continue with the reduced medication regimen 09/27/2019 As noted above she does appear to be improving slightly each day with the alterations in medication. 09/28/2019 Again improved from yesterday (6) Abnormal urinalysis Is this a current diagnosis for this admission?: Yes Plan: 09/23/2019 Recently has been on prolonged antibiotic therapy explore for recurrent urinary tract infection ". I did review with him his medical fact that her urinalysis did reflect possible infection. She is however afebrile and has no elevated white blood cell count. I did order a urine culture but this could be asymptomatic bacteriuria and I was explained to the we want to avoid unnecessary exposure to antibiotics to reduce the chance of developing resistant organism. 09/24/2019 Urine culture pending 09/25/2019 Urine cultures growing gram-positive cocci in chains. This may likely be a group B strep which then low amounts is not clinically significant. We will continue to hold antibiotics at this time as the patient remains afebrile and has normal white blood cell count. 09/26/2019 Gram-positive cocci in chains. Final identification pending. 09/27/2019 Unfortunately urine culture was positive for vancomycin-resistant enterococci. Treatment plan as above. (7) Resting tremor Is this a current diagnosis for this admission?: Yes Plan: 09/23/2019 Continue to observe at this point. It does not seem to be interfering with her daily routine and so the addition of more medications specifically for Parkinson's disease is not an acute need at this time. 09/24/2019 Possibly Parkinson's. Defer to neurology for further assessment and treatment 09/25/2019 As above. 09/26/2019 Most likely parkinsonian. No acute intervention at this time. (8) Trigeminal neuralgia Is this a current diagnosis for this admission?: Yes Plan: 09/23/2019 Chronic and ongoing. Medication changes as noted above. 09/24/2019 Remains asymptomatic. Continue adjusted medication regimen 09/25/2019 As above 09/26/2019 Continue current regimen (9) Hyponatremia Is this a current diagnosis for this admission?: Yes Plan: 09/23/2019 This is a chronic and stable condition for this patient. We will continue to monitor sodium. 09/25/2019 Sodium remains stable (10) HTN (hypertension) Qualifiers: Hypertension type: essential hypertension Qualified Code(s): I10 - Essential (primary) hypertension Is this a current diagnosis for this admission?: Yes Plan: 09/23/2019 Continue antihypertensives at this time and monitor vital signs. Adjust medications accordingly. 09/24/2019 Blood pressure still varies but better in general is acceptable. 09/25/2019 Blood pressures are higher today. I will add hydrochlorothiazide to the losartan. I will also add a as needed IV hydralazine ordered. 09/26/2019 Blood pressures have been consistently higher. No change diltiazem to 180 mg twice daily. 09/27/2019 The addition of hydrochlorothiazide to the losartan has brought the pressure down slightly. With pulse rate still marginally high I will increase the metoprolol. 09/28/2019 We will continue to monitor before making any additional changes (11) Hyperlipidemia Qualifiers: Hyperlipidemia type: unspecified Qualified Code(s): E78.5 - Hyperlipidemia, unspecified Is this a current diagnosis for this admission?: Yes Plan: 09/23/2019 Continue statin therapy (12) Paroxysmal atrial fibrillation Is this a current diagnosis for this admission?: Yes Plan: 09/23/2019 Currently in sinus rhythm with good rate control. Continue current medication regimen. 09/26/2019 Heart rate and blood pressure have been up lately. Diltiazem has been increased to the long-acting formula at 180 mg twice daily. 09/27/2019 Metoprolol increased as above (13) Anemia Qualifiers: Anemia type: iron deficiency Iron deficiency anemia type: inadequate dietary iron intake Qualified Code(s): D50.8 - Other iron deficiency anemias Is this a current diagnosis for this admission?: Yes Plan: 09/28/2019 Patient's appetite has been poor. Anemia is most likely due to iron deficiency. We will add an iron supplement and see if she tolerates it. (14) hypokalemia The patient serum potassium level was low today. She is already on oral potassium I just think it had not had a chance to take effect. She will get IV potassium prior to transfer to [facility]. She can have her blood work checked there in a day or 2. Physical Exam Vital Signs: Temp Pulse Resp BP Pulse Ox 98.4 F 74 12 122/55 L 100 09/29/19 11:57 09/29/19 11:57 09/29/19 11:57 09/29/19 11:57 09/29/19 11:57 Intake & Output 09/28/19 09/29/19 09/30/19 06:59 06:59 06:59 Intake Total 3170 2107 1263 Balance 3170 2107 1263 Weight 65.5 kg 68.1 kg General appearance: PRESENT: no acute distress, cooperative Respiratory exam: PRESENT: clear to auscultation herbert - Anteriorly, symmetrical, unlabored. ABSENT: rales, rhonchi, tachypnea, wheezes Cardiovascular exam: PRESENT: RRR, +S1, +S2 GI/Abdominal exam: PRESENT: normal bowel sounds, soft. ABSENT: distended, guarding, tenderness Rectal exam: PRESENT: deferred Musculoskeletal exam: PRESENT: ambulatory - With walker. Was working with physical therapy., normal inspection Neurological exam: PRESENT: alert, awake, oriented to person Psychiatric exam: ABSENT: agitated, anxious Additional comments: I have had multiple long talks with both the patient's Adrián as well as her son and daughter. The patient is being transferred for short-term rehab. She has done very well over the last couple days in the hospital. The new medication regimen seems to be doing well. Unfortunately due to her age and comorbidities she may lose momentum and start to decline. If there is a complication please reach out to continue home hospice. The family has already been in touch with continue him. If the patient did not improve during this hospitalization I believe that is the direction they were going to go however the patient did improve during her stay. Continue the current medication regimen. If the patient does decline please talk to the family as they may choose hospice instead of returning to the emergency department at [facility]. Results Laboratory Results: WBC 6.4 10^3/uL (4.0-10.5) 09/29/19 05:32 RBC 2.92 10^6/uL (3.72-5.28) L 09/29/19 05:32 Hgb 9.2 g/dL (12.0-15.5) L 09/29/19 05:32 Hct 26.6 % (36.0-47.0) L 09/29/19 05:32 MCV 91 fl (80-97) 09/29/19 05:32 MCH 31.7 pg (27.0-33.4) 09/29/19 05:32 MCHC 34.8 g/dL (32.0-36.0) 09/29/19 05:32 RDW 14.4 % (11.5-14.0) H 09/29/19 05:32 Plt Count 248 10^3/uL (150-450) 09/29/19 05:32 Lymph % (Auto) 9.1 % (13-45) L 09/29/19 05:32 [place] % (Auto) 6.1 % (3-13) 09/29/19 05:32 Eos % (Auto) 1.2 % (0-6) 09/29/19 05:32 Baso % (Auto) 1.1 % (0-2) 09/29/19 05:32 Absolute Neuts (auto) 5.3 10^3/uL (1.7-8.2) 09/29/19 05:32 Absolute Lymphs (auto) 0.6 10^3/uL (0.5-4.7) 09/29/19 05:32 Absolute Monos (auto) 0.4 10^3/uL (0.1-1.4) 09/29/19 05:32 Absolute Eos (auto) 0.1 10^3/uL (0.0-0.6) 09/29/19 05:32 Absolute Basos (auto) 0.1 10^3/uL (0.0-0.2) 09/29/19 05:32 Seg Neutrophils % 82.5 % (42-78) H 09/29/19 05:32 PT 14.7 SEC (11.4-15.4) 09/22/19 22:45 INR 1.14 09/22/19 22:45 D-Dimer 5.21 ug/mL (0.00-0.50) H 09/22/19 22:45 Carbonic Acid 1.16 mmol/L (1.05-1.35) 09/22/19 22:58 HCO3/H2CO3 Ratio 21:1 09/22/19 22:58 ABG pH 7.42 (7.35-7.45) 09/22/19 22:58 ABG pCO2 38.6 mmHg (35-45) 09/22/19 22:58 ABG pO2 141.4 mmHg (80-100) H 09/22/19 22:58 ABG HCO3 24.6 mmol/L (20-24) H 09/22/19 22:58 ABG Total CO2 25.8 mmol/L (21-25) H 09/22/19 22:58 ABG O2 Saturation 98.9 % (94-98) H 09/22/19 22:58 ABG Base Excess 0.2 mmol/L 09/22/19 22:58 FiO2 3L 09/22/19 22:58 Sodium 131.5 mmol/L (137-145) L 09/29/19 05:32 Potassium 2.4 mmol/L (3.6-5.0) L* 09/29/19 05:32 Chloride 95 mmol/L (98-107) L 09/29/19 05:32 Carbon Dioxide 29 mmol/L (22-30) 09/29/19 05:32 Anion Gap 8 (5-19) 09/29/19 05:32 BUN 4 mg/dL (7-20) L 09/29/19 05:32 Creatinine 0.44 mg/dL (0.52-1.25) L 09/29/19 05:32 Est GFR ( Amer) > 60 (>60) 09/29/19 05:32 Est GFR (MDRD) Non-Af > 60 (>60) 09/29/19 05:32 Glucose 104 mg/dL (75-110) 09/29/19 05:32 Lactic Acid 1.3 mmol/L (0.7-2.1) 09/22/19 22:45 Calcium 8.1 mg/dL (8.4-10.2) L 09/29/19 05:32 Magnesium 1.2 mg/dL (1.6-2.3) L* 09/29/19 05:32 Total Bilirubin 0.4 mg/dL (0.2-1.3) 09/22/19 22:45 Direct Bilirubin 0.1 mg/dL (0.0-0.4) 09/22/19 22:45 Neonat Total Bilirubin Not Reportable 09/22/19 22:45 Neonat Direct Bilirubin Not Reportable 09/22/19 22:45 Neonat Indirect Bili Not Reportable 09/22/19 22:45 AST 67 U/L (14-36) H 09/22/19 22:45 ALT 55 U/L (<35) H 09/22/19 22:45 Alkaline Phosphatase 127 U/L (38-126) H 09/22/19 22:45 Ammonia < 8.7 umol/L (9-33) L 09/23/19 07:55 CK-MB (CK-2) 0.84 ng/mL (<4.55) 09/22/19 22:45 Troponin I < 0.012 ng/mL 09/22/19 22:45 NT-Pro-B Natriuret Pep 475 pg/mL (<450) H 09/22/19 22:45 Total Protein 7.1 g/dL (6.3-8.2) 09/22/19 22:45 Albumin 3.4 g/dL (3.5-5.0) L 09/22/19 22:45 TSH 2.13 uIU/mL (0.47-4.68) 09/22/19 21:35 Cortisol AM Sample 24.70 ug/dL (4.46-22.7) H 09/25/19 04:52 Urine Color NEO 09/22/19 23:15 Urine Appearance SLIGHTLY-CLOUDY 09/22/19 23:15 Urine pH 6.0 (5.0-9.0) 09/22/19 23:15 Ur Specific [place] 1.018 09/22/19 23:15 Urine Protein 100 mg/dL (NEGATIVE) H 09/22/19 23:15 Urine Glucose (UA) NEGATIVE mg/dL (NEGATIVE) 09/22/19 23:15 Urine Ketones NEGATIVE mg/dL (NEGATIVE) 09/22/19 23:15 Urine Blood NEGATIVE (NEGATIVE) 09/22/19 23:15 Urine Nitrite NEGATIVE (NEGATIVE) 09/22/19 23:15 Urine Bilirubin NEGATIVE (NEGATIVE) 09/22/19 23:15 Urine Urobilinogen NEGATIVE mg/dL (<2.0) 09/22/19 23:15 Ur Leukocyte Esterase TRACE (NEGATIVE) H 09/22/19 23:15 Urine WBC (Auto) 23 /HPF 09/22/19 23:15 Urine RBC (Auto) 2 /HPF 09/22/19 23:15 U Hyaline Cast (Auto) 1 /LPF 09/22/19 23:15 Urine Bacteria (Auto) 2+ /HPF 09/22/19 23:15 Squamous Epi Cells Auto <1 /HPF 09/22/19 23:15 Urine Mucus (Auto) FEW /LPF 09/22/19 23:15 Urine Ascorbic Acid NEGATIVE (NEGATIVE) 09/22/19 23:15 Carbamazepine 8.4 ug/mL (4.0-12.0) 09/23/19 07:55 COVID-19 Source NASOPHARYNGEAL 09/26/19 13:52 COVID-19 (MAISHA) NOT DETECTED 09/26/19 13:52 09/22/19 22:45 CK-MB (CK-2) 0.84 Troponin I < 0.012 NT-Pro-B Natriuret Pep 475 H Impressions: Head CT 09/22/19 00:00 IMPRESSION: 1. No acute hemorrhage or mass lesion. 2. Age-related volume loss with extensive white matter changes suggestive of small vessel ischemic disease. The appearance is stable. Chest X-Ray 09/22/19 21:42 IMPRESSION: No acute cardiopulmonary process copyright 2011 [employer]- All Rights Reserved Plan Health Concerns: Advanced age and multiple comorbidities Plan of Treatment: The patient is being transferred to [facility] care home. We are taking advantage of her recent improvement. We are going to try to regain as much function as possible. She has been improving daily. If she were to decline or take a turn for the worse the family has already been in touch with [facility] services. I believe her son Marie had reached out to them. Prior to transferring the patient back to [facility] please consult with the family and [facility] as they may wish to transition to hospice service. Please call with any questions. Goals: Regain as much function and endurance as possible during her anticipated less than 30 day stay at care home. Time Spent: Greater than 30 Minutes Stroke Is this a Stroke Patient?: No Acute Heart Failure - Is this a Heart Failure Patient?: No
[2019-09-29] MEDS ORDERED: MAGNESIUM SULFATE/D5W 1 GM/100 ML RTUPB IV ONE (15:35)
[2019-09-29 17:58] VITALS: BP 138/59
== END 2019-09-29 17:55 | DRG 92 ==
LOC: ER 20:35 → EH 09-23 02:41 → 4S 09-23 03:35
PROVIDERS: ADMIT Internal Medicine; ATTEND Hospitalist
DX: G92 Toxic encephalopathy (principal); N39.0 Urinary tract infection, site not specified; E87.1 Hypo-osmolality and hyponatremia; Z16.21 Resistance to vancomycin; T45.0X5A Adverse effect of antiallergic and antiemetic drugs, initial encounter; T42.6X5A Adverse effect of other antiepileptic and sedative-hypnotic drugs, initial encounter; R25.1 Tremor, unspecified; D50.8 Other iron deficiency anemias; E87.6 Hypokalemia; I48.0 Paroxysmal atrial fibrillation; M19.90 Unspecified osteoarthritis, unspecified site; G40.909 Epilepsy, unspecified, not intractable, without status epilepticus; F03.90 Unspecified dementia, unspecified severity, without behavioral disturbance, psychotic disturbance, mood disturbance, and anxiety; I10 Essential (primary) hypertension; G50.0 Trigeminal neuralgia; Z20.828 Contact with and (suspected) exposure to other viral communicable diseases; E78.5 Hyperlipidemia, unspecified; Z90.49 Acquired absence of other specified parts of digestive tract; Z66 Do not resuscitate; Z88.8 Allergy status to other drugs, medicaments and biological substances; Z87.440 Personal history of urinary (tract) infections
CPT/HCPCS: 36415; 70450; 71045; 80048; 80053; 80156; 81001; 82140; 82533; 82553; 82803; 83605; 83735; 83880; 84443; 84484; 85025; 85379; 85610; 87086; 87088; 87186; 87635; 93005; 93010; 96360; 99291; 99292; C9803; J0360; J1644; J3475; J3480; J3490; J7030